=== PATIENT | female | born 1935 | race Caucasian/White ===

== ENCOUNTER 2018-03-31 13:56 | Emergency (ER) | payer OTHER ==
--- OUTSIDE RECORDS SUMMARY | 2018-03-31 13:58 | XMS REPORT | Clinical Summary ---
:1935 Author Organization [facility] Address [address] [place] [address] Phone Care Team Providers Name Role Phone Unavailable Primary Care Provider Unavailable Allergies Active Allergy Reactions Severity Noted Date Comments Tree Nut Swelling 05/11/2016 Only with "mixed nuts". Current Medications Prescription Sig. Disp. Refills Start Date End Date Status aspirin 81 MG EC tablet Take 81 mg by mouth Active daily. b complex vitamins tablet Take 1 tablet by Active mouth daily. buPROPion (WELLBUTRIN SR) Take 100 mg by Active 100 MG 12 hr tablet mouth daily. cyanocobalamin 1000 MCG Take 1,000 mcg by Active tablet mouth daily. difluprednate 0.05 % Drop Apply to eye(s). Active folic acid (FOLVITE) 1 MG Take 1 mg by mouth Active tablet daily. omega-3 fatty Take 2 capsules by Active acids-vitamin E 1,000 mg mouth daily. Cap pravastatin (PRAVACHOL) Take 20 mg by mouth Active 20 MG tablet daily. bromfenac 0.07 % Drop Apply to eye(s). Active RIVASTIGMINE (EXELON TD) Place 1 patch onto Active the skin daily. polymyxin B Place 1 drop into Active sulf-trimethoprim 10,000 the left eye. unit- 1 mg/mL Drop carvedilol (COREG) 6.25 Take 6.25 mg by Active MG tablet mouth 2 (two) times daily with breakfast and dinner. ergocalciferol Take 50,000 Units Active (ERGOCALCIFEROL) 50,000 by mouth once a unit capsule week. Active Problems Not on file Social History Tobacco Use Types Packs/Day Years Used Date Former Smoker Quit: 10/31/2012 Tobacco Cessation: Counseling Given: No Comments: Currently vaping "no nicotine" Alcohol Use Drinks/Week oz/Week Comments Yes occasionally Sex Assigned at Date Recorded Not on file Last Filed Vital Signs Not on file Plan of Treatment Not on file Results Not on fileafter 03/30/2017
[2018-03-31 14:41] LABS: Absolute Lymphocytes (CBC) 1.7 K/uL (0.7-4.9); Absolute Monocytes 0.4 K/uL (0.1-1.3); Absolute Neutrophil 3.5 K/uL (1.8-8.0); Basophils % 0.7 % (0-1.3); Eosinophils % 2.3 % (0-4.4); Hematocrit 39.6 % (36.0-45.0); Lymphocytes % 29.9 % (15.3-44.8); MCH 29.4 pg (27.0-35.0); MCV 88.6 fL (80-100); MPV 12.3 fL (7.6-11.3); Monocytes % 6.6 % (3.3-12.3); RBC Red Blood Cell Count 4.47 M/uL (3.86-4.86)
--- NOTE | 2018-03-31 14:49 | EKG ---
Test Date: 2018-03-31 Test Time: 14:27:32 Stenocaptioner: KATHY MEASUREMENT RESULTS: Intervals: Rate: 63 IN: 126 QRSD: 116 QT: 462 QTc: 472 [place]: P: 22 IN: 126 QRS: -60 T: -13 INTERPRETIVE STATEMENTS: Normal sinus rhythm Left axis deviation Incomplete right bundle branch block Inferior infarct, age undetermined Anterior infarct, age undetermined Abnormal ECG Compared to ECG 12/29/2017 22:43:34 No significant changes Electronically Signed On 03-31-18 14:49:15 CDT by Pineda Mcwilliams
[2018-03-31 14:51] LABS: Potassium 3.7 mEq/L (3.6-5.0)
--- NOTE | 2018-03-31 15:28 | ER ---
Nurse's Notes [facility] Name: Zonia Spencer Age: 82 yrs Sex: Female : 1935 Arrival Date: 03/31/2018 Time: 13:59 Bed 5 Private MD: Diagnosis: Syncope and collapse Presentation: 03/31 13:52 Presenting complaint: EMS states: [place] and sv daughter stated pt had a syncopal episode. Pt was helped to the ground. BS -128 BP 126/70, EKG-occasional PVCs. Transition of care: patient was not received from another setting of care. Onset of symptoms was March 31, 2018. Care prior to arrival: None. 13:52 Method Of Arrival: EMS: [facility] sv 13:52 Acuity: YAMILETH 3 sv 13:53 Risk Assessment: Do you want to hurt yourself or someone else? Patient reports no sv desire to harm self or others. Initial Sepsis Screen: Does the patient meet any 2 criteria? Altered Mental Status. Yes Does the patient have a suspected source of infection? No. Patient's initial sepsis screen is negative. Triage Assessment: 13:55 General: Appears in no apparent distress. comfortable, slender, Behavior is calm, sv cooperative, appropriate for age. Pain: Denies pain. EENT: No signs and/or symptoms were reported regarding the EENT system. Neuro: Level of Consciousness is awake, alert, obeys commands, Oriented to person, place, situation, Moves all extremities. Full function Speech is normal. Cardiovascular: Heart tones S1 S2 present Patient's skin is warm and dry. Pulses are 3+ in right radial artery and left radial artery Rhythm is sinus rhythm. Respiratory: Airway is patent Respiratory effort is even, unlabored, Respiratory pattern is regular, symmetrical. Derm: Skin is pink, warm \T\ dry. Musculoskeletal: Circulation, motion, and sensation intact. Range of motion: intact in all extremities. 15:10 Neuro: No deficits noted. Reports a syncopal episode. sg Historical: - Allergies: 14:05 No Known Allergies; sv - Home Meds: 14:05 alendronate 70 mg Oral tab 1 tab once wkly [Active]; aspirin 81 mg Oral TbEC 2 tabs sv once daily [Active]; bupropion HCl 100 mg Oral TbER 1 tab once daily [Active]; carvedilol 25 mg Oral tab 1 tab 2 times per day [Active]; Exelon 9.5 mg/24 hr transdermal pt24 1 patch once daily [Active]; Fish Oil 1,000 mg Oral cap twice a day [Active]; folic acid 1 mg Oral tab 1 tab once daily [Active]; multivitamin Oral tab daily [Active]; pravastatin 20 mg Oral tab 1 tab once daily [Active]; Vitamin B-12 1,000 mcg Oral tab daily [Active]; - PMHx: 14:05 Dementia; High Cholesterol; Hypertension; Osteoporosis; TIA; sv - PSHx: 14:05 Gastric Bypass; Cholecystectomy; eye surg; catartact surg bilaterally; sv - Immunization history:: Adult Immunizations unknown. - Social history:: Smoking status: Patient/guardian denies using tobacco. - Ebola Screening: : No symptoms or risks identified at this time. Screenin:00 Abuse screen: Denies threats or abuse. Denies injuries from another. Nutritional sv screening: No deficits noted. Tuberculosis screening: No symptoms or risk factors identified. Fall Risk No fall in past 12 months (0 pts). Secondary diagnosis (15 points) dementia, IV access (20 points). Ambulatory Aid- None/Bed Rest/Nurse Assist (0 pts). Gait- Normal/Bed Rest/Wheelchair (0 pts) Mental Status- Oriented to own ability (0 pts). Total Navarrete Fall Scale indicates Low Risk Score (25-44 pts). Fall prevention measures have been instituted. Side Rails Up X 2 Frequent Obs/Assesments occuring As available Patient and Family Educated on Fall Prevention Program and strategies. Assessment: 14:58 Reassessment: Patient appears in no apparent distress at this time. No changes from sv previously documented assessment. Patient and/or family updated on plan of care and expected duration. Pain level reassessed. Vital Signs: 14:06 BP 125 / 53; Pulse 64; Resp 19; Temp 97.5; Pulse Ox 96% on R/A; sv 14:58 BP 139 / 71; Pulse 62; Resp 16; Pulse Ox 99% on R/A; sv 15:45 BP 130 / 77; Pulse 63; Resp 18; Pulse Ox 97% on R/A; sv ED Course: 13:59 Patient arrived in ED. sv 14:00 Anastacia Balderas RN is Primary Nurse. sv 14:00 Arm band placed on right wrist. 14:00 Patient has correct armband on for positive identification. Placed in gown. Bed in low sv position. Side rails up X2. director of medical education on. Pulse ox on. NIBP on. Door closed. Warm blanket given. Head of bed elevated. 14:02 Triage completed. sv 14:04 Sal Bojorquez MD is Attending Physician. 14:08 Initial lab(s) drawn, by ok, held in ED. Inserted saline lock: 22 gauge in right [facility] antecubital area, using aseptic technique. Blood collected. 14:28 Initial lab(s) drawn, sent to lab. [facility] 14:35 EKG done, by analytical technician. reviewed by Sal Bojorquez MD. [facility] 15:00 No provider procedures requiring assistance completed. IV discontinued, intact, sg bleeding controlled, No redness/swelling at site. Pressure dressing applied. Administered Medications: No medications were administered Outcome: 15:28 Discharge ordered by MD. 16:30 Discharged to home ambulatory, with family. 16:30 Condition: stable 16:30 Discharge instructions given to patient, family, Instructed on discharge instructions, follow up and referral plans. safety practices, Demonstrated understanding of instructions, follow-up care. 16:32 Patient left the ED. [facility] Signatures: Anastacia Balderas RN RN Neftali Foy RN RN Nicky Butler [facility] Sal Bojorquez MD MD gs Montes, Shakira [facility]
--- NOTE | 2018-03-31 15:28 | EDPHYS ---
Physician Documentation [facility] Name: Zonia Spencer Age: 82 yrs Sex: Female : 1935 Arrival Date: 03/31/2018 Time: 13:59 Bed 5 Private MD: ED Physician Sal Bojorquez HPI: 03/31 15:43 This 82 yrs old Female presents to ER via EMS with complaints of Syncope. gs 15:43 The patient has experienced syncope, became unresponsive, collapsed. Onset: The gs symptoms/episode began/occurred acutely, just prior to arrival. Duration: This was a single episode, that lasted 30 second(s). Associated injury: The patient did not suffer any apparent associated injury. Associated signs and symptoms: Pertinent negatives: abdominal pain, agitation, ataxia, blurred vision, chest pain, combativeness, confusion, diaphoresis, diarrhea, dizziness, headache, lightheadedness, nausea, numbness, palpitations, seizure, shortness of breath, tingling, vertigo, vomiting, weakness. Current symptoms: Currently, the patient is not experiencing any symptoms, the patient feels back to baseline. The patient has experienced similar episodes in the past, multiple times, and the symptoms today are exactly the same, had work up , negative. Historical: - Allergies: 14:05 No Known Allergies; sv - Home Meds: 14:05 alendronate 70 mg Oral tab 1 tab once wkly [Active]; aspirin 81 mg Oral TbEC 2 tabs sv once daily [Active]; bupropion HCl 100 mg Oral TbER 1 tab once daily [Active]; carvedilol 25 mg Oral tab 1 tab 2 times per day [Active]; Exelon 9.5 mg/24 hr transdermal pt24 1 patch once daily [Active]; Fish Oil 1,000 mg Oral cap twice a day [Active]; folic acid 1 mg Oral tab 1 tab once daily [Active]; multivitamin Oral tab daily [Active]; pravastatin 20 mg Oral tab 1 tab once daily [Active]; Vitamin B-12 1,000 mcg Oral tab daily [Active]; - PMHx: 14:05 Dementia; High Cholesterol; Hypertension; Osteoporosis; TIA; sv - PSHx: 14:05 Gastric Bypass; Cholecystectomy; eye surg; catartact surg bilaterally; sv - Immunization history:: Adult Immunizations unknown. - Social history:: Smoking status: Patient/guardian denies using tobacco. - Ebola Screening: : No symptoms or risks identified at this time. ROS: 15:43 All other systems are negative. gs Exam: 15:43 Head/Face: Normocephalic, atraumatic. Eyes: Pupils equal round and reactive to light, gs extra-ocular motions intact. Lids and lashes normal. Conjunctiva and sclera are non-icteric and not injected. Cornea within normal limits. Periorbital areas with no swelling, redness, or edema. ENT: Nares patent. No nasal discharge, no septal abnormalities noted. Tympanic membranes are normal and external auditory canals are clear. Oropharynx with no redness, swelling, or masses, exudates, or evidence of obstruction, uvula midline. Mucous membranes moist. Neck: Trachea midline, no thyromegaly or masses palpated, and no cervical lymphadenopathy. Supple, full range of motion without nuchal rigidity, or vertebral point tenderness. No Meningismus. Chest/axilla: Normal chest wall appearance and motion. Nontender with no deformity. No lesions are appreciated. Cardiovascular: Regular rate and rhythm with a normal S1 and S2. No gallops, murmurs, or rubs. Normal PMI, no JVD. No pulse deficits. Respiratory: Lungs have equal breath sounds bilaterally, clear to auscultation and percussion. No rales, rhonchi or wheezes noted. No increased work of breathing, no retractions or nasal flaring. Abdomen/GI: Soft, non-tender, with normal bowel sounds. No distension or tympany. No guarding or rebound. No evidence of tenderness throughout. Back: No spinal tenderness. No costovertebral tenderness. Full range of motion. Skin: Warm, dry with normal turgor. Normal color with no rashes, no lesions, and no evidence of cellulitis. MS/ Extremity: Pulses equal, no cyanosis. Neurovascular intact. Full, normal range of motion. Neuro: Awake and alert, GCS 15, oriented to person, place, time, and situation. Cranial nerves II-XII grossly intact. Motor strength 5/5 in all extremities. Sensory grossly intact. Cerebellar exam normal. Normal gait. 15:43 ECG was reviewed by the Attending Physician. Vital Signs: 14:06 BP 125 / 53; Pulse 64; Resp 19; Temp 97.5; Pulse Ox 96% on R/A; sv 14:58 BP 139 / 71; Pulse 62; Resp 16; Pulse Ox 99% on R/A; sv 15:45 BP 130 / 77; Pulse 63; Resp 18; Pulse Ox 97% on R/A; sv MDM: 14:13 Patient medically screened. 15:43 Differential Diagnosis: cardiac arrhythmia, drug effect, idiopathic syncope. Data reviewed: vital signs, nurses notes. Response to treatment: the patient's symptoms have resolved after treatment, and as a result, I will discharge patient. 03/31 14:16 Order name: Basic Metabolic Panel; Complete Time: 15:27 03/31 14:16 Order name: CBC with Diff; Complete Time: 15:27 03/31 14:16 Order name: Troponin (emerg Dept Use Only); Complete Time: 15:27 03/31 14:16 Order name: EKG; Complete Time: 14:17 03/31 14:16 Order name: Cardiac monitoring; Complete Time: 14:41 03/31 14:16 Order name: EKG - Nurse/Tech; Complete Time: 14:41 03/31 14:16 Order name: IV Saline Lock; Complete Time: 14:41 03/31 14:16 Order name: Labs collected and sent; Complete Time: 14:41 03/31 14:16 Order name: O2 Per Protocol; Complete Time: 14:41 03/31 14:16 Order name: O2 Sat Monitoring; Complete Time: 14:41 EC:43 Rate is 63 beats/min. Rhythm is regular. MT interval is normal. QT interval is normal. gs T waves are Flattened. No ST changes noted. Clinical impression: NSR w/ Non-specific ST/T Changes. Interpreted by me. Administered Medications: No medications were administered Disposition: 03/31/18 15:28 Discharged to Home. Impression: Syncope and collapse. - Condition is Stable. - Discharge Instructions: Syncope. - Medication Reconciliation Form, Thank You Letter, Antibiotic Education, Prescription Opioid Use form. - Follow up: Private Physician; When: 2 - 3 days; Reason: Re-evaluation by your physician. Signatures: Dispatcher [employer] Anastacia Briseno RN RN sv Herrera, Deanna [facility] Sal Bojorquez MD MD Corrections: (The following items were deleted from the chart) 16:32 15:28 03/31/2018 15:28 Discharged to Home. Impression: Syncope and collapse. Condition dh3 is Stable. Forms are Medication Reconciliation Form, Thank You Letter, Antibiotic Education, Prescription Opioid Use. Follow up: Private Physician; When: 2 - 3 days; Reason: Re-evaluation by your physician. gs
== END 2018-03-31 16:32 | disposition home or self-care (01) ==
LOC: ER 13:56
DX: R55 Syncope and collapse (principal); I10 Essential (primary) hypertension; E78.00 Pure hypercholesterolemia, unspecified; F03.90 Unspecified dementia, unspecified severity, without behavioral disturbance, psychotic disturbance, mood disturbance, and anxiety; Z79.82 Long term (current) use of aspirin
CPT/HCPCS: 36415; 80048; 84484; 85025; 93005; 99284

== ENCOUNTER 2018-05-04 16:50 | Emergency (ER) | payer OTHER ==
--- OUTSIDE RECORDS SUMMARY | 2018-05-04 16:52 | XMS REPORT | Clinical Summary ---
:1935 Author Organization [facility] Address [address] [place] [address] Phone Care Team Providers Name Role Phone [...] Not on file Results Not on fileafter 05/03/2017
--- NOTE | 2018-05-04 17:41 | RAD REPORT ---
EXAM DESCRIPTION: CT - Head Brain Wo Cont - 05/04/2018 5:34 pm CLINICAL HISTORY: Fall, trauma to back of head, headache COMPARISON: CT head December 29 TECHNIQUE: Axial 5 mm thick images of the head were obtained without IV contrast. All CT scans are performed using dose optimization technique as appropriate and may include automated exposure control or mA/KV adjustment according to patient size. FINDINGS: No intracranial hemorrhage, mass, edema or shift of mid-line structures. No acute cortical based infarction. Patient has prominent atrophy and chronic ischemic change. No abnormal extra-axial fluid collections. Ventricles are in proportion to volume loss. Arterial and physiologic calcificati ons are present. Mastoid air cells and visualized portions of the paranasal sinuses are clear. No acute bony findings. Skin randy are present posterior left site of laceration repair. CT head findings are not significantly different from the December 29 comparison. IMPRESSION: Advanced atrophy and chronic ischemic change. No acute intracranial finding.
--- NOTE | 2018-05-04 17:57 | ER ---
Nurse's Notes [facility] Name: Zonia Spencer Age: 82 yrs Sex: Female : 1935 Arrival Date: 05/04/2018 Time: 16:54 Bed 19 Private MD: CHECO HATCH Diagnosis: Laceration without foreign body of scalp Presentation: 05/04 17:02 Presenting complaint: Patient states: I was walking into the house, lost my balance and sg started falling backwards, fell and hit my head on the railing, denies LOC, denies N/V/D/F, reports left pinky pain but i think its due to the laceration. Care prior to arrival: None. Mechanism of Injury: Fall from standing position. 17:02 Acuity: YAMILETH 3 sg 17:02 Method Of Arrival: Ambulatory sg 18:31 Transition of care: patient was not received from another setting of care. Onset of aj1 symptoms was May 04, 2018. Risk Assessment: Do you want to hurt yourself or someone else? Patient reports no desire to harm self or others. Initial Sepsis Screen: Does the patient meet any 2 criteria? No. Patient's initial sepsis screen is negative. Does the patient have a suspected source of infection? No. Patient's initial sepsis screen is negative. Historical: - Allergies: 17:05 No Known Allergies; sg - PMHx: 17:05 Dementia; High Cholesterol; Hypertension; Osteoporosis; TIA; sg - PSHx: 17:05 Gastric Bypass; Cholecystectomy; eye surg; catartact surg bilaterally; sg - Immunization history:: Last tetanus immunization: up to date. - Social history:: Smoking status: Patient/guardian denies using tobacco. - Ebola Screening: : Patient denies travel to an Ebola-affected area in the 21 days before illness onset. Screenin:30 Abuse screen: Denies threats or abuse. Denies injuries from another. Nutritional aj1 screening: No deficits noted. Tuberculosis screening: No symptoms or risk factors identified. 17:30 Fall Risk Fall in past 12 months (25 points). No secondary diagnosis (0 pts). No IV (0 aj1 pts). Ambulatory Aid- None/Bed Rest/Nurse Assist (0 pts). Gait- Normal/Bed Rest/Wheelchair (0 pts) Mental Status- Oriented to own ability (0 pts). Total Navarrete Fall Scale indicates Low Risk Score (25-44 pts). As available Patient and Family Educated on Fall Prevention Program and strategies. Assessment: 17:30 General: Appears in no apparent distress. comfortable, Behavior is calm, cooperative, aj1 appropriate for age. Pain: Complains of pain in scalp. Neuro: Level of Consciousness is awake, alert, obeys commands, Oriented to person, place, time, situation, [place] Operator are equal bilaterally Moves all extremities. Full function Speech is normal, Facial symmetry appears normal. Cardiovascular: Patient's skin is warm and dry. Respiratory: Airway is patent Respiratory effort is even, unlabored, Respiratory pattern is regular, symmetrical. GI: No signs and/or symptoms were reported involving the gastrointestinal system. : No signs and/or symptoms were reported regarding the genitourinary system. EENT: No signs and/or symptoms were reported regarding the EENT system. Derm: Skin is pink, warm \T\ dry. normal. Musculoskeletal: Circulation, motion, and sensation intact. Injury Description: Laceration sustained to left side of the back of head is 0.5 to 2.5 cm long. 18:31 Reassessment: Patient appears in no apparent distress at this time. No changes from aj1 previously documented assessment. Patient and/or family updated on plan of care and expected duration. Pain level reassessed. Patient is alert, oriented x 3, equal unlabored respirations, skin warm/dry/pink. Vital Signs: 17:04 BP 198 / 81; Pulse 75 MON; Resp 16 S; Temp 98.1; Pulse Ox 98% on R/A; Weight 66.22 kg; sg Height 5 ft. 2 in. (157.48 cm) (R); Pain 0/10; 18:15 BP 182 / 88; Pulse 63; Resp 18; Pulse Ox 99% ; aj1 17:04 Body Mass Index 26.70 (66.22 kg, 157.48 cm) sg [place] Coma Score: 17:04 Eye Response: spontaneous(4). Verbal Response: oriented(5). Motor Response: obeys sg commands(6). Total: 15. ED Course: 16:54 Patient arrived in ED. sb2 16:54 CHECO HATCH is Private Physician. sb2 17:04 Triage completed. sg 17:06 [facility] jr8 17:06 Levar Trevino MD is Attending Physician. jr8 17:17 Patsy Mims, RN is Primary Nurse. aj1 17:[address] kc3 17:30 Patient has correct armband on for positive identification. Bed in low position. Call aj1 light in reach. Side rails up X 1. 17:30 No provider procedures requiring assistance completed. Patient did not have IV access aj1 during this emergency room visit. 17:34 CT Head Brain wo Cont In Process Unspecified. EDMS 17:57 CHECO HATCH is Referral Physician. jr8 Administered Medications: 18:19 Not Given (tetanus up to date): Tetanus-Diphtheria Toxoid Adult 0.5 ml IM once aj Outcome: 17:57 Discharge ordered by . jr8 18:32 Discharged to home ambulatory. aj1 18:32 Condition: good 18:32 Discharge instructions given to patient, Instructed on discharge instructions, follow up and referral plans. Demonstrated understanding of instructions, follow-up care. 18:33 Patient left the ED. aj1 Signatures: Dispatcher [employer] EDMO Patsy Mims, RN RN aj1 Neftali Foy RN RN Oneil Wyman PA PA jr8 Bridget Bruce kc3 Sangita William2
--- NOTE | 2018-05-04 17:58 | EDPHYS ---
Physician Documentation [facility] Name: Zonia Spencer Age: 82 yrs Sex: Female : 1935 Arrival Date: 05/04/2018 Time: 16:54 Bed 19 Private MD: [facility] ED Physician Levar Trevino HPI: 05/04 17:24 This 82 yrs old Female presents to ER via Ambulatory with complaints of Fall jr8 Injury. 17:24 Details of fall: The patient fell from an upright position. Onset: The symptoms/episode jr8 began/occurred acutely, today. Associated injuries: The patient sustained injury to the head, laceration, 2.5 cm(s). Severity of symptoms: At their worst the symptoms were mild, in the emergency department the symptoms are unchanged. The patient has not experienced similar symptoms in the past. The patient has not recently seen a physician. Patient stated that she lost balance and fell backwards hitting the back of her head. Denies LOC. Historical: - Allergies: 17:05 No Known Allergies; sg - PMHx: 17:05 Dementia; High Cholesterol; Hypertension; Osteoporosis; TIA; sg - PSHx: 17:05 Gastric Bypass; Cholecystectomy; eye surg; catartact surg bilaterally; sg - Immunization history:: Last tetanus immunization: up to date. - Social history:: Smoking status: Patient/guardian denies using tobacco. - Ebola Screening: : Patient denies travel to an Ebola-affected area in the 21 days before illness onset. ROS: 17:24 Eyes: Negative for injury, pain, redness, and discharge, ENT: Negative for injury, jr8 pain, and discharge, Neck: Negative for injury, pain, and swelling, Cardiovascular: Negative for chest pain, palpitations, and edema, Respiratory: Negative for shortness of breath, cough, wheezing, and pleuritic chest pain, Abdomen/GI: Negative for abdominal pain, nausea, vomiting, diarrhea, and constipation, Back: Negative for injury and pain, MS/Extremity: Negative for injury and deformity, Neuro: Negative for headache, weakness, numbness, tingling, and seizure. 17:24 Skin: Positive for laceration(s), of the scalp. Exam: 17:24 Eyes: Pupils equal round and reactive to light, extra-ocular motions intact. Lids and jr8 lashes normal. Conjunctiva and sclera are non-icteric and not injected. Cornea within normal limits. Periorbital areas with no swelling, redness, or edema. ENT: Nares patent. No nasal discharge, no septal abnormalities noted. Tympanic membranes are normal and external auditory canals are clear. Oropharynx with no redness, swelling, or masses, exudates, or evidence of obstruction, uvula midline. Mucous membranes moist. Neck: Trachea midline, no thyromegaly or masses palpated, and no cervical lymphadenopathy. Supple, full range of motion without nuchal rigidity, or vertebral point tenderness. No Meningismus. Cardiovascular: Regular rate and rhythm with a normal S1 and S2. No gallops, murmurs, or rubs. Normal PMI, no JVD. No pulse deficits. Respiratory: Lungs have equal breath sounds bilaterally, clear to auscultation and percussion. No rales, rhonchi or wheezes noted. No increased work of breathing, no retractions or nasal flaring. Abdomen/GI: Soft, non-tender, with normal bowel sounds. No distension or tympany. No guarding or rebound. No evidence of tenderness throughout. Back: No spinal tenderness. No costovertebral tenderness. Full range of motion. Skin: Warm, dry with normal turgor. Normal color with no rashes, no lesions, and no evidence of cellulitis. MS/ Extremity: Pulses equal, no cyanosis. Neurovascular intact. Full, normal range of motion. Neuro: Awake and alert, GCS 15, oriented to person, place, time, and situation. Cranial nerves II-XII grossly intact. Motor strength 5/5 in all extremities. Sensory grossly intact. Cerebellar exam normal. Normal gait. 17:24 Head/face: Noted is a laceration(s), that is deep, that is linear, 2.5 cm(s), of the left side of the back of head. Vital Signs: 17:04 BP 198 / 81; Pulse 75 MON; Resp 16 S; Temp 98.1; Pulse Ox 98% on R/A; Weight 66.22 kg; Height 5 ft. 2 in. (157.48 cm) (R); Pain 0/10; 18:15 BP 182 / 88; Pulse 63; Resp 18; Pulse Ox 99% ; aj1 17:04 Body Mass Index 26.70 (66.22 kg, 157.48 cm) Graeme Coma Score: 17:04 Eye Response: spontaneous(4). Verbal Response: oriented(5). Motor Response: obeys sg commands(6). Total: 15. Laceration: 17:24 Wound Repair of 2.5cm ( 1.0in ) subcutaneous laceration to left side of the back of jr8 head. Distal neuro/vascular/tendon intact. Wound prep: Extensive cleansing with hibiclenz, Wound irrigation with saline, Wound explored extensively. Skin closed with 7 randy [place] using interrupted sutures and sterile technique. Patient tolerated well. MDM: 17:06 Patient medically screened. jr8 17:24 Data reviewed: vital signs, nurses notes, radiologic studies, CT scan, and as a result, jr8 I will discharge patient. Data interpreted: Pulse oximetry: on room air is 98 %. Interpretation: normal. Counseling: I had a detailed discussion with the patient and/or guardian regarding: the historical points, exam findings, and any diagnostic results supporting the discharge/admit diagnosis, lab results, radiology results, the need for outpatient follow up, a family practitioner, to return to the emergency department if symptoms worsen or persist or if there are any questions or concerns that arise at home. 05/04 17:23 Order name: CT Head Brain wo Cont; Complete Time: 17:56 jr8 Administered Medications: 18:19 Not Given (tetanus up to date): Tetanus-Diphtheria Toxoid Adult 0.5 ml IM once aj1 Disposition: 18:35 Co-signature as Attending Physician, Levar Trevino MD. rn Disposition: 05/04/18 17:57 Discharged to Home. Impression: Laceration without foreign body of scalp. - Condition is Stable. - Discharge Instructions: Laceration Care, Adult. - Medication Reconciliation Form, Thank You Letter, Antibiotic Education, Prescription Opioid Use form. - Follow up: [facility]; When: 1 week; Reason: Wound Recheck, Recheck today's complaints, Continuance of care, Staple/Suture removal, Re-evaluation by your physician. - Problem is new. - Symptoms have improved. Signatures: Dispatcher [employer] EDPatsy Puckett RN RN aj1 Neftali Foy RN RN sg Nieto, Roman, MD MD rn Roszak, Josh, PA PA jr8 Corrections: (The following items were deleted from the chart) 18:33 17:57 05/04/2018 17:57 Discharged to Home. Impression: Laceration without foreign body aj1 of scalp. Condition is Stable. Forms are Medication Reconciliation Form, Thank You Letter, Antibiotic Education, Prescription Opioid Use. Follow up: [facility]; When: 1 week; Reason: Wound Recheck, Recheck today's complaints, Continuance of care, Staple/Suture removal, Re-evaluation by your physician. Problem is new. Symptoms have improved. jr8
== END 2018-05-04 18:33 | disposition home or self-care (01) ==
LOC: ER 16:50
PROC: 0HQ0XZZ Repair Scalp Skin, External Approach (ICD-10-PCS; principal; 2018-05-04)
DX: S01.01XA Laceration without foreign body of scalp, initial encounter (principal); F03.90 Unspecified dementia, unspecified severity, without behavioral disturbance, psychotic disturbance, mood disturbance, and anxiety; I10 Essential (primary) hypertension; W19.XXXA Unspecified fall, initial encounter; Y93.89 Activity, other specified; Y92.9 Unspecified place or not applicable; Y99.9 Unspecified external cause status
CPT/HCPCS: 70450; 99284

== ENCOUNTER 2019-05-27 12:17 | Emergency (ER) | payer OTHER ==
--- OUTSIDE RECORDS SUMMARY | 2019-05-27 12:19 | XMS REPORT | Clinical Summary ---
:1935 Author Organization [facility] Address [address] [place] [id number] Care Team Providers Name Role Phone Joe Primary Care Provider Allergies Active Allergy Reactions Severity Noted Date Comments Tree Nut Swelling 05/11/2016 Only with "mixed nuts". Medications Medication Sig Dispensed Refills Start Date End Date Status aspirin 81 MG EC tablet Take 81 mg by 0 Active mouth daily. b complex vitamins Take 1 tablet by 0 Active tablet mouth daily. buPROPion (WELLBUTRIN Take 100 mg by 0 Active SR) 100 MG 12 hr tablet mouth daily. cyanocobalamin 1000 MCG Take 1,000 mcg by 0 Active tablet mouth daily. difluprednate 0.05 % Apply to eye(s). 0 Active Drop folic acid (FOLVITE) 1 Take 1 mg by 0 Active MG tablet mouth daily. omega-3 fatty Take 2 capsules 0 Active acids-vitamin E 1,000 by mouth daily. mg Cap pravastatin (PRAVACHOL) Take 20 mg by 0 Active 20 MG tablet mouth daily. bromfenac 0.07 % Drop Apply to eye(s). 0 Active RIVASTIGMINE (EXELON Place 1 patch 0 Active TD) onto the skin daily. polymyxin B Place 1 drop into 0 Active sulf-trimethoprim the left eye. 10,000 unit- 1 mg/mL Drop carvedilol (COREG) 6.25 Take 6.25 mg by 0 Active MG tablet mouth 2 (two) times daily with breakfast and dinner. ergocalciferol Take 50,000 Units 0 Active (ERGOCALCIFEROL) 50,000 by mouth once a unit capsule week. Active Problems Not on file Social History Tobacco Use Types Packs/Day Years Used Date Former Smoker Quit: 10/31/2012 Tobacco Cessation: Counseling Given: No Comments: Currently vaping "no nicotine" Alcohol Use Drinks/Week oz/Week Comments Yes occasionally Sex Assigned at Date Recorded Not on file Job Start Date Occupation Industry Not on file Not on file Not on file Travel History Travel Start Travel End No recent travel history available. Last Filed Vital Signs Not on file Plan of Treatment Not on file Results Not on fileafter 05/26/2018 Insurance Payer Benefit Plan / Group Subscriber ID Type Phone Address MEDICARE MEDICARE A B xxxxxxxxxx Medicare (Home) [address] [place] [phone] Advance Directives Patient has advance care planning documents on file. For more information, please contact:[address] [phone]
[2019-05-27 12:56] LABS: Absolute Lymphocytes (CBC) 1.4 K/uL (0.7-4.9); Basophils % 0.4 % (0-1.3); Hematocrit 39.2 % (36.0-45.0); Lymphocytes % 21.5 % (15.3-44.8); RBC Red Blood Cell Count 4.43 M/uL (3.86-4.86)
[2019-05-27 12:59] LABS: Protime INR 0.91
[2019-05-27 13:13] LABS: Albumin 3.6 g/dL (3.4-5.0); Bilirubin Direct 0.2 mg/dL (0-0.2); Bilirubin Total 0.5 mg/dL (0.2-1.0); CKMB Creatine Kinase MB 5.2 ng/mL (0.3-3.6); Magnesium 2.2 mg/dL (1.8-2.4); Potassium 3.3 mmol/L (3.5-5.1); Protein, Total 6.7 g/dL (6.4-8.2)
--- NOTE | 2019-05-27 13:14 | RAD REPORT ---
EXAM DESCRIPTION: RAD - Chest Single View - 05/27/2019 12:54 pm CLINICAL HISTORY: Transient alteration of awareness, weakness, cough COMPARISON: December 2017 TECHNIQUE: AP portable chest image was obtained 1253 hours . FINDINGS: No focal mass or consolidation. Patient has a baseline prominent interstitial pattern that is accentuated by under penetrated film technique. Left hemithorax volume reduction due to patient l eaning to the left. Lung markings are slightly greater than the prior study. Early interstitial edema or infiltrate not e xcluded. Heart size is normal and vasculature within normal limits. Significant failure or volume ove rload not suspected. No measurable pleural effusion and no pneumothorax. No acute bony abnormality se en. No acute aortic findings suspected. IMPRESSION: No focal mass or consolidation. Perihilar markings are slightly greater than seen previo usly. Mild interstitial edema or infiltrate could be present without significant failure or volume overload .
[2019-05-27] MEDS ORDERED: cloNIDine HCl 0.1 MG TAB ONE (13:46)
--- NOTE | 2019-05-27 14:09 | RAD REPORT ---
EXAM DESCRIPTION: CT - Ct Stroke Brain Wo Cont - 05/27/2019 1:37 pm CLINICAL HISTORY: Slurred speech, weakness, dementia, stroke protocol study CLINICAL HISTORY: CT head April 2018 TECHNIQUE: Axial 5 millimeter thick images of the head were obtained without IV contrast. All CT scans are performed using dose optimization technique as appropriate and may include automated exposure control or mA/KV adjustment according to patient size. FINDINGS: No intracranial hemorrhage, mass, or cerebral edema. No acute cortical based infarction. N o cortical edema or sulcal effacement. Patient has advanced atrophy and chronic ischemic change. Vent ricles are in proportion to volume loss. No extra-axial fluid collections. Richardson matter-white matter differentiation is preserved. No globe or orbital content acute finding. Visualized portions of the mastoid air cells, paranasal sinuses, and orbits are unremarkable. Images were reviewed and findings telephoned to the referring clinician 12:36 p.m.. Exam was only ini tially available in the exception folder which precludes immediate dictation of the report. IMPRESSION: No CT evidence of acute intracranial process. Patient has advanced atrophy and chronic ischemic change not substantially different from prior year' s study. Chronic ischemic change can mask nonhemorrhagic acute CVA.
[2019-05-27] MEDS ORDERED: NA CHLORIDE 0.9% 1,000 ML ONE (14:16)
[2019-05-27] MEDS ORDERED: POTASSIUM 25 MEQ EFFERV TAB ONE (15:17)
[2019-05-27] MEDS ORDERED: LORazepam 2 MG/ML VIAL ONE (15:30)
[2019-05-27] MEDS ORDERED: levETIRAcetam 1,000 MG in NA CHLORIDE 0.9% 100 ML IV ONE (15:30)
--- NOTE | 2019-05-27 15:42 | RAD REPORT ---
EXAM DESCRIPTION: CT - Head Brain Wo Cont - 05/27/2019 3:33 pm CLINICAL HISTORY: New onset seizure COMPARISON: May 27 TECHNIQUE: Axial 5 mm thick images of the head were obtained without IV contrast. All CT scans are performed using dose optimization technique as appropriate and may include automated exposure control or mA/KV adjustment according to patient size. FINDINGS: No intracranial hemorrhage is present. No changes to the prominent atrophy and chronic isc hemic change previously detailed. No new intracranial finding. IMPRESSION: No intracranial hemorrhage. No changes to the intracranial findings since the earlier st .
[2019-05-27] MEDS ORDERED: METOPROLOL TARTRATE 5 MG/5 ML INJ IV ONE (16:11)
[2019-05-27] MEDS ORDERED: FOLIC ACID 5 MG/ML VIAL ONE (16:12)
--- NOTE | 2019-05-27 16:49 | ER ---
Nurse's Notes [facility] Name: Zonia Spencer Age: 83 yrs Sex: Female : 1935 Arrival Date: 05/27/2019 Time: 12:18 Bed 3 Private MD: Diagnosis: Seizure;Weakness-legs Presentation: 05/27 12:23 Presenting complaint: Child states: her sister went to see her yesterday and noticed sv she was a little spaced out but got back to her baseline. Daughter stated today she called her around 0800 and her voice was "different or a little slurred"; when she got to her house around 0830 pt was fine and asked her to get her a sweet tea. Daughter came back around 1145 and noticed she was not her normal and unable to get out of her chair, her brothers had to get her into the car. Transition of care: patient was not received from another setting of care. 12:23 Method Of Arrival: Wheelchair sv 12:27 An acute neurological deficit is present. The charge nurse has been notified. sv Pre-hospital glucose is not applicable to this patient. Onset of symptoms was May 27, 2019 at 11:45. Care prior to arrival: None. 12:27 Acuity: YAMILETH 2 sv 12:49 Risk Assessment: Do you want to hurt yourself or someone else? Patient reports no ss desire to harm self or others. Initial Sepsis Screen: Does the patient meet any 2 criteria? No. Patient's initial sepsis screen is negative. Does the patient have a suspected source of infection? No. Patient's initial sepsis screen is negative. Stroke Activation: Symptom onset < 3 hours Physician: Stroke Attending; Name: ; Notified At: ; Arrived At: Physician: Chief Stroke Resident; Name: ; Notified At: ; Arrived At: Physician: Stroke Resident; Name: ; Notified At: ; Arrived At: Physician: ED Attending; Name: Dr Gorman; Notified At: 12:27; Arrived At: Physician: ED Resident; Name: ; Notified At: ; Arrived At: Historical: - Allergies: 12:39 No Known Allergies; sv - Home Meds: 12:39 alendronate 70 mg Oral tab 1 tab once wkly [Active]; pravastatin 20 mg Oral tab 1 tab sv once daily [Active]; folic acid 1 mg Oral tab 1 tab once daily [Active]; Exelon 9.5 mg/24 hr transdermal pt24 1 patch once daily [Active]; Lisinopril Oral [Active]; carvedilol 25 mg Oral tab 1 tab 2 times per day [Active]; bupropion HCl 100 mg Oral TbER 1 tab once daily [Active]; aspirin 81 mg Oral TbEC 2 tabs once daily [Active]; Fish Oil 1,000 mg Oral cap twice a day [Active]; multivitamin Oral tab daily [Active]; Vitamin B-12 1,000 mcg Oral tab daily [Active]; - PMHx: 12:39 Dementia; High Cholesterol; Hypertension; Osteoporosis; TIA; sv - PSHx: 12:39 Gastric Bypass; Cholecystectomy; catartact surg bilaterally; eye surg; sv - Immunization history:: Adult Immunizations up to date. - Social history:: Smoking status: Patient/guardian denies using tobacco. - Ebola Screening: : Patient denies exposure to infectious person Patient denies travel to an Ebola-affected area in the 21 days before illness onset. Screenin:47 Abuse screen: Denies threats or abuse. Denies injuries from another. Nutritional ss screening: No deficits noted. Tuberculosis screening: Never had TB. 12:49 VAN Screening: Arm Drift: Patient shows no arm weakness. Patient is VAN negative. ss Visual Disturbance: No visual disturbance noted. Aphasia: No aphasia noted. Neglect: No neglect noted. Fall Risk. Assessment: 12:27 Reassessment: Code Stroke called and taken to CT by Nahomy from CT. sv 12:49 VAN Scoring: Arm Drift: Minor drift Visual Disturbance: No visual disturbance noted. ss Aphasia: No aphasia noted. Neglect: No neglect noted. 12:50 Reassessment: Patient and daughter report that patient has taken her daily medication ss this morning including blood pressure meds. General: Appears in no apparent distress. comfortable, Behavior is calm, cooperative, Denies fever, feeling ill, fatigue. Pain: Denies pain. Neuro: Level of Consciousness is awake, alert, obeys commands, Speech daughter reports that patients voice sounds slurred to her after speaking to her over the phone at 0800. Patient reports when she woke up this morning she felt fine, never noticed if an/or when her voice changed, but states that her lower extremities were weak and she was unable to get back up out of her wheelchair. Daughter states that patient has had these episodes typically when she exerts herself at the grocery store and she needs to sit down and use a wheelchair. . Cardiovascular: Heart tones S1 S2 present Patient's skin is warm and dry. Respiratory: Airway is patent Respiratory effort is even, unlabored, Respiratory pattern is regular, symmetrical, Denies cough, shortness of breath. GI: Abdomen is distended, Abd is soft and non tender X 4 quads. Patient currently denies abdominal pain, diarrhea, nausea, vomiting. : No signs and/or symptoms were reported regarding the genitourinary system. EENT: Nares are clear Oral mucosa is moist. Throat is clear. Derm: Skin is fragile, is thin, Skin is dry, Skin is pink, warm \\T\\ dry. normal. Musculoskeletal: Circulation, motion, and sensation intact. Swelling absent Reports weakness in bilateral legs that began this morning, but has been episodic for some time. 12:54 Patient has been NPO before screening. The patient is alert, and able to follow em commands. daughter states speech was slurred at 0800 this morning, reports speech has improved The patient does not exhibit difficulty understanding words. The patient is able to swallow own secretions with no drooling or need for suction. Patient tolerated one teaspoon of water. No drooling, immediate coughing, gurgling, or clearing of the throat was noted. The patient tolerated 90mL of water. No drooling, immediate coughing, gurgling, or clearing of the throat was noted. The patient passed the bedside swallow screening. Oral medications may be given as ordered. Contact Physician for further diet orders. Provider notified of bedside swallow screening results: Merritt RAMON. 13:48 Reassessment: Patient appears in no apparent distress at this time. Patient and/or em family updated on plan of care and expected duration. Pain level reassessed. Patient is alert, oriented x 3, equal unlabored respirations, skin warm/dry/pink. reports weakness in legs but is able to move lower extremities, family at bedside Patient denies pain at this time. Patient states symptoms have improved. 15:18 Reassessment: seizure activity noted that lasted about 30-60 seconds, provider at em bedside, placed on NRB mask at 15 LPM, repeat EKG, snoring respirations noted, pt transferred to repeat head CT, charge nurse notified. 15:40 Reassessment: Pt back from CT. Report received from CECY Whittaker. aa5 15:40 Reassessment: Pt is post-ictal, pt open eyes to verbal stimuli. Pt unable to follow aa5 commands at this time. Left pupil irregular and non-reactive to light. Right pupil is 3mm, round, and reactive to light. Pain: Unable to use pain scale. Does not appear to understand pain scale. Cardiovascular: Rhythm is sinus tachycardia. Respiratory: Airway is patent Respiratory effort is even, unlabored, Respiratory pattern is regular, symmetrical, Breath sounds are clear bilaterally. GI: Abdomen is round Bowel sounds present X 4 quads. Abd is soft X 4 quads. Derm: Skin is pink, warm \\T\\ dry. 16:30 Pain: Denies pain. Neuro: Level of Consciousness is drowsy, pt awakens to verbal aa5 stimuli, pt is able to follow some commands . Oriented to person, place, Commercial Attorney are weak bilaterally Moves all extremities. Speech difficult to understand . Facial symmetry appears normal, left pupil is irregular and not reactive to light. Right pupil is 3mm in size, round and reactive to light. . Cardiovascular: Rhythm is sinus rhythm. Respiratory: Airway is patent Respiratory effort is even, unlabored, Respiratory pattern is regular, symmetrical. Derm: Skin is pink, warm \\T\\ dry. 16:54 Reassessment: TRISTEN Ricardo notified of BP 91/50. 250 mL NS bolus ordered and ss administered. 17:00 Neuro: Level of Consciousness is drowsy, pt moans to painful stimuli . Cardiovascular: aa5 Rhythm is sinus rhythm. Respiratory: Airway is patent Respiratory effort is even, unlabored, Respiratory pattern is regular, symmetrical. Derm: Skin is pink, warm \\T\\ dry. 17:20 Neuro: Level of Consciousness is drowsy, pt awakens to verbal and tactile stimuli. Pt aa5 unable to follow commands at this time. . Oriented to person, place, Speech difficult to understand. Cardiovascular: Rhythm is sinus rhythm. Respiratory: Airway is patent Respiratory effort is even, unlabored, Respiratory pattern is regular, symmetrical. Derm: Skin is pink, warm \\T\\ dry. Vital Signs: 12:37 BP 208 / 99; Pulse 91; Resp 16; Pulse Ox 99% on R/A; Pain 0/10; em 13:03 BP 198 / 97; Pulse 86; Resp 16; Pulse Ox 98% on R/A; Pain 0/10; em 13:49 BP 182 / 82; Pulse 76; Resp 16; Pulse Ox 100% on R/A; Pain 0/10; em 14:30 BP 122 / 70; Pulse 69; Resp 20; Pulse Ox 97% on R/A; em 15:00 BP 113 / 67; Pulse 68; Resp 16; Pulse Ox 99% on R/A; Pain 0/10; em 15:42 BP 211 / 109; Pulse 111; Resp 18 S; Temp 97.5(TE); Pulse Ox 100% on 2 lpm NC; aa5 15:50 BP 215 / 108; Pulse 108; Resp 16 S; Pulse Ox 100% on 2 lpm NC; aa5 15:59 BP 151 / 87; Pulse 88; Resp 16 S; Pulse Ox 100% on 2 lpm NC; aa5 16:06 BP 150 / 79; Pulse 89; Resp 16 S; Pulse Ox 100% on 2 lpm NC; aa5 16:15 BP 130 / 67; Pulse 82; Resp 16 S; Pulse Ox 100% on 2 lpm NC; aa5 16:20 BP 111 / 62; Pulse 74; Resp 16 S; Pulse Ox 100% on 2 lpm NC; aa5 16:30 BP 134 / 74; Pulse 75; Resp 14 S; Pulse Ox 100% on 2 lpm NC; aa5 16:40 BP 106 / 60; Pulse 69; Resp 16 S; Pulse Ox 100% on 2 lpm NC; aa5 16:54 BP 91 / 50; Pulse 75; ss 16:54 aa5 16:58 BP 87 / 47; Pulse 64; Resp 16 S; Pulse Ox 100% on 2 lpm NC; aa5 17:04 BP 84 / 48; Pulse 62; Resp 14 S; Pulse Ox 100% on 2 lpm NC; aa5 17:10 BP 153 / 86; Pulse 69; Resp 18 S; Pulse Ox 100% on 2 lpm NC; aa5 17:30 BP 132 / 62; Pulse 69; Resp 16 S; Temp 97.3(TE); Pulse Ox 100% on 2 lpm NC; aa5 15:42 PA notified aa5 15:59 PA notified aa5 16:54 PA notified of decreased BP aa5 NIH Stroke Scale Scores: 12:43 NIHSS Score: 0 cp 12:49 NIHSS Score: 1 ss 12:49 NIHSS Score: 1 ss ED Course: 12:18 Patient arrived in ED. as 12:25 Merritt Garzon PA is PHCP. cp 12:25 Merritt Gorman MD is Attending Physician. cp 12:27 Panfilo Flores LVN is Primary Nurse. em 12:38 Triage completed. sv 12:40 CT Stroke Brain w/o Contrast In Process Unspecified. EDMS 12:40 Inserted saline lock: 22 gauge in left forearm, using aseptic technique. Blood ss collected. Patient maintains SpO2 saturation greater than 95% on room air. 12:49 Patient has correct armband on for positive identification. Bed in low position. Call ss light in reach. Side rails up X 1. monitoring tech on. Pulse ox on. NIBP on. Warm blanket given. 12:56 Stroke CXR 1 View In Process Unspecified. EDMS 15:36 CT Head Brain wo Cont In Process Unspecified. EDMS 16:21 Ultrasound completed. Patient tolerated well. sg3 16:24 US Carotid Artery Bilateral In Process Unspecified. EDMS 16:30 Claudio cath inserted, using sterile technique, 16 Fr., by wi, balloon inflated, to aa5 gravity drainage, urine specimen collected. 17:30 Patient transferred, IV remains in place. aa5 17:30 No provider procedures requiring assistance completed. aa5 Administered Medications: 13:42 Drug: cloNIDine 0.2 mg Route: PO; em 14:51 Follow up: Response: No adverse reaction; Blood pressure is lowered em 14:04 Drug: NS 0.9% 250 ml Route: IV; Rate: bolus; Site: left forearm; em 14:50 Follow up: IV Status: Completed infusion; IV Intake: 250ml em 14:51 Drug: NS 0.9% 500 ml Route: IV; Rate: 100 ml/hr; Site: right forearm; em 15:07 Drug: Potassium Effervescent Tablet 50 mEq Route: PO; em 15:56 Follow up: Response: Other; pt was drinking medication prior to sz em 15:32 Drug: Ativan 0.5 mg Route: IVP; Site: right antecubital; ss 15:40 Drug: Keppra 1000 mg Route: IV; Rate: calculated rate; Site: left forearm; aa5 15:55 Follow up: IV Status: Completed infusion; IV Intake: 100ml aa5 15:50 Drug: foLIC Acid 1 mg Route: IVPB; Site: left forearm; aa5 15:52 Drug: NS 0.9% 250 ml Route: IV; Rate: bolus; Site: left forearm; aa5 16:20 Follow up: IV Status: Completed infusion; IV Intake: 250ml aa5 16:02 Not Given (Physician Discretion): Metoprolol 5 mg IVP every 5 minutes; Hold for SBP < aa5 100 or HR < 60. x3 16:54 Drug: NS 0.9% 250 ml Route: IV; Rate: bolus; Site: left forearm; ss 17:11 Follow up: IV Status: Completed infusion; IV Intake: 250ml aa5 17:00 Drug: NS 0.9% 500 ml Route: IV; Rate: bolus; Site: left forearm; aa5 Point of Care Testing: Blood Glucose: 12:37 Blood Glucose: 168 mg/dL; em Ranges: Intake: 14:50 IV: 250ml; Total: 250ml. em 15:55 IV: 100ml; Total: 350ml. aa5 16:20 IV: 250ml; Total: 600ml. aa5 17:11 IV: 250ml; Total: 850ml. aa5 Output: 17:20 Urine: 500ml (Claudio); Total: 500ml. aa5 Outcome: 16:48 ER care complete, transfer ordered by . cp 17:35 Transferred by ground EMS to [facility], Transfer form completed. aa5 X-rays sent w/ patient. Note: Report given to [facility] 17:35 Condition: stable 17:35 Discharge instructions given to family, Instructed on the need for transfer, Demonstrated understanding of instructions. 17:44 Patient left the ED. aa5 NIH Stroke Scale - NIH Stroke Score Date: 05/27/2019 Time: 12:43 Total Score = 0 1a. Level of Consciousness (LOC) - 0(Alert) 1b. Level of Consciousness (LOC) (Year \\T\\ Age) - 0(Both) 1c. LOC Commands (Open \\T\\ Closes Eyes/Shirt Turner) - 0(Both) 2. Best Gaze (Lateral Gaze Paresis) - 0(Normal) 3. Visual Field Loss - 0(No visual loss) 4. Facial Palsy - 0(Normal) 5a. Left Arm: Motor (10-second hold) - 0(No drift) 5b. Right Arm: Motor (10-second hold) - 0(No drift) 6a. Left Leg: Motor (5-second hold - always test supine) - 0(No drift) 6b. Right Leg: Motor (5-second hold - always test supine) - 0(No drift) 7. Limb Ataxia (finger/nose \\T\\ heel/booth - test with eyes open) - 0(Absent) 8. Sensory Loss (pinprick arms/legs/face) - 0(Normal) 9. Best Language: Aphasia (description/naming/reading) - 0(No aphasia) 10. Dysarthria (speech clarity - read or repeat words) - 0(Normal) 11. Extinction and Inattention (visual/tactile/auditory/spatial/personal) - 0(No abnormality) Initials: NIH Stroke Scale - NIH Stroke Score Date: 05/27/2019 Time: 12:49 Total Score = 1 1a. Level of Consciousness (LOC) - 0(Alert) 1b. Level of Consciousness (LOC) (Year \\T\\ Age) - 0(Both) 1c. LOC Commands (Open \\T\\ Closes Eyes/Shirt Turner) - 0(Both) 2. Best Gaze (Lateral Gaze Paresis) - 0(Normal) 3. Visual Field Loss - 0(No visual loss) 4. Facial Palsy - 0(Normal) 5a. Left Arm: Motor (10-second hold) - 0(No drift) 5b. Right Arm: Motor (10-second hold) - 0(No drift) 6a. Left Leg: Motor (5-second hold - always test supine) - 0(No drift) 6b. Right Leg: Motor (5-second hold - always test supine) - 0(No drift) 7. Limb Ataxia (finger/nose \\T\\ heel/booth - test with eyes open) - 0(Absent) 8. Sensory Loss (pinprick arms/legs/face) - 0(Normal) 9. Best Language: Aphasia (description/naming/reading) - 0(No aphasia) 10. Dysarthria (speech clarity - read or repeat words) - 1(Mild to Moderate) 11. Extinction and Inattention (visual/tactile/auditory/spatial/personal) - 0(No abnormality) Initials: ss NIH Stroke Scale - NIH Stroke Score Date: 05/27/2019 Time: 12:49 Total Score = 1 1a. Level of Consciousness (LOC) - 0(Alert) 1b. Level of Consciousness (LOC) (Year \\T\\ Age) - 0(Both) 1c. LOC Commands (Open \\T\\ Closes Eyes/Shirt Turner) - 0(Both) 2. Best Gaze (Lateral Gaze Paresis) - 0(Normal) 3. Visual Field Loss - 0(No visual loss) 4. Facial Palsy - 0(Normal) 5a. Left Arm: Motor (10-second hold) - 0(No drift) 5b. Right Arm: Motor (10-second hold) - 0(No drift) 6a. Left Leg: Motor (5-second hold - always test supine) - 0(No drift) 6b. Right Leg: Motor (5-second hold - always test supine) - 0(No drift) 7. Limb Ataxia (finger/nose \\T\\ heel/booth - test with eyes open) - 0(Absent) 8. Sensory Loss (pinprick arms/legs/face) - 0(Normal) 9. Best Language: Aphasia (description/naming/reading) - 0(No aphasia) 10. Dysarthria (speech clarity - read or repeat words) - 1(Mild to Moderate) 11. Extinction and Inattention (visual/tactile/auditory/spatial/personal) - 0(No abnormality) Initials: Signatures: Dispatcher [employer] Anastacia Briseno RN RN Panfilo Flores, CHARGE ACCOUNT CLERK CHARGE ACCOUNT CLERK Deidra Ortiz Audri, RN RN aa5 Michelle Lea RN RN Merritt Garzon PA PA cp Godinez, Sarah sg3 Corrections: (The following items were deleted from the chart) 15:31 12:23 Presenting complaint: Child states: her sister went to see her tomorrow sv and noticed she was a little spaced out but got back to her baseline. Daughter stated today she called her around 0800 and her voice was "different or a little slurred"; when she got to her house around 0830 pt was fine and asked her to get her a sweet tea. Daughter came back around 1145 and noticed she was not her normal and unable to get out of her chair, her brothers had to get her into the car. sv 15:48 15:18 Reassessment: seizure like activity noted that lasted about 30-60 em seconds, provider at bedside, placed on NRB mask at 15 LPM, repeat EKG, snoring respirations noted, pt transferred to repeat head CT, charge nurse notified em 16:01 15:42 BP 211 / 109; Pulse 111bpm; Resp 18bpm; Spontaneous; Pulse Ox 100% 2 lpm aa5 Nasal Cannula; Temp 97.5F Temporal; aa5 16:06 15:59 BP 150 / 79; Pulse 88bpm; Resp 16bpm; Spontaneous; Pulse Ox 100% 2 lpm aa5 Nasal Cannula; PA notified ; aa5
--- NOTE | 2019-05-27 16:50 | EDPHYS ---
Physician Documentation [facility] – [place], [place] Name: Zonia Spencer Age: 83 yrs Sex: Female : 1935 Arrival Date: 05/27/2019 Time: 12:18 Bed 3 Private MD: Merritt Grady HPI: 05/27 12:44 This 83 yrs old Female presents to ER via Wheelchair with complaints of cp Weakness, Dizziness. 12:44 The patient's problem is reported as weakness, in the right lower extremity, in the cp left lower extremity. 12:44 Onset: The symptoms/episode began/occurred this morning. Duration: The episode is cp continuous. Associated signs and symptoms: Pertinent positives: dizziness, Pertinent negatives: abdominal pain, chest pain, headache, numbness, palpitations, vomiting. Patient's baseline: Neuro: alert but confused, Motor: no deficits, Ambulation: walks with assist only, uses walker, Speech: normal, The patient has a previous history of CVA, TIA. Historical: - Allergies: 12:39 No Known Allergies; sv - Home Meds: 12:39 alendronate 70 mg Oral tab 1 tab once wkly [Active]; pravastatin 20 mg Oral tab 1 tab sv once daily [Active]; folic acid 1 mg Oral tab 1 tab once daily [Active]; Exelon 9.5 mg/24 hr transdermal pt24 1 patch once daily [Active]; Lisinopril Oral [Active]; carvedilol 25 mg Oral tab 1 tab 2 times per day [Active]; bupropion HCl 100 mg Oral TbER 1 tab once daily [Active]; aspirin 81 mg Oral TbEC 2 tabs once daily [Active]; Fish Oil 1,000 mg Oral cap twice a day [Active]; multivitamin Oral tab daily [Active]; Vitamin B-12 1,000 mcg Oral tab daily [Active]; - PMHx: 12:39 Dementia; High Cholesterol; Hypertension; Osteoporosis; TIA; sv - PSHx: 12:39 Gastric Bypass; Cholecystectomy; catartact surg bilaterally; eye surg; sv - Immunization history:: Adult Immunizations up to date. - Social history:: Smoking status: Patient/guardian denies using tobacco. - Ebola Screening: : Patient denies exposure to infectious person Patient denies travel to an Ebola-affected area in the 21 days before illness onset. ROS: 12:45 Constitutional: Negative for body aches, chills, fever, poor PO intake. cp 12:45 Eyes: Negative for injury, pain, redness, and discharge. cp 12:45 ENT: Negative for drainage from ear(s), ear pain, sore throat, difficulty swallowing, difficulty handling secretions. 12:45 Cardiovascular: Negative for chest pain, edema, palpitations. 12:45 Respiratory: Negative for cough, shortness of breath, wheezing. 12:45 Abdomen/GI: Negative for abdominal pain, nausea, vomiting, and diarrhea. 12:45 Skin: Negative for cellulitis, rash. 12:45 Neuro: Positive for weakness, of the right leg and left leg, Negative for altered mental status, dizziness, headache, loss of consciousness, syncope. 12:45 All other systems are negative. Exam: 12:45 Radiologist reports: no acute findings cp 12:50 Constitutional: The patient appears in no acute distress, alert, awake, cp non-diaphoretic, non-toxic, well developed, well nourished. 12:50 Head/Face: Normocephalic, atraumatic. cp 12:50 Eyes: Periorbital structures: appear normal, Pupils: equal, round, and reactive to cp light and accomodation, Extraocular movements: intact throughout, Conjunctiva: normal, no exudate, no injection, Sclera: no appreciated abnormality, Lids and lashes: appear normal, bilaterally. 12:50 ENT: External ear(s): are unremarkable, Ear canal(s): are normal, clear, TM's: bulging, is not appreciated, bilaterally, dullness, bilaterally, erythema, is not appreciated, bilaterally, Nose: is normal, Mouth: Lips: moist, Oral mucosa: pink and intact, moist, Posterior pharynx: is normal, airway is patent, no erythema, no exudate. 12:50 Neck: ROM/movement: is normal, is supple, without pain, no range of motions limitations, no meningismus, no nuchal rigidity. 12:50 Chest/axilla: Inspection: normal, Palpation: is normal, no crepitus, no tenderness. 12:50 Cardiovascular: Rate: normal, Rhythm: regular, Pulses: Pulses are 2+ in right radial artery and left radial artery. Edema: is not appreciated, JVD: is not appreciated. 12:50 Respiratory: the patient does not display signs of respiratory distress, Respirations: normal, no use of accessory muscles, no retractions, no splinting, no tachypnea, labored breathing, is not present, Breath sounds: are clear throughout, no decreased breath sounds, no stridor, no wheezing. 12:50 Abdomen/GI: Inspection: abdomen appears normal, Palpation: abdomen is soft and non-tender, in all quadrants. 12:50 Back: pain, is absent, ROM is normal. 12:50 Skin: cellulitis, is not appreciated, no rash present. 12:50 Neuro: Orientation: no acute changes, per family, Mentation: no acute changes, per family, Cerebellar function: Romberg testing is negative, normal finger to nose testing, heel to booth testing is normal, Motor: moves all fours, strength is normal, Sensation: no obvious gross deficits. 12:52 ECG was reviewed by the Attending Physician. cp Vital Signs: 12:37 BP 208 / 99; Pulse 91; Resp 16; Pulse Ox 99% on R/A; Pain 0/10; em 13:03 BP 198 / 97; Pulse 86; Resp 16; Pulse Ox 98% on R/A; Pain 0/10; em 13:49 BP 182 / 82; Pulse 76; Resp 16; Pulse Ox 100% on R/A; Pain 0/10; em 14:30 BP 122 / 70; Pulse 69; Resp 20; Pulse Ox 97% on R/A; em 15:00 BP 113 / 67; Pulse 68; Resp 16; Pulse Ox 99% on R/A; Pain 0/10; em 15:42 BP 211 / 109; Pulse 111; Resp 18 S; Temp 97.5(TE); Pulse Ox 100% on 2 lpm NC; aa5 15:50 BP 215 / 108; Pulse 108; Resp 16 S; Pulse Ox 100% on 2 lpm NC; aa5 15:59 BP 151 / 87; Pulse 88; Resp 16 S; Pulse Ox 100% on 2 lpm NC; aa5 16:06 BP 150 / 79; Pulse 89; Resp 16 S; Pulse Ox 100% on 2 lpm NC; aa5 16:15 BP 130 / 67; Pulse 82; Resp 16 S; Pulse Ox 100% on 2 lpm NC; aa5 16:20 BP 111 / 62; Pulse 74; Resp 16 S; Pulse Ox 100% on 2 lpm NC; aa5 16:30 BP 134 / 74; Pulse 75; Resp 14 S; Pulse Ox 100% on 2 lpm NC; aa5 16:40 BP 106 / 60; Pulse 69; Resp 16 S; Pulse Ox 100% on 2 lpm NC; aa5 16:54 BP 91 / 50; Pulse 75; ss 16:54 aa5 16:58 BP 87 / 47; Pulse 64; Resp 16 S; Pulse Ox 100% on 2 lpm NC; aa5 17:04 BP 84 / 48; Pulse 62; Resp 14 S; Pulse Ox 100% on 2 lpm NC; aa5 17:10 BP 153 / 86; Pulse 69; Resp 18 S; Pulse Ox 100% on 2 lpm NC; aa5 17:30 BP 132 / 62; Pulse 69; Resp 16 S; Temp 97.3(TE); Pulse Ox 100% on 2 lpm NC; aa5 15:42 PA notified aa5 15:59 PA notified aa5 16:54 PA notified of decreased BP aa5 NIH Stroke Scale Scores: 12:43 NIHSS Score: 0 cp 12:49 NIHSS Score: 1 ss 12:49 NIHSS Score: 1 ss MDM: 05/26 12:50 ED course: Patient is not a candidate for tpa as symptoms consist of both lower cp extremity weakness and is NIH scale is 0. 05/27 12:27 Patient medically screened. iker 16:35 Data reviewed: vital signs, nurses notes, lab test result(s), EKG, radiologic studies, cp CT scan, plain films. Test interpretation: by ED physician or midlevel provider: ECG, plain radiologic studies. Response to treatment: the patient's symptoms have markedly improved after treatment. Physician consultation: DR Douglas Harkins, hospitalist \T\[facility], will accept patient as transfer. 05/27 12:34 Order name: CPK; Complete Time: 13:21 cp 05/27 12:34 Order name: Ckmb; Complete Time: 13:21 cp 05/27 13:21 Interpretation: Abnormal: CKMB 5.2. cp 05/27 12:34 Order name: Hepatic Function; Complete Time: 13:21 cp 05/27 12:34 Order name: Magnesium; Complete Time: 13:21 cp 05/27 12:34 Order name: Basic Metabolic Panel; Complete Time: 13:21 cp 05/27 13:22 Interpretation: Normal except: K 3.3; GLUC 151; GFR 69. cp 05/27 12:34 Order name: CBC with Diff; Complete Time: 13:21 05/27 12:34 Order name: Protime (+inr); Complete Time: 13:21 cp 05/27 12:34 Order name: Ptt, Activated; Complete Time: 13:21 cp 05/27 12:34 Order name: CT Stroke Brain w/o Contrast; Complete Time: 14:10 cp 05/27 12:34 Order name: Stroke CXR 1 View; Complete Time: 13:21 05/27 14:19 Order name: Glucose, Ancillary Testing; Complete Time: 14:48 EDMS 05/27 17:01 Order name: Urine Dipstick--Ancillary (enter results) 05/27 17:04 Order name: Urine Dipstick-Ancillary EDMS 05/27 12:34 Order name: EKG; Complete Time: 12:38 05/27 12:34 Order name: Accucheck; Complete Time: 12:49 05/27 12:34 Order name: Cardiac monitoring; Complete Time: 12:49 05/27 15:08 Order name: US Carotid Artery Bilateral cp 05/27 15:16 Order name: CT Head Brain wo Cont; Complete Time: 15:51 05/27 12:34 Order name: EKG - Nurse/Tech; Complete Time: 12:49 05/27 12:34 Order name: IV Saline Lock; Complete Time: 12:49 05/27 12:34 Order name: Labs collected and sent; Complete Time: 12:49 cp 05/27 12:34 Order name: NPO; Complete Time: 12:49 05/27 12:34 Order name: O2 Per Protocol; Complete Time: 12:49 05/27 12:34 Order name: O2 Sat Monitoring; Complete Time: 12:49 05/27 12:34 Order name: Stroke Swallow Screen; Complete Time: 16:05 05/27 12:34 Order name: Urine Dipstick-Ancillary (obtain specimen); Complete Time: 17:14 05/27 15:36 Order name: Vital Signs: please update to include temp; Complete Time: 15:49 cp 05/27 15:38 Order name: Shanon; Complete Time: 16:33 cp EC:52 Rate is 84 beats/min. Rhythm is regular. [place] interval is normal. QRS interval is cp prolonged at 130 msec. QT interval is normal. Interpreted by me. Reviewed by me. Administered Medications: 13:42 Drug: cloNIDine 0.2 mg Route: PO; em 14:51 Follow up: Response: No adverse reaction; Blood pressure is lowered em 14:04 Drug: NS 0.9% 250 ml Route: IV; Rate: bolus; Site: left forearm; em 14:50 Follow up: IV Status: Completed infusion; IV Intake: 250ml em 14:51 Drug: NS 0.9% 500 ml Route: IV; Rate: 100 ml/hr; Site: right forearm; em 15:07 Drug: Potassium Effervescent Tablet 50 mEq Route: PO; em 15:56 Follow up: Response: Other; pt was drinking medication prior to sz em 15:32 Drug: Ativan 0.5 mg Route: IVP; Site: right antecubital; ss 15:40 Drug: Keppra 1000 mg Route: IV; Rate: calculated rate; Site: left forearm; aa5 15:55 Follow up: IV Status: Completed infusion; IV Intake: 100ml aa5 15:50 Drug: foLIC Acid 1 mg Route: IVPB; Site: left forearm; aa5 15:52 Drug: NS 0.9% 250 ml Route: IV; Rate: bolus; Site: left forearm; aa5 16:20 Follow up: IV Status: Completed infusion; IV Intake: 250ml aa5 16:02 Not Given (Physician Discretion): Metoprolol 5 mg IVP every 5 minutes; Hold for SBP < aa5 100 or HR < 60. x3 16:54 Drug: NS 0.9% 250 ml Route: IV; Rate: bolus; Site: left forearm; ss 17:11 Follow up: IV Status: Completed infusion; IV Intake: 250ml aa5 17:00 Drug: NS 0.9% 500 ml Route: IV; Rate: bolus; Site: left forearm; aa5 Point of Care Testing: Blood Glucose: 12:37 Blood Glucose: 168 mg/dL; em Ranges: Critical Glucose Levels:Adult <50 mg/dl or >400 mg/dl <40 mg/dl or >180 mg/dl Disposition: 05/28 07:24 Co-signature as Attending Physician, Merritt Gorman MD I agree with the assessment and iker plan of care. Disposition: 05/27/19 16:[address] [facility]. Diagnosis are Seizure, Weakness - legs. - Reason for transfer: Higher level of care. - Accepting physician is DR Douglas Harkins. - Condition is Stable. - Problem is new. - Symptoms have improved. NIH Stroke Scale - NIH Stroke Score Date: 05/27/2019 Time: 12:43 Total Score = 0 1a. Level of Consciousness (LOC) - 0(Alert) 1b. Level of Consciousness (LOC) (Year \T\ Age) - 0(Both) 1c. LOC Commands (Open \T\ Closes Eyes/Supervisor Asphalt Paving) - 0(Both) 2. Best Gaze (Lateral Gaze Paresis) - 0(Normal) 3. Visual Field Loss - 0(No visual loss) 4. Facial Palsy - 0(Normal) 5a. Left Arm: Motor (10-second hold) - 0(No drift) 5b. Right Arm: Motor (10-second hold) - 0(No drift) 6a. Left Leg: Motor (5-second hold - always test supine) - 0(No drift) 6b. Right Leg: Motor (5-second hold - always test supine) - 0(No drift) 7. Limb Ataxia (finger/nose \T\ heel/booth - test with eyes open) - 0(Absent) 8. Sensory Loss (pinprick arms/legs/face) - 0(Normal) 9. Best Language: Aphasia (description/naming/reading) - 0(No aphasia) 10. Dysarthria (speech clarity - read or repeat words) - 0(Normal) 11. Extinction and Inattention (visual/tactile/auditory/spatial/personal) - 0(No abnormality) Initials: cp NIH Stroke Scale - NIH Stroke Score Date: 05/27/2019 Time: 12:49 Total Score = 1 1a. Level of Consciousness (LOC) - 0(Alert) 1b. Level of Consciousness (LOC) (Year \T\ Age) - 0(Both) 1c. LOC Commands (Open \T\ Closes Eyes/Supervisor Asphalt Paving) - 0(Both) 2. Best Gaze (Lateral Gaze Paresis) - 0(Normal) 3. Visual Field Loss - 0(No visual loss) 4. Facial Palsy - 0(Normal) 5a. Left Arm: Motor (10-second hold) - 0(No drift) 5b. Right Arm: Motor (10-second hold) - 0(No drift) 6a. Left Leg: Motor (5-second hold - always test supine) - 0(No drift) 6b. Right Leg: Motor (5-second hold - always test supine) - 0(No drift) 7. Limb Ataxia (finger/nose \T\ heel/booth - test with eyes open) - 0(Absent) 8. Sensory Loss (pinprick arms/legs/face) - 0(Normal) 9. Best Language: Aphasia (description/naming/reading) - 0(No aphasia) 10. Dysarthria (speech clarity - read or repeat words) - 1(Mild to Moderate) 11. Extinction and Inattention (visual/tactile/auditory/spatial/personal) - 0(No abnormality) Initials: NIH Stroke Scale - NIH Stroke Score Date: 05/27/2019 Time: 12:49 Total Score = 1 1a. Level of Consciousness (LOC) - 0(Alert) 1b. Level of Consciousness (LOC) (Year \T\ Age) - 0(Both) 1c. LOC Commands (Open \T\ Closes Eyes/Supervisor Asphalt Paving) - 0(Both) 2. Best Gaze (Lateral Gaze Paresis) - 0(Normal) 3. Visual Field Loss - 0(No visual loss) 4. Facial Palsy - 0(Normal) 5a. Left Arm: Motor (10-second hold) - 0(No drift) 5b. Right Arm: Motor (10-second hold) - 0(No drift) 6a. Left Leg: Motor (5-second hold - always test supine) - 0(No drift) 6b. Right Leg: Motor (5-second hold - always test supine) - 0(No drift) 7. Limb Ataxia (finger/nose \T\ heel/booth - test with eyes open) - 0(Absent) 8. Sensory Loss (pinprick arms/legs/face) - 0(Normal) 9. Best Language: Aphasia (description/naming/reading) - 0(No aphasia) 10. Dysarthria (speech clarity - read or repeat words) - 1(Mild to Moderate) 11. Extinction and Inattention (visual/tactile/auditory/spatial/personal) - 0(No abnormality) Initials: Signatures: Dispatcher [employer] Anastacia Briseno RN RN Merritt Frye MD MD cha Munoz, Edgar, PANEL FLOW MACHINE OPERATOR PANEL FLOW MACHINE OPERATOR em Chayito Castelan RN RN aa5 Michelle Lea RN RN Merritt Lucio, TRISTEN PA cp Corrections: (The following items were deleted from the chart) 05/27 15:31 14:48 Misc. Order ordered. cp em 17:44 16:48 05/27/2019 16:[address] [facility]. aa5 Diagnosis is Seizure; Weakness - legs. Reason for transfer: Higher level of care. Accepting physician is DR Douglas Harkins. Condition is Stable. Problem is new. Symptoms have improved. cp
[2019-05-27 17:14] LABS: Urine Blood TRACE (NEG); Urine Glucose NEGATIVE (NEG); Urine Protein 1+ (NEG); Urine Specific Gravity 1.015 (1.005-1.030)
--- NOTE | 2019-05-27 19:33 | RAD REPORT ---
EXAM DESCRIPTION: - CP - 05/27/2019 4:22 pm CLINICAL HISTORY: Dizziness, acute stroke symptoms COMPARISON: None. TECHNIQUE: Real-time sonographic evaluation of both carotid systems was performed. Richardson scale and Do ppler interrogation were performed with waveform tracing bilaterally. FINDINGS: Normal high resistance waveforms are noted in both external carotid arteries. The common c arotid arteries and internal carotid arteries show normal low resistance waveforms. Mild calcified plaquing changes are present at each carotid bulb. Peak systolic and end diastolic monica ocity values and the ICA/CCA ratios are in the non-hemodynamically significant range. No dissection f indings. Antegrade flow seen in both vertebral arteries. Velocity values and ratios were recorded and are retained in the patient's imaging records. IMPRESSION: Mild calcified plaquing changes in each carotid bulb. No evidence of a hemodynamically significant stenosis.
--- NOTE | 2019-05-27 21:14 | EKG ---
Test Date: 2019-05-27 Test Time: 12:45:53 Hand Cloth Examiner: BEN MEASUREMENT RESULTS: Intervals: Rate: 84 TX: 138 QRSD: 130 QT: 442 QTc: 522 [place]: P: 64 TX: 138 QRS: -70 T: 24 INTERPRETIVE STATEMENTS: Normal sinus rhythm with sinus arrhythmia Left axis deviation Incomplete right bundle branch block Cannot rule out Septal infarct, age undetermined Abnormal ECG Compared to ECG 03/31/2018 14:27:32 Myocardial infarct finding still present Electronically Signed On 05-27-19 21:13:18 CDT by Pineda Mcwilliams
--- NOTE | 2019-05-28 07:41 | EKG ---
Test Date: 2019-05-27 Test Time: 15:15:34 [place] Worker: BEN MEASUREMENT RESULTS: Intervals: Rate: 113 MD: 140 QRSD: 124 QT: 374 QTc: 513 [place]: P: 66 MD: 140 QRS: -63 T: 52 INTERPRETIVE STATEMENTS: Sinus tachycardia Incomplete right bundle branch block Left anterior fascicular block Septal infarct, age undetermined Abnormal ECG Compared to ECG 05/27/2019 12:45:53 Sinus rhythm no longer present Sinus arrhythmia no longer present Myocardial infarct finding still present Electronically Signed On 05-28-19 07:40:19 CDT by Pineda Mcwilliams
== END 2019-05-27 17:44 | disposition short-term general hospital (02) ==
LOC: ER 12:17
DX: R56.9 Unspecified convulsions (principal); I10 Essential (primary) hypertension; E78.00 Pure hypercholesterolemia, unspecified; F03.90 Unspecified dementia, unspecified severity, without behavioral disturbance, psychotic disturbance, mood disturbance, and anxiety; Z79.82 Long term (current) use of aspirin; Z86.73 Personal history of transient ischemic attack (TIA), and cerebral infarction without residual deficits
CPT/HCPCS: 93005 ×2; 85025; 80048; 36415; 83735; 82550; 85610; 82962; 80076; 85730; 81003; 82553; 70450 ×2; 71045; 93880; 51702; 99285; J1953; J7030

== ENCOUNTER 2019-07-15 08:52 | Emergency (ER) | payer OTHER ==
--- OUTSIDE RECORDS SUMMARY | 2019-07-15 08:56 | XMS REPORT ---
:1935 [facility] [address] [place] [address] Dr. Kumar [address] [place] [id number] Care Team Providers Name Role Phone RAE DASHany Unavailable Unavailable Problems This patient has no known problems. Allergies, Adverse Reactions, Alerts This patient has no known allergies or adverse reactions. Medications This patient has no known medications. Results Test Description Test Time Test Comments Text Results Atomic Results Result Comments EEG AWAKE AND 2019-05-29 Reason for exam:->Episode DATE OF REPORT: DROWSY 14:23:00 of unresponsiveness. 05/29/2019NAME: Zonia MixonMRN: [id number] of : 4ACC: [id number]: [id number] time: 12:36 PMStop time: 13:00 PM ICD-10: R56.9 CPT Code: 05518 HISTORY: Zonia Mixon is a 83 y.o. female with history of HTN, stroke, dementia, who transferred after having a seizure-like episode (episode of unresponsiveness, after she had felt "wobbly" and was dragging her feet) at [facility]. Events reported to occur on average 3 times per month described as blank staring, followed by garbled speech MEDICATIONS THAT COULD AFFECT EEG: Ativan, Zofran, Wellbutrin TECHNICAL SUMMARY: This is a digital EEG recorded with 32 input channels on a [employer] system, reviewed with bipolar and referential montages using the modified combinatorial system nomenclature. DESCRIPTION OF RECORD: During the maximally alert state, a 9 to 9.5 Hz posterior dominant rhythm was seen that was symmetric, reactive to eye opening and well regulated. More anteriorly, low voltage frontocentral beta predominated. Drowsiness was characterized by alpha attenuation and increased frontocentral theta, vertex sharp transients. There were rareright anterior temporal (FT10) sharp waves noted during drowsiness. HV: Hyperventilation was not performed. PHOTIC STIMULATION: Photic stimulation was done from 1-33 Hz; no photic driving was seen; photoparoxysmal responses were absent. VIDEO EVENTS: none ELECTROCARDIOGRAM: EKG tracing reviewed, showing normal sinus rhythm IMPRESSION: Abnormal awake and drowsy EEG 1. Rare right anterior temporal (FT10) sharp waves CLINICAL CORRELATION: The presence of right temporal sharp waves indicate a risk for focal epilepsy. There were no electrographic seizures recorded. Gifty Chau MDNeurophysiology Fellow Johnathan Arellano MD Attending Neurophysiologist [facility] GLOBIN A1C 2019-05-28 10:12:00 Test Item Value Reference Range Comments HEMOGLOBIN A1C (BEAKER) (test lejw=902) 4.8 % 4.3-6.1 CBC W/PLT COUNT & AUTO [id number] 08:26:00 Test Item Value Reference Range Comments WHITE BLOOD CELL COUNT (BEAKER) (test nrql=546) 3.5 K/ L 3.5-10.5 RED BLOOD CELL COUNT (BEAKER) (test qdyc=846) 3.15 M/ L 3.93-5.22 HEMOGLOBIN (BEAKER) (test cwcl=101) 9.2 GM/DL 11.2-15.7 HEMATOCRIT (BEAKER) (test ttlg=270) 29.3 % 34.1-44.9 MEAN CORPUSCULAR VOLUME (BEAKER) (test zbbt=797) 93.0 fL 79.4-94.8 MEAN CORPUSCULAR HEMOGLOBIN (BEAKER) (test 29.2 pg 25.6-32.2 lrto=993) MEAN CORPUSCULAR HEMOGLOBIN CONC (BEAKER) (test 31.4 GM/DL 32.2-35.5 wzbm=846) RED CELL DISTRIBUTION WIDTH (BEAKER) (test 13.1 % 11.7-14.4 fgri=836) PLATELET COUNT (BEAKER) (test ydjz=139) 91 K/CU MM 150-450 MEAN PLATELET VOLUME (BEAKER) (test wwxf=463) 12.2 fL 9.4-12.3 NUCLEATED RED BLOOD CELLS (BEAKER) (test 0 /100 WBC 0-0 nhhr=369) NEUTROPHILS RELATIVE PERCENT (BEAKER) (test 56 % fzuk=361) LYMPHOCYTES RELATIVE PERCENT (BEAKER) (test 33 % sdnp=116) MONOCYTES RELATIVE PERCENT (BEAKER) (test 10 % kbvh=335) EOSINOPHILS RELATIVE PERCENT (BEAKER) (test 1 % zolu=461) BASOPHILS RELATIVE PERCENT (BEAKER) (test 0 % llds=067) NEUTROPHILS ABSOLUTE COUNT (BEAKER) (test 1.94 K/ L 1.56-6.13 hzja=967) LYMPHOCYTES ABSOLUTE COUNT (BEAKER) (test 1.13 K/ L 1.18-3.74 lcfe=674) MONOCYTES ABSOLUTE COUNT (BEAKER) (test kuih=515) 0.36 K/ L 0.24-0.36 EOSINOPHILS ABSOLUTE COUNT (BEAKER) (test 0.02 K/ L 0.04-0.36 yygg=818) BASOPHILS ABSOLUTE COUNT (BEAKER) (test dxhz=981) 0.01 K/ L 0.01-0.08 IMMATURE GRANULOCYTES-RELATIVE PERCENT (BEAKER) 0 % 0-1 (test meuw=5841) C-REACTIVE [id number] 06:38:00 Test Item Value Reference Range Comments C-REACTIVE PROTEIN (BEAKER) (test uqfv=442) 0.11 mg/dL 0.00-0.50 HEPATIC FUNCTION [id number] 06:37:00 Test Item Value Reference Range Comments TOTAL PROTEIN (BEAKER) (test udtl=855) 5.3 gm/dL 6.0-8.3 ALBUMIN (BEAKER) (test gyrq=3681) 3.2 g/dL 3.5-5.0 BILIRUBIN TOTAL (BEAKER) (test jsjp=356) 0.5 mg/dL 0.2-1.2 BILIRUBIN DIRECT (BEAKER) (test guhj=254) 0.2 mg/dL 0.1-0.5 ALKALINE PHOSPHATASE (BEAKER) (test mppf=343) 45 U/L 40-150 AST (SGOT) (BEAKER) (test dozf=074) 17 U/L 5-34 ALT (SGPT) (BEAKER) (test clfd=201) 9 U/L 6-55 BASIC METABOLIC [id number] 06:37:00 Test Item Value Reference Range Comments SODIUM (BEAKER) (test 140 meq/L 136-145 xcfb=504) POTASSIUM (BEAKER) (test 3.6 meq/L 3.5-5.1 ajjy=503) CHLORIDE (BEAKER) (test 110 meq/L 98-107 lgkr=943) CO2 (BEAKER) (test 25 meq/L 22-29 pvut=619) BLOOD UREA NITROGEN 10 mg/dL 7-21 (BEAKER) (test hdfd=945) CREATININE (BEAKER) (test 0.73 mg/dL 0.57-1.25 zlre=111) GLUCOSE RANDOM (BEAKER) 77 mg/dL 70-105 (test vpoo=209) CALCIUM (BEAKER) (test 8.1 mg/dL 8.4-10.2 odvr=679) EGFR (BEAKER) (test 76 mL/min/1.73 sq m ESTIMATED GFR IS NOT vzsm=1337) ACCURATE CREATININE CLEARANCE IN PREDICTING GLOMERULAR FILTRATION RATE. ESTIMATED GFR IS NOT APPLICABLE FOR DIALYSIS PATIENTS. TSH/FREE T4 IF [id number] 06:34:00 Test Item Value Reference Range Comments THYROID STIMULATING HORMONE (BEAKER) (test 1.83 uIU/mL 0.35-4.94 dycm=029) VITAMIN B12 AND [id number] 04:46:00 Test Item Value Reference Range Comments VITAMIN B12 (BEAKER) (test hiop=322) > pg/mL 213-816 FOLATE (BEAKER) (test ikia=191) 19.6 ng/mL >=7.0 MR, MRA, BRAIN, WITHOUT [id number] 02:18:00Reason for exam:-> Ischemic Stroke EvaluationFINAL REPORT MRA head and neck without contrast. CLINICAL HISTORY: Ischemic stroke evaluation. COMPARISON : None. TECHNIQUE: Two- and three-dimensional djek-ai-zdwvve MRA images of the intra- and extracranial carotid and vertebral arterial circulations were obtained, from which maximal intensity projection 3-D reconstructions were created. FINDINGS: MRA neck: There is no vesselocclusion or NASCET-quantifiable stenosis in the extracranial carotid or vertebral arterial circulations. Flow is antegrade in both vertebral arteries. MRA [place]: There is no vessel occlusion or flow-limiting stenosis in the intracranial carotid or vertebrobasilar arterial circulations. There is a 3.6 mm wide neck focal outpouching in the left cavernous ICA projecting superiorly and to theleft consistent with an aneurysm. IMPRESSION: MRA neck: No vessel occlusion or hemodynamically significant stenosis by NASCET criteria. MRA head: No vessel occlusion or flow-limiting stenosis. 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 Discussed with Dr. Montgomery of neurology at 2:15 AM 05/28/2019 and Signed: Shalonda Reece Verified Date/Time: 05/28/2019 02:18:00 MR, MRA, NECK, WITHOUT IV [id number] 02:18:00Reason for exam:->Ischemic Stroke EvaluationFINAL REPORT MRA head and neck without contrast. CLINICAL HISTORY: Ischemic stroke evaluation. COMPARISON: None. TECHNIQUE: Two- and three-dimensional qrgs-cs-toxtwo MRA images of the intra- and extracranial carotid and vertebral arterial circulations were obtained, from which maximal intensity projection 3-D reconstructions were created. FINDINGS: MRA neck: There is no vesselocclusion or NASCET-quantifiable stenosis in the extracranial carotid or vertebral arterial circulations. Flow is antegrade in both vertebral arteries. MRA [place]: There is no vessel occlusion or flow-limiting stenosis in the intracranial carotid or vertebrobasilar arterial circulations. There is a 3.6 mm wide neck focal outpouching in the left cavernous ICA projecting superiorly and to theleft consistent with an aneurysm. IMPRESSION: MRA neck: No vessel occlusion or hemodynamically significant stenosis by NASCET criteria. MRA head: No vessel occlusion or flow-limiting stenosis. 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 Discussed with Dr. Montgomery of neurology at 2:15 AM 05/28/2019 and Signed: Shalonda Recee Verified Date/Time: 05/28/2019 02:18:00 MR, BRAIN, WITHOUT [id number] 02:09:00Reason for exam:->Ischemic Stroke EvaluationFINAL REPORT Exam: MRI brain without contrast. Comparison: None. Clinical indication: Ischemic Stroke Evaluation. Stroke vs TIA Technique : Multiplanar multi sequential MR imaging of the brain was performed without the administration of intravenous contrast. Findings: There davie punctate focus of restricted diffusion in the right postcentral gyrus consistent with an acute infarct. There are severe white matter microvascular ischemic changes. There are chronic right cerebellar infarcts. There is a punctate focus of susceptibility artifact in the left anterior frontal cortexcompatible with remote microhemorrhage. There is generalized cerebral and cerebellar parenchymal atrophy. There is no acute intracranial hemorrhage, intracranial mass, mass effect, extra-axial collection, hydrocephalus or herniation. The skull base flow-voids are seen in keeping with their patency. There is mild paranasal sinus mucosal thickening. The mastoid air cells are clear. There are bilateral lens replacements. The sella and parasellar regions are unremarkable. The craniocervical junctionis normal. Impression:Punctate acute infarct in the right postcentral gyrus.Severe white matter microvascular ischemic changes. Chronic right cerebellar infarcts.No acute intracranial hemorrhage or mass effect. Findings discussed with Dr. Montgomery of neurology at 2:07 AM 05/28/2019. Signed: Shalonda Reece MDReport Verified Date/Time: 05/28/2019 02:09:16 LIPID [id number] 00:06:00 Test Item Value Reference Range Comments TRIGLYCERIDES (BEAKER) (test eoek=954) 49 mg/dL CHOLESTEROL (BEAKER) (test omls=068) 129 mg/dL HDL CHOLESTEROL (BEAKER) (test zxkq=842) 52 mg/dL LDL CHOLESTEROL CALCULATED (Lighting Science GroupAKER) (test 67 mg/dL ybkg=219) Triglyceride Reference Range: Low Risk <150 Borderline 150- 199 High Risk 200-499 Very High Risk >=500Cholesterol Reference Range: Low Risk <200 Borderline 200-239 High Risk > 240HDL Cholesterol Reference Range: Low Risk >=60 High Risk <40LDL Cholesterol Reference Range: Optimal <100 Near Optimal 100-129 Borderline 130-159 High 160-189 Very High >=190URINALYSIS WITH MICROSCOPIC IF [id number] 00:01:00 Test Item Value Reference Range Comments COLOR (BEAKER) (test hkac=558) Colorless CLARITY (BEAKER) (test ctrn=157) Clear SPECIFIC GRAVITY UA (BEAKER) (test ybri=786) 1.004 1.001-1.035 PH UA (BEAKER) (test iifr=478) 7.0 5.0-8.0 PROTEIN UA (BEAKER) (test fzgh=222) Negative Negative GLUCOSE UA (BEAKER) (test wpvn=384) Negative Negative KETONES UA (BEAKER) (test kqzv=638) Negative Negative BILIRUBIN UA (BEAKER) (test eesy=846) Negative Negative BLOOD UA (BEAKER) (test lgjo=014) Negative Negative NITRITE UA (BEAKER) (test mhjk=244) Negative Negative LEUKOCYTE ESTERASE UA (BEAKER) (test tzzp=018) Negative Negative UROBILINOGEN UA (BEAKER) (test pxiw=063) 0.2 mg/dL 0.2-1.0 SOURCE(BEAKER) (test qmto=9030) CBC W/PLT COUNT & AUTO [id number] 23:49:00 Test Item Value Reference Range Comments WHITE BLOOD CELL COUNT (BEAKER) (test uols=506) 4.7 K/ L 3.5-10.5 RED BLOOD CELL COUNT (BEAKER) (test uznh=630) 3.57 M/ L 3.93-5.22 HEMOGLOBIN (BEAKER) (test lujk=220) 10.5 GM/DL 11.2-15.7 HEMATOCRIT (BEAKER) (test derr=899) 32.0 % 34.1-44.9 MEAN CORPUSCULAR VOLUME (BEAKER) (test ecqb=981) 89.6 fL 79.4-94.8 MEAN CORPUSCULAR HEMOGLOBIN (BEAKER) (test 29.4 pg 25.6-32.2 ohtu=432) MEAN CORPUSCULAR HEMOGLOBIN CONC (BEAKER) (test 32.8 GM/DL 32.2-35.5 zwdl=558) RED CELL DISTRIBUTION WIDTH (BEAKER) (test 13.0 % 11.7-14.4 gpqf=823) PLATELET COUNT (BEAKER) (test apsp=570) 103 K/CU MM 150-450 MEAN PLATELET VOLUME (BEAKER) (test ltxc=942) 12.7 fL 9.4-12.3 NUCLEATED RED BLOOD CELLS (BEAKER) (test 0 /100 WBC 0-0 elak=000) NEUTROPHILS RELATIVE PERCENT (BEAKER) (test 58 % ccjg=001) LYMPHOCYTES RELATIVE PERCENT (BEAKER) (test 30 % oroj=416) MONOCYTES RELATIVE PERCENT (BEAKER) (test 11 % nwun=975) EOSINOPHILS RELATIVE PERCENT (BEAKER) (test 0 % iugi=851) BASOPHILS RELATIVE PERCENT (BEAKER) (test 0 % cjnb=685) NEUTROPHILS ABSOLUTE COUNT (BEAKER) (test 2.70 K/ L 1.56-6.13 wvio=467) LYMPHOCYTES ABSOLUTE COUNT (BEAKER) (test 1.41 K/ L 1.18-3.74 kask=733) MONOCYTES ABSOLUTE COUNT (BEAKER) (test 0.51 K/ L 0.24-0.36 rwsn=601) EOSINOPHILS ABSOLUTE COUNT (BEAKER) (test 0.02 K/ L 0.04-0.36 duun=995) BASOPHILS ABSOLUTE COUNT (BEAKER) (test 0.01 K/ L 0.01-0.08 tdhb=931) IMMATURE GRANULOCYTES-RELATIVE PERCENT (BEAKER) 0 % 0-1 (test teml=3401)
--- OUTSIDE RECORDS SUMMARY | 2019-07-15 08:56 | XMS REPORT | Summary of Care ---
:1935 Author Organization [facility] [place] [address] Care Team Providers Name Role Phone Unavailable Primary Care Provider Unavailable Reason for Visit Reason Comments Other [facility] F/u Seizure's , TIA Encounter Details Date Type Department Care Team Description [facility] Neurology [place], DO Seizure's , TIA) [address] [facility] [address] [facility] 9th Floor, [address] [id number] Allergies No Known Allergiesdocumented as of this encounter (statuses as of 06/21/2019) Medications Medication Sig Dispensed Refills Start Date End Date Status [place]-3 Fatty Acids Take by mouth. 0 Active (FISH OIL BURP-LESS OR) aspirin 81 MG tablet Take 162 mg by 0 Active mouth daily. folic acid (FOLVITE) Take 1 mg by 0 Active 1 MG tablet mouth daily. pravastatin Take 20 mg by 0 Active (PRAVACHOL) 20 MG mouth daily. tablet rivastigmine 4.6 APPLY 1 PATCH 0 05/18/2019 Active MG/24HR PT24 TOPICALLY EVERY 24 HOURS levetiracetam Take 1 Tab by 60 Tab 5 06/21/2019 Active (KEPPRA) 500 MG mouth two times tablet daily. B Complex Vitamins Take by mouth. 0 Discontinued (B COMPLEX 1 OR) 9 Cyanocobalamin Take by mouth. 0 Discontinued (VITAMIN B 12 OR) 9 buPROPion Take 100 mg by 0 Discontinued (WELLBUTRIN, ZYBAN) mouth two times 9 100 MG SR tablet daily. rivastigmine Take 4.5 mg by 0 Discontinued (EXELON) 4.5 MG mouth two times [address] 1 Drop 1 Bottle 2 05/04/2016 Discontinued (DUREZOL) 0.05 % into the left 9 ophthalmic emulsion eye 3 times daily. levetiracetam Take 250 mg by 0 05/29/2019 Discontinued (KEPPRA) 250 MG mouth. 9 tablet documented as of this encounter (statuses as of 06/21/2019) Active Problems No known active problemsdocumented as of this encounter (statuses as of 2018) Social History Tobacco Use Types Packs/Day Years Used Date Former Smoker Smokeless Tobacco: Former User Comments: stopped 3 yrs ago Alcohol Use Drinks/Week oz/Week Comments Not Currently Sex Assigned at Date Recorded Not on file Job Start Date Occupation Industry Not on file Not on file Not on file Travel History Travel Start Travel End No recent travel history available. documented as of this encounter Last Filed Vital Signs Vital Sign Reading Time Taken Comments Blood Pressure 180/88 06/21/2019 9:59 AM CDT Pulse 68 06/21/2019 9:59 AM CDT Temperature - - Respiratory Rate - - Oxygen Saturation - - Inhaled Oxygen Concentration - - Weight 64.4 kg (142 lb) 06/21/2019 9:59 AM CDT Height 160 cm (5' 3") 06/21/2019 9:59 AM CDT Body Mass Index 25.15 06/21/2019 9:59 AM CDT documented in this encounter Progress Notes Natalya Gorman, - 06/21/2019 11:00 AM CDT [facility] Neurology 06/21/2019 Patient: Ms. Zonia Spencer Date of : 1935 CHIEF COMPLAINT: Hospital follow up regarding seizure HISTORY OF PRESENT ILLNESS: Ms. Spencer is a 83 y.o. woman who presents for hospital follow up regarding seizure. Her symptoms started on May 27. She called her daughter and told her that she couldn't get out of her chair. Legs felt weak. This was around 10am. Her daughter states that she spoke to her earlier in the morningand sounded like she had a "thick tongue." She checked on her and she seemed fine. It was about anhour later that she called. Daughter called her and nephew to get her out. She was taken to the ED and was getting registered. When they handed her the clipboard to sign, she dropped the penand stared. She was sitting in a chair and staring. She was taken to the CT-head. When she got out of the CT scanner (45 minutes later), she had a seizure. Her head turned to the left and her left arm flexed. Her left hand was holding a styrofoam cup and crushed it with her hand. Daughter was taken out of the room , so no one knows first hand how long it lasted. Daughter saw her about 20 minutes later. She was transferred to [facility] in the [facility]. Daughter states that she has been having similar spells since 2016. She has had about 10 "spells" total. These "spells" were episodesof staring without motor symptoms, but sometimes with fidgeting of the hands. These would last for about 3 minutes, followed by confusion and mumbling. It would take 5-6 minutes before she was back to normal. She would be exhausted afterwards. During hospitalization, she was started on keppra 250mg BID. Since discharge, she has had a total of 3 short starting spell episodes. One was witnessed by home health care. The patient never notices when she has them, cannot remember any of these episodes. The latest one occurred when she was stepping out of the car about 1 week ago. She is not experiencing any side effects from keppra. She is still weak in the legs. Daughter states that since the beginning of April , she would have getin a cart after long-term through shopping with her daughter ( after about 20 minutes). PAST MEDICAL HISTORY: 1. Arthritis 2. Elevated cholesterol 3. Hypertension 4. History of cataract surgery (bilateral) 5. History of cholecystectomy 6. History of gastric restriction surgery 7. History of arm surgery 8. Dementia MEDICATIONS: Outpatient Encounter Medications as of 06/21/2019 Medication Sig Dispense Refill aspirin 81 MG tablet Take 162 mg by mouth daily. [DISCONTINUED] B Complex Vitamins (B COMPLEX 1 OR) Take by mouth. [DISCONTINUED] buPROPion (WELLBUTRIN, ZYBAN) 100 MG SR tablet Take 100 mg by mouth two times daily. [DISCONTINUED] Cyanocobalamin (VITAMIN B 12 OR) Take by mouth. [DISCONTINUED] difluprednate (DUREZOL) 0.05 % ophthalmic emulsion Place 1 Drop into the left eye3 times daily. 1 Bottle 2 folic acid (FOLVITE) 1 MG tablet Take 1 mg by mouth daily. levetiracetam (KEPPRA) 250 MG tablet Take 250 mg by mouth. [place]-3 Fatty Acids (FISH OIL BURP-LESS OR) Take by mouth. pravastatin (PRAVACHOL) 20 MG tablet Take 20 mg by mouth daily. [DISCONTINUED] rivastigmine (EXELON) 4.5 MG capsule Take 4.5 mg by mouth two times daily. rivastigmine 4.6 MG/24HR PT24 APPLY 1 PATCH TOPICALLY EVERY 24 HOURS 0 No facility-administered encounter medications on file as of 06/21/2019. ALLERGIES: No Known Allergies. FAMILY HISTORY: family history includes Cancer in her sister; Hypertension in her sister; Stroke in her mother. SOCIAL HISTORY: reports that she has quit smoking. She has quit using smokeless tobacco. She reports that she drank alcohol. She reports that she does not use drugs. She lives [place], [place] with her daughter and son-in-law. 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 REVIEW OF SYSTEMS: A 10-point review of systems was performed. All are unremarkable (negative) except as noted in the history of present illness section of this note. PHYSICAL EXAMINATION: Vital Signs: height is 5' 3" (1.6 m) and weight is 142 lb (64.4 kg). Her blood pressure is 180/88 and her pulse is 68. General: Awake, alert and in no acute distress. Eyes: Fundoscopic examination reveals sharp disc margins and normal retinal vasculature. Cardiovascular: Heart has a regular rate and rhythm without murmur. No carotid bruits. No peripheraledema. Neurological: Mental Status: Oriented to person, place, but not specific date (including year) . Recent and remote memory are poor. Normal attention span and concentration. Normal fund of knowledge. Language: Intact to comprehension, naming and repetition. Speech: No dysarthria. Cranial Nerves: II: Visual abreu are intact to confrontation. III, IV, : Pupils are equal, round and reactive to light. Extra-ocular muscles are intact. No nystagmus. No ptosis. V: Facial sensation intact and symmetrical. VII: Facial motor function intact and symmetrical. VIII: Hearing is intact to hard finger rub on the right only. IX: Palate elevates symmetrically. XI: Shoulder shrug strength 5/5. XII: Tongue is normal in strength and bulk. Motor: Normal tone. No atrophy. No abnormal movements or fasciculations. Strength (0-5 MRC scale): Muscle/Action Right Left Deltoid 5 5 Biceps 5 5 Triceps 5 5 Wrist extension 5 5 Wrist flexion 5 5 Finger extension 5 5 Finger flexion 5 5 FDP (D2) 5 5 FDP (D5) 5 5 FPL 5 5 APB 5 5 FDI 5 5 ADM 5 5 Hip flexion 5 5 Knee extension 5 5 Knee flexion 5 5 Ankle dorsiflexion 5 5 Ankle plantarflexion 5 5 Deep Tendon Reflexes (0-4 scale): Right Left Biceps 2 2 Brachioradialis 3 3 Triceps 2 2 Patellar 2 2 Achilles 2 2 Plantar Reflex: Downgoing bilaterally. Sensory: Vibratory sensation is absent at the MTP joints, fleeting at the ankles , 8 seconds at the knees. Coordination: Intact to [id number]. Gait: Mildly wide-based. Reviewed records: MRI-brain (04/2019) shows "Punctate acute infarct in the right postcentral gyrus. Severe white mattermicrovascular ischemic changes. Chronic right cerebellar infarcts. No acute intracranial hemorrhage or mass effect." MRA-head and neck (04/2019) shows "3.6 mm left cavernous ICA aneurysm for which neurosurgical and serial angiographic imaging follow-up is recommended." Hemoglobin A1C: 4.8 TSH: 1.83 HDL: 52 LDL: 67 B12: >2000 EEG (04/2019) shows "Rare right anterior temporal (FT10) sharp waves" IMPRESSION: Ms. Spencer is a 83 y.o. woman who presents for hospital follow up regarding seizure and acute ischemic stroke. The patient presented to [facility] in late April 2019 with trouble walking. She had an episode with description consistent with a right hemisphere origin partial motor seizure in the emergency department. MRI-brain showed a punctate ischemic stroke in the right postcentral gyrus. EEG showed right anterior temporal sharp waves. Daughter describes that the patient had been experiencing spells or episodes in which she would suddenly stare off and become unresponsive for up to 3 minutes. This would transition into fidgeting with her hands, confusion and exhaustion , with return to baseline after 5-6 minutes. She has had at least 10 similar episodes, always similar in phenotype. These are consistent with complex partial seizures. During hospitalization, she was started on keppra 250mg BID, but she has had a further 3 episodes (reportedly shorter in duration). Will increase keppra dose. Patient's stroke risk factors include hyperlipidemia ( well-controlled), hypertension (may need better control), and age. The patient exhibits mild symmetric hyperreflexia in the setting of normal strength and severe lower extremity sensory loss. This pattern can be seen in cervical central canal stenosis with spinal cord involvement. Discussed that this could be investigated further with MRI-C-spine, however, patient and daughter are not interested in workup that may lead to surgical treatment at this time (and unless there is significant worsening). 1. Complex partial seizures (usually staring, one episode consistent with tonic motor seizure involving neck turning to the left and flexion of left arm/hand) 2. Breakthrough seizure 3. Ischemic stroke 4. Hypertension 5. Dementia - poorly defined, no detailed evaluation 6. Left cavernous ICA aneurysm 7. Gait dysfunction 8. Fatigability 9. Hyperreflexia RECOMMENDATIONS: 1. Increase keppra from 250mg BID to 500mg BID 2. Continue aspirin 81mg daily for stroke prophylaxis 3. Continue statin for stroke prevention 4. CTA-head and neck (around August/September to follow up on ICA aneurysm) 5. MOCA screen on follow up 6. Follow up with PCP regarding better hypertension control 7. Return to clinic for follow up visit in 2-3 months Thank you again for the opportunity to participate in the care of Ms. Zonia Spencer. Sincerely, Natalya Gorman D.O. Vehicle Care Specialist, Neurology [facility] I spent a total of 44 minutes with the patient, of which 25 minutes were spent in counseling and coordination of care regarding etiology of symptoms, further testing, medication management, monitoring,and follow up. documented in this encounter Plan of Treatment Date Type Specialty Care Team Description 10/02/2019 Office Visit Neurology Natalya Gorman DO [address] [facility] [id number] [place] [address] [phone] Health Maintenance Due Date Last Done Comments MEDICARE AWV 1935 TETANUS SHOT (ADULT) 1949 BMI FOLLOW UP PLAN 1952 FALL SCREEN 1999 OSTEOPOROSIS SCREENING 1999 PNEUMOVAX >=65 (PPSV23) 1999 PREVNAR >=65 (PCV13) 1999 FLU VACCINE > 6 MONTHS 05/31/2019 documented as of this encounter Results Not on filedocumented in this encounter Visit Diagnoses Diagnosis Partial symptomatic epilepsy with complex partial seizures, intractable, without status epilepticus - Primary Breakthrough seizure Unspecified epilepsy with intractable epilepsy Acute ischemic stroke Unspecified cerebral artery occlusion with cerebral infarction Essential hypertension Unspecified essential hypertension Dementia without behavioral disturbance, unspecified dementia type Carotid aneurysm, 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
--- OUTSIDE RECORDS SUMMARY | 2019-07-15 08:56 | XMS REPORT | Clinical Summary ---
:1935 Author Organization [facility] Address [address] [place] [address] Care Team Providers Name Role Phone Joe Primary Care Provider Allergies Active Allergy Reactions Severity Noted Date Comments Tree Nut Swelling 05/11/2016 Only with "mixed nuts". Medications Medication Sig Dispensed Refills Start Date End Date Status aspirin 81 MG EC Take 81 mg by 0 Active tablet mouth daily. folic acid (FOLVITE) Take 1 mg by 0 Active 1 MG tablet mouth daily. omega-3 fatty Take 2 capsules 0 Active acids-vitamin E by mouth daily. 1,000 mg Cap pravastatin Take 20 mg by 0 Active (PRAVACHOL) 20 MG mouth daily. tablet RIVASTIGMINE (EXELON Place 1 patch 0 Active TD) onto the skin daily. carvedilol (COREG) Take 6.25 mg by 0 Active 6.25 MG tablet mouth 2 (two) times daily with breakfast and dinner. alendronate Take 70 mg by 0 Active (FOSAMAX) 70 MG mouth every 7 tablet days Take in the morning with a full glass of water, on an empty stomach, and do not take anything else by mouth or lie down for the next 30 min. . lisinopril Take 10 mg by 0 Active (PRINIVIL,ZESTRIL) mouth daily. 10 MG tabletIndications: hypertension b complex vitamins Take 1 tablet 0 Discontinued tablet by mouth daily. 9 buPROPion Take 100 mg by 0 Discontinued (WELLBUTRIN SR) 100 mouth daily. 9 MG 12 hr tablet cyanocobalamin 1000 Take 1,000 mcg 0 Discontinued MCG tablet by mouth daily. 9 difluprednate 0.05 % Apply to 0 Discontinued Drop eye(s). 9 bromfenac 0.07 % Apply to 0 Discontinued Drop eye(s). [address] 1 drop 0 Discontinued sulf-trimethoprim into the left 9 10,000 unit- 1 mg/mL eye. Drop ergocalciferol Take 50,000 0 Discontinued (ERGOCALCIFEROL) Units by mouth 9 50,000 unit capsule once a week. levETIRAcetam Take 1 tablet 60 tablet 0 05/29/2019 (KEPPRA) 250 MG (250 mg total) 9 tablet by mouth 2 (two) times daily for 30 days. 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 Last Filed Vital Signs Vital Sign Reading Time Taken Blood Pressure 182/77 05/29/2019 3:00 PM CDT Pulse 75 05/29/2019 3:00 PM CDT Temperature 36.5 C (97.7 F) 05/29/2019 3:00 PM CDT Respiratory Rate 18 05/29/2019 3:00 PM CDT Oxygen Saturation 96% 05/29/2019 3:00 PM CDT Inhaled Oxygen Concentration - - Weight 59 kg (130 lb 1.6 oz) 05/27/2019 7:00 PM CDT Height 160 cm (5' 3") 05/27/2019 7:00 PM CDT Body Mass Index 23.05 05/27/2019 7:00 PM CDT Plan of Treatment Not on file Procedures Procedure Name Priority Date/Time Associated Comments Diagnosis REPORT OF PROCEDURE - 05/31/2019 11:51 ENDOSCOPY SCAN AM CDT RHYTHM STRIP - SCAN 05/31/2019 11:51 AM CDT EEG AWAKE AND DROWSY Routine 05/29/2019 1:00 Results for this PM CDT procedure are in the results section. ECHOCARDIOGRAM REPORT - 05/28/2019 9:22 SCAN PM CDT 2D ECHO W/ DOPPLER Routine 05/28/2019 12:39 Results for this (CW/PW/COLOR) PM CDT procedure are in the results section. CBC W/PLT COUNT & AUTO Routine 05/28/2019 8:16 Results for this DIFFERENTIAL AM CDT procedure are in the results section. CBC W/PLT COUNT & AUTO Routine 05/28/2019 8:16 Results for this DIFFERENTIAL AM CDT procedure are in the results section. HEPATIC FUNCTION PANEL Routine 05/28/2019 5:11 Results for this AM CDT procedure are in the results section. C-REACTIVE PROTEIN Routine 05/28/2019 5:11 Results for this AM CDT procedure are in the results section. HEMOGLOBIN A1C Routine 05/28/2019 5:11 Results for this AM CDT procedure are in the results section. TSH/FREE T4 IF Routine 05/28/2019 5:11 Results for this INDICATED AM CDT procedure are in the results section. BASIC METABOLIC PANEL Routine 05/28/2019 5:11 Results for this (7) AM CDT procedure are in the results section. MR BRAIN WITHOUT IV Routine 05/28/2019 1:51 Results for this CONTRAST AM CDT procedure are in the results section. MR MRA NECK WITHOUT IV Routine 05/28/2019 1:51 Results for this CONTRAST AM CDT procedure are in the results section. MR MRA HEAD WITHOUT Routine 05/28/2019 1:51 Results for this CONTRAST AM CDT procedure are in the results section. CBC W/PLT COUNT & AUTO Routine 05/27/2019 11:35 Results for this DIFFERENTIAL PM CDT procedure are in the results section. URINALYSIS WITH Routine 05/27/2019 11:35 Results for this MICROSCOPIC IF PM CDT procedure are in INDICATED the results section. LIPID PANEL Routine 05/27/2019 11:35 Results for this PM CDT procedure are in the results section. VITAMIN B12 AND FOLATE Routine 05/27/2019 11:35 Results for this PM CDT procedure are in the results section. CBC W/PLT COUNT & AUTO Routine 05/27/2019 11:35 Results for this DIFFERENTIAL PM CDT procedure are in the results section. after 07/14/2018 Results EKG-SCANNED (05/31/2019 11:51 AM CDT) Narrative Performed At RHYTHM STRIP - SCAN (05/31/2019 11:51 AM CDT) Narrative Performed At EEG AWAKE AND DROWSY (05/29/2019 1:00 PM CDT) Specimen Narrative Performed At DATE OF REPORT:05/29/2019 GE RIS NAME: Enoc Mixon Date of : 1935 ACC: [id number] Start time: 12:36 PM Stop time: 13:00 PM ICD-10: R56.9 CPT Code: 07461 HISTORY: Enoc Mixon is a 83 y.o. female with [...] recorded with 32 input channels on a CrownPeak system,reviewed with bipolar and referential montages using the modified combinatorial system nomenclature. DESCRIPTION OF RECORD: During the maximally alert state, a 9 to 9.5 Hz posterior dominant rhythm was seen that was symmetric, reactive to eye opening and well regulated.More anteriorly, low voltage frontocentral beta predominated.Drowsiness was characterized by alpha attenuation and increased [...] were no electrographic seizures recorded. Gifty Chau MD Neurophysiology Fellow Yuliet Arellano MD Attending Neurophysiologist [facility] Procedure Note Interface, External Ris In - 05/29/2019 2:23 PM CDT DATE OF REPORT: 05/29/2019 NAME: Enoc Mixon Date of : 1935 ACC: [id number] Start time: 12:36 PM Stop time: 13:00 PM ICD-10: R56.9 CPT Code: 39354 HISTORY: Enoc Mixon is a 83 y.o. female with [...] recorded with 32 input channels on a CrownPeak system, reviewed with bipolar and referential montages [...] were no electrographic seizures recorded. Gifty Chau MD Neurophysiology Fellow Yuliet Arellano MD Attending Neurophysiologist [facility] Performing Organization Address City/State/Zipcode Phone Number [facility] ECHOCARDIOGRAM REPORT - SCAN (05/28/2019 9:22 PM CDT) Narrative Performed At 2D Echo W/Doppler(CW/PW/Color) (05/28/2019 12:39 PM CDT) Ejection Fraction [facility] Specimen Narrative Performed At Transthoracic Echocardiography Report (TTE) [facility] Demographics Patient Name Haja MIXON of Study 05/28/2019 MEJIA [id number] GenderFemale Visit Number [id number] Unknown [id number] Room Number 2251 Number Date 1935eferring Macario Aviles, Physician Age83 year(s)Policy Adviser CORDELL Meeks, RDCS,RVT,RDMS Randy Denson, Radha Arriaga MD RDCS Physician Procedure Type of Study TTE procedure:2DECHO W DOPPLER(CW/PW/COLOR) (Routine) Indications:Suspected cardiac source of emboli. Clinical History HGB 9.2 HCT 29.3 % HTN, HLD, DEMENTIA Contrast Medium: Bubble Study. Height: 63 inches Weight: 58.97 kg (130 lbs) BSA: 1.61 m^2 BMI: 23.03 kg/m^2 HR: 66 bpm BP: 124/58 mmHg Summary IV saline contrast injection was negative for a PFO (patent foramen ovale) at rest and post Valsalva . The left ventricle is chamber size (by vol index) is normal (female - LVED vol - 29-61ml/m2). Brvmblpr-nw-bhmwbp concentric LV hypertrophy. All of the LV segments are hyperkinetic . Estimated LVEF by qualitative assessment is increased (>70%) . Grade 1 diastolic dysfunction (impaired relaxation and low-normal LA pressure). Increased (cardiac index > 4.0 L/min/m2) cardiac output state at rest is noted. Estimated peak systolic PA pressure is 30-35 mmHg . Previous Study No prior studies available for comparison. Signature Findings Technical Quality: Technically adequate exam. Left Ventricle The left ventricle is chamber size (by vol index) is normal (female - LVED vol - 29-61ml/m2). Mo gfvkph-li-xrwxse concentric LV hypertrophy. All of the LV segments are hyperkinetic . Global LV sy stolic function hyperdynamic . Estimated LVEF by qu alitative assessment is increased (>70%) . Grade 1 diastolic dysfunction (impaired relaxation and lo w-normal LA pressure). In creased (cardiac index > 4.0 L/min/m2) cardiac ou tput state at rest is noted. Left AtriumLA size is moderately enlarged (42-48 ml/m2) . Right VentricleThe right ventricular chamber size and systolic fu nction are within normal limits. Right Atrium RA size is normal. Atrial SeptumIV saline contrast injection was negative for a PFO (p atent foramen ovale) at rest and post Valsalva . Aortic Valve Mild AoV cusp thickening. Mi ld aortic regurgitation. Mitral Valve Mild MV leaflet thickening. Mi ld mitral regurgitation. Tricuspid ValveTV structure is normal. Mi ld tricuspid regurgitation. Es timated peak systolic PA pressure is 30-35 mmHg . Pulmonic Valve Normal PV structure and function by limited views an d Doppler. AortaAortic root size (SInus of Valsalva diameter) is no rmal . PericardiumNo pericardial effusion is visualized. IVC/SVC/PA/PV/PleuralThe estimated RA pressure by IVC dynamics 5-10mmHg . Th e inferior vena cava size is normal . Th e inferior vena cava is adequately visualized. Chambers/Structures Left Atrium LA Volume: 71.45 ml LA Area: 22.33 cm^2 LA Vol. Index: 44 ml/m^2 Left Ventricle LVIDd: 3.63 cm LVEDV:97.45 ml LVIDs: 1.98 cm LV Septum Diastolic: 1.77 cm LV PW Diastolic: 1.48 cm LV FS: 45.5 % LVEDV Samuel's:61.35 ml LVEDVI: 38 ml/m^2 LVOT Diameter: 1.91 cm Aorta Ao Root S of Harriet.: 2.72 cm Doppler/Quantitative Measurements Mitral Valve MV Peak E-Wave: 0.85 m/sMV Peak A-Wave: 1.06 m/s E/A Ratio: 0.81 Peak Gradient: 2.92 mmHg Deceleration Time: 260.1 msec MV Piero. Peak: Tissue Doppler E' Lateral Velocity: 0.07 m/s Aortic Valve Peak Velocity: 2.08 m/s Mean Velocity: 1.47 m/s Peak Gradient: 17.23 mmHg Mean Gradient: 9.85 mmHg AV Area (continuity): 2.98 cm^2 AV VTI: 44.25 cm AR P1/2t: 531.8 msecDecelerati on Time: 1833.9 msec AV DVI: 1.04 LVOT Peak Velocity: 1.99 m/sPeak Gradient: 15.83 mmHg Mean Velocity: 1.51 m/sMean Gradient: 9.95 mmHg LVOT Diameter: 1.91 cm LVOT VTI: 46.06 cm LVOT Area: 2.87 cm^2 LVOT SV:131.9 ml LVOT CO: 8.71 l/minLVOT CI: 5.41 l/min/m^2 Tricuspid Valve TR Velocity: 2.53 m/s TR Gradient: 25.65 mmHg Procedure Note Interface, External Ris In - 05/28/2019 2:08 PM CDT Transthoracic Echocardiography Report (TTE) Demographics Patient Name ENOC MIXON [facility] Female Visit Number [id number] Race Unknown Room Number 2251 Number Date of 1935 Referring Macario Pineda Aviles, Physician Age 83 year(s) Policy Adviser CORDELL Meeks, RDCS,RVT,RDMS Ruby Developer Jada Denson, Interpreting Umberto Arriaga MD RDCS Physician Procedure Type of Study TTE procedure:2DECHO W DOPPLER(CW/PW/COLOR) (Routine) Indications:Suspected cardiac source of emboli. Clinical History HGB 9.2 HCT 29.3 % HTN, HLD, DEMENTIA Contrast Medium: Bubble Study. Height: 63 inches Weight: 58.97 kg (130 lbs) BSA: 1.61 m^2 BMI: 23.03 kg/m^2 HR: 66 bpm BP: 124/58 mmHg Summary IV saline contrast injection was negative for a PFO (patent foramen ovale) at rest and post Valsalva . The left ventricle is chamber size (by vol index) is normal (female - LVED vol - 29-61ml/m2). Oyolnlkm-le-crwyzr concentric LV hypertrophy. All of the LV segments are hyperkinetic . Estimated LVEF by qualitative assessment is increased (>70%) . Grade 1 diastolic dysfunction (impaired relaxation and low-normal LA pressure). Increased (cardiac index > 4.0 L/min/m2) cardiac output state at rest is noted. Estimated peak systolic PA pressure is 30-35 mmHg . Previous Study No prior studies available for comparison. Signature Findings Technical Quality: Technically adequate exam. Left Ventricle The left ventricle is chamber size (by vol index) is normal (female - LVED vol - 29-61ml/m2). Wqbqqzbb-xu-qjbqej concentric LV hypertrophy. All of the LV segments are hyperkinetic . Global LV systolic function hyperdynamic . Estimated LVEF by qualitative assessment is increased (>70%) . Grade 1 diastolic dysfunction (impaired relaxation and low-normal LA pressure). Increased (cardiac index > 4.0 L/min/m2) cardiac output state at rest is noted. Left Atrium LA size is moderately enlarged (42-48 ml/m2) . Right Ventricle The right ventricular chamber size and systolic function are within normal limits. Right Atrium RA size is normal. Atrial Septum IV saline contrast injection was negative for a PFO (patent foramen ovale) at rest and post Valsalva . Aortic Valve Mild AoV cusp thickening. Mild aortic regurgitation. Mitral Valve Mild MV leaflet thickening. Mild mitral regurgitation. Tricuspid Valve TV structure is normal. Mild tricuspid regurgitation. Estimated peak systolic PA pressure is 30-35 mmHg . Pulmonic Valve Normal PV structure and function by limited views and Doppler. Aorta Aortic root size (SInus of Valsalva diameter) is normal . Pericardium No pericardial effusion is visualized. IVC/SVC/PA/PV/Pleural The estimated RA pressure by IVC dynamics 5-10mmHg . The inferior vena cava size is normal . The inferior vena cava is adequately visualized. Chambers/Structures Left Atrium LA Volume: 71.45 ml LA Area: 22.33 cm^2 LA Vol. Index: 44 ml/m^2 Left Ventricle LVIDd: 3.63 cm LVEDV:97.45 ml LVIDs: 1.98 cm LV Septum Diastolic: 1.77 cm LV PW Diastolic: 1.48 cm LV FS: 45.5 % LVEDV Samuel's:61.35 ml LVEDVI: 38 ml/m^2 LVOT Diameter: 1.91 cm Aorta Ao Root S of Harriet.: 2.72 cm Doppler/Quantitative Measurements Mitral Valve MV Peak E-Wave: 0.85 m/s MV Peak A-Wave: 1.06 m/s E/A Ratio: 0.81 Peak Gradient: 2.92 mmHg Deceleration Time: 260.1 msec MV Piero. Peak: Tissue Doppler E' Lateral Velocity: 0.07 m/s Aortic Valve Peak Velocity: 2.08 m/s Mean Velocity: 1.47 m/s Peak Gradient: 17.23 mmHg Mean Gradient: 9.85 mmHg AV Area (continuity): 2.98 cm^2 AV VTI: 44.25 cm AR P1/2t: 531.8 msec Deceleration Time: 1833.9 msec AV DVI: 1.04 LVOT Peak Velocity: 1.99 m/s Peak Gradient: 15.83 mmHg Mean Velocity: 1.51 m/s Mean Gradient: 9.95 mmHg LVOT Diameter: 1.91 cm LVOT VTI: 46.06 cm LVOT Area: 2.87 cm^2 LVOT SV:131.9 ml LVOT CO: 8.71 l/min LVOT CI: 5.41 l/min/m^2 Tricuspid Valve TR Velocity: 2.53 m/s TR Gradient: 25.65 mmHg Performing Organization Address City/State/Zipcode Phone Number [facility] CBC with platelet count + automated diff (05/28/2019 8:16 AM CDT)Only the most recent of2 resultswithin the time period is included. WBC 3.5 3.5 - 10.5 K/L [facility] RBC 3.15 (L) 3.93 - 5.22 M/L [facility] Hemoglobin 9.2 (L) 11.2 - 15.7 GM/DL [facility] Hematocrit 29.3 (L) 34.1 - 44.9 % [facility] MCV 93.0 79.4 - 94.8 fL [facility] MCH 29.2 25.6 - 32.2 pg [facility] MCHC 31.4 (L) 32.2 - 35.5 GM/DL [facility] RDW 13.1 11.7 - 14.4 % [facility] Platelets 91 (L) 150 - 450 K/CU MM [facility] MPV 12.2 9.4 - 12.3 fL [facility] nRBC 0 0 - 0 /100 WBC [facility] % Neutros 56 % [facility] % Lymphs 33 % [facility] % Monos 10 % [facility] % Eos 1 % [facility] % Baso 0 % [facility] # Neutros 1.94 1.56 - 6.13 K/L [facility] # Lymphs 1.13 (L) 1.18 - 3.74 K/L [facility] # Monos 0.36 0.24 - 0.36 K/L [facility] # Eos 0.02 (L) 0.04 - 0.36 K/L [facility] # Baso 0.01 0.01 - 0.08 K/L [facility] Immature Granulocytes-Relative 0 0 - 1 % [facility] Specimen Blood Performing Organization Address City/[facility] Phone Number [address] [address] [phone] CENTER TSH/Free T4 If Indicated (05/28/2019 5:11 AM CDT) TSH 1.83 0.35 - 4.94 uIU/mL [facility] Specimen Blood Performing Organization Address [facility] Phone Number [address] [address] CENTER C-Reactive Protein (05/28/2019 5:11 AM CDT) CRP 0.11 0.00 - 0.50 mg/dL [facility] Specimen Blood Performing Organization Address City/[facility] Phone Number [address] [address] CENTER Hemoglobin A1c (05/28/2019 5:11 AM CDT) Hemoglobin A1C 4.8 4.3 - 6.1 % [facility] Specimen Blood Performing Organization Address City/[facility] Phone Number [address] [address] [place] Hepatic function panel (05/28/2019 5:11 AM CDT) Protein, Total 5.3 (L) 6.0 - 8.3 gm/dL [facility] Albumin 3.2 (L) 3.5 - 5.0 g/dL [facility] Total Bilirubin 0.5 0.2 - 1.2 mg/dL [facility] Bilirubin, Direct 0.2 0.1 - 0.5 mg/dL [facility] Alkaline Phosphatase 45 40 - 150 U/L [facility] AST 17 5 - 34 U/L [facility] ALT 9 6 - 55 U/L [facility] Specimen Blood Performing Organization Address City/[facility] Phone Number [facility] [address] [place] [address] [place] Basic Metabolic Panel (05/28/2019 5:11 AM CDT) Sodium 140 136 - 145 meq/L [facility] Potassium 3.6 3.5 - 5.1 meq/L [facility] Chloride 110 (H) 98 - 107 meq/L [facility] CO2 25 22 - 29 meq/L [facility] BUN 10 7 - 21 mg/dL [facility] Creatinine 0.73 0.57 - 1.25 mg/dL [facility] Glucose 77 70 - 105 mg/dL [facility] Calcium 8.1 (L) 8.4 - 10.2 mg/dL [facility] EGFR 76Comment: ESTIMATED GFR IS mL/min/1.[address] [facility] BCM NOT ACCURATE [facility] CLEARANCE IN PREDICTING GLOMERULAR FILTRATION RATE. ESTIMATED GFR IS NOT APPLICABLE FOR DIALYSIS PATIENTS. Specimen Blood Performing Organization Address City/State/Zipcode Phone Number [facility] [address] [place] [address] [phone] CENTER MR brain without IV contrast (05/28/2019 1:51 AM CDT) Specimen Narrative Performed At FINAL REPORT [facility] Exam: MRI brain without contrast. Comparison:None. Clinical indication: Ischemic Stroke Evaluation.Stroke vs TIA Technique: Multiplanar multi sequential MR imaging of the brain was performed without the administration of intravenous contrast. Findings: There is a punctate focus of restricted diffusion in the right postcentral gyrus consistent with an acute infarct. There are severe white matter microvascular ischemic changes. There are chronic right cerebellar infarcts.There is a punctate focus of susceptibility artifact in the left anterior frontal cortex compatible with remote microhemorrhage. There is generalized cerebral [...] and parasellar regions are unremarkable. The craniocervical junction is normal. Impression: Punctate acute infarct in the right postcentral gyrus. Severe white matter microvascular ischemic changes. Chronic right cerebellar infarcts. No acute intracranial hemorrhage or mass effect. Findings discussed with Dr. Montgomery of neurology at 2:07 AM 05/28/2019. Signed: Americo Reece MD Report Verified Date/Time:05/28/2019 02:09:16 Procedure Note Interface, External Ris In - 05/28/2019 2:11 AM CDT FINAL REPORT Exam: MRI brain without contrast. Comparison: None. Clinical indication: Ischemic Stroke Evaluation. Stroke vs TIA Technique: Multiplanar multi sequential MR imaging of the brain was performed without the administration of intravenous contrast. Findings: There is a punctate focus of restricted diffusion in the right postcentral gyrus consistent with an acute infarct. There are severe white matter microvascular ischemic changes. There are chronic right cerebellar infarcts. There is a punctate focus of susceptibility artifact in the left anterior frontal cortex compatible with remote microhemorrhage. There is generalized cerebral [...] and parasellar regions are unremarkable. The craniocervical junction is normal. Impression: Punctate acute infarct in the right postcentral gyrus. Severe white matter microvascular ischemic changes. Chronic right cerebellar infarcts. No acute intracranial hemorrhage or mass effect. Findings discussed with Dr. Montgomery of neurology at 2:07 AM 05/28/2019. Signed: Americo Reece MD Report Verified Date/Time: 05/28/2019 02:09:16 Performing Organization Address City/State/Zipcode Phone Number [facility] MRA neck without IV contrast (05/28/2019 1:51 AM CDT) Specimen Narrative Performed At FINAL REPORT [facility] MRA head and neck without contrast. CLINICAL HISTORY: Ischemic stroke evaluation. COMPARISON: None. TECHNIQUE: Two- and three-dimensional [id number] MRA images of the intra- and extracranial carotid and vertebral arterial circulations were obtained, from which maximal intensity projection 3-D reconstructions were created. FINDINGS: MRA neck: There is no vessel occlusion or NASCET-quantifiable stenosis in the extracranial carotid or vertebral arterial circulations. Flow is antegrade in both vertebral arteries. MRA [place]: There is no vessel occlusion or flow-limiting stenosis in the intracranial carotid or vertebrobasilar arterial circulations. There is a 3.6 mm wide neck focal outpouching in the left cavernous ICA projecting superiorly and to the left consistent with an aneurysm. IMPRESSION: MRA neck: No vessel occlusion or hemodynamically significant stenosis by NASCET criteria. MRA head: No vessel occlusion or flow-limiting stenosis. 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 Discussed with Dr. Montgomery of neurology at 2:15 AM 05/28/2019 and Signed: Americo Reece MD Report Verified Date/Time:05/28/2019 02:18:00 Procedure Note Interface, External Ris In - 05/28/2019 2:20 AM CDT FINAL REPORT MRA head and neck without contrast. CLINICAL HISTORY: Ischemic stroke evaluation. COMPARISON: None. TECHNIQUE: Two- and three-dimensional [id number] MRA images of the intra- and extracranial carotid and vertebral arterial circulations were obtained, from which maximal intensity projection 3-D reconstructions were created. FINDINGS: MRA neck: There is no vessel occlusion or NASCET-quantifiable stenosis in the extracranial carotid or vertebral arterial circulations. Flow is antegrade in both vertebral arteries. MRA [place]: There is no vessel occlusion or flow-limiting stenosis in the intracranial carotid or vertebrobasilar arterial circulations. There is a 3.6 mm wide neck focal outpouching in the left cavernous ICA projecting superiorly and to the left consistent with an aneurysm. IMPRESSION: MRA neck: No vessel occlusion or hemodynamically significant stenosis by NASCET criteria. MRA head: No vessel occlusion or flow-limiting stenosis. 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 Discussed with Dr. Montgomery of neurology at 2:15 AM 05/28/2019 and Signed: Americo Reece MD Report Verified Date/Time: 05/28/2019 02:18:00 Performing Organization Address City/State/Zipcode Phone Number [facility] MRA head without IV contrast (05/28/2019 1:51 AM CDT) Specimen Narrative Performed At FINAL REPORT [facility] MRA head and neck without contrast. CLINICAL HISTORY: Ischemic stroke evaluation. COMPARISON: None. TECHNIQUE: Two- and three-dimensional [id number] MRA images of the intra- and extracranial carotid and vertebral arterial circulations were obtained, from which maximal intensity projection 3-D reconstructions were created. FINDINGS: MRA neck: There is no vessel occlusion or NASCET-quantifiable stenosis in the extracranial carotid or vertebral arterial circulations. Flow is antegrade in both vertebral arteries. MRA [place]: There is no vessel occlusion or flow-limiting stenosis in the intracranial carotid or vertebrobasilar arterial circulations. There is a 3.6 mm wide neck focal outpouching in the left cavernous ICA projecting superiorly and to the left consistent with an aneurysm. IMPRESSION: MRA neck: No vessel occlusion or hemodynamically significant stenosis by NASCET criteria. MRA head: No vessel occlusion or flow-limiting stenosis. 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 Discussed with Dr. Montgomery of neurology at 2:15 AM 05/28/2019 and Signed: Americo Reece MD Report Verified Date/Time:05/28/2019 02:18:00 Procedure Note Interface, External Ris In - 05/28/2019 2:20 AM CDT FINAL REPORT MRA head and neck without contrast. CLINICAL HISTORY: Ischemic stroke evaluation. COMPARISON: None. TECHNIQUE: Two- and three-dimensional [id number] MRA images of the intra- and extracranial carotid and vertebral arterial circulations were obtained, from which maximal intensity projection 3-D reconstructions were created. FINDINGS: MRA neck: There is no vessel occlusion or NASCET-quantifiable stenosis in the extracranial carotid or vertebral arterial circulations. Flow is antegrade in both vertebral arteries. MRA [place]: There is no vessel occlusion or flow-limiting stenosis in the intracranial carotid or vertebrobasilar arterial circulations. There is a 3.6 mm wide neck focal outpouching in the left cavernous ICA projecting superiorly and to the left consistent with an aneurysm. IMPRESSION: MRA neck: No vessel occlusion or hemodynamically significant stenosis by NASCET criteria. MRA head: No vessel occlusion or flow-limiting stenosis. 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 Discussed with Dr. Montgomery of neurology at 2:15 AM 05/28/2019 and Signed: Americo Reece MD Report Verified Date/Time: 05/28/2019 02:18:00 Performing Organization Address City/State/Zipcode Phone Number [facility] Urinalysis with Microscopic If Indicated (05/27/2019 11:35 PM CDT) Color, UA Colorless [facility] Clarity, UA Clear [facility] Specific [place], UA 1.004 1.001 - 1.035 [facility] pH, UA 7.0 5.0 - 8.0 [facility] Protein, UA Negative Negative [facility] Glucose, UA Negative Negative [facility] Ketones, UA Negative Negative [facility] Bilirubin, UA Negative Negative [facility] Blood, UA Negative Negative [facility] Nitrite, UA Negative Negative [facility] Leukocytes, UA Negative Negative [facility] Urobilinogen, UA 0.2 0.2 - 1.0 mg/dL [facility] Specimen Source [facility] Specimen Urine Performing Organization Address City/[facility]/Zipcode Phone Number [facility] [address] [place] [address] [place] Vitamin B12 and Folate (05/27/2019 11:35 PM CDT) Vitamin B12 >2000 (H) 213 - 816 pg/mL [facility] Folate 19.6 >=7.0 ng/mL [facility] Specimen Blood Performing Organization Address City/[facility]/Zipcode Phone Number [facility] [address] [place] [address] [place] Lipid panel (05/27/2019 11:35 PM CDT) Triglycerides 49 mg/dL [facility] Cholesterol 129 mg/dL [facility] HDL 52 mg/dL [facility] LDL Calculated 67 mg/dL [facility] Specimen Blood Narrative Performed At Triglyceride Reference Range: [facility] Low Risk <150 [id number] High Risk 200-499 Very High Risk>=500 Cholesterol Reference Range: Low Risk <200 [id number] High Risk>240 HDL Cholesterol Reference Range: Low Risk >=60 High Risk <40 LDL Cholesterol Reference Range: Optimal<100 Near [id number] Very High >=190 Performing Organization Address City/State/Zipcode Phone Number [facility] [address] [place] [address] CENTER after 07/14/2018 Insurance Payer Benefit Plan / Group Subscriber ID Type Phone Address MEDICARE MEDICARE A B xxxxxxxxxxx Medicare (Home) [address] [place] [phone] Advance Directives Patient has advance care planning documents, and code status on file. For more information, please contact:[address] [phone] Code Status Date Activated Date Inactivated Comments DNR 05/27/2019 11:57 PM 05/29/2019 8:16 PM Code status limitations: RN or designee to place a purple wristband on patient ([facility] only) Code status limitations: Do NOT initiate Code Blue Code status limitations: Do NOT transfer to higher level of care Full Code 05/27/2019 8:17 PM 05/27/2019 11:56 PM This code status was determined by: Patient
[2019-07-15 09:42] LABS: Absolute Lymphocytes (CBC) 1.4 K/uL (0.7-4.9); Basophils % 0.6 % (0-1.3); Hematocrit 38.9 % (36.0-45.0); Lymphocytes % 19.5 % (15.3-44.8); MPV 11.3 fL (7.6-11.3); RBC Red Blood Cell Count 4.45 M/uL (3.86-4.86)
[2019-07-15 09:43] LABS: Protime INR 0.93
--- NOTE | 2019-07-15 09:54 | RAD REPORT ---
EXAM DESCRIPTION: CT - Head Brain Wo Cont - 07/15/2019 9:39 am CLINICAL HISTORY: Near syncope Headache, drowsiness COMPARISON: Head Brain Wo Cont dated 05/27/2019; Ct Stroke Brain Wo Cont dated 05/27/2019 TECHNIQUE: All CT scans are performed using dose optimization technique as appropriate and may inclu de automated exposure control or mA/KV adjustment according to patient size. FINDINGS: No intracranial hemorrhage, hydrocephalus or extra-axial fluid collection.Moderate general ized brain atrophy is present with moderate periventricular and deep white matter chronic microvascul ar ischemic changes.No areas of brain edema or evidence of midline shift. The paranasal sinuses and mastoids are clear. The calvarium is intact. IMPRESSION: No acute intracranial abnormality.
[2019-07-15 10:11] LABS: ALT/SGPT 28 U/L (12-78); AST/SGOT 25 U/L (15-37); Albumin 3.5 g/dL (3.4-5.0); Alkaline Phosphatase 77 U/L (45-117); BUN Blood Urea Nitrogen 14 mg/dL (7-18); Bicarbonate 30 mmol/L (21-32); Bilirubin Direct < 0.1 mg/dL (0-0.2); Bilirubin Total 0.3 mg/dL (0.2-1.0); Glucose Level 79 mg/dL (74-106); Magnesium 2.1 mg/dL (1.8-2.4); NT PRO-BNP 322 pg/mL (<450); Potassium 4.1 mmol/L (3.5-5.1); Sodium Level 142 mmol/L (136-145); Troponin (Emerg Dept Use Only) < 0.02 ng/mL (0.0-0.045)
--- NOTE | 2019-07-15 11:11 | ER ---
Nurse's Notes [facility] Name: Zonia Spencer Age: 83 yrs Sex: Female : 1935 Arrival Date: 07/15/2019 Time: 08:54 Bed 15 Private MD: Diagnosis: Syncope and collapse;Hypertensive heart disease Presentation: 07/15 09:09 Presenting complaint: Syncopal episode while standing in kitchen this morning. Daughter hb reports pt slowly sank to floor, appeared dazed for approx 2 minutes. Denies pain/dizziness at this time. Transition of care: patient was not received from another setting of care. Onset of symptoms was July 15, 2019. Risk Assessment: Do you want to hurt yourself or someone else? Patient reports no desire to harm self or others. Initial Sepsis Screen: Does the patient meet any 2 criteria? No. Patient's initial sepsis screen is negative. Does the patient have a suspected source of infection? No. Patient's initial sepsis screen is negative. Care prior to arrival: None. 09:09 Method Of Arrival: Wheelchair hb 09:09 Acuity: YAMILETH 3 hb Historical: - Allergies: : No Known Allergies; hb - Home Meds: : alendronate 70 mg Oral tab 1 tab once wkly [Active]; aspirin 81 mg Oral TbEC 2 tabs hb once daily [Active]; bupropion HCl 100 mg Oral TbER 1 tab once daily [Active]; carvedilol 25 mg Oral tab 1 tab 2 times per day [Active]; Exelon 9.5 mg/24 hr transdermal pt24 1 patch once daily [Active]; Fish Oil 1,000 mg Oral cap twice a day [Active]; folic acid 1 mg Oral tab 1 tab once daily [Active]; lisinopril Oral [Active]; multivitamin Oral tab daily [Active]; pravastatin 20 mg Oral tab 1 tab once daily [Active]; Vitamin B-12 1,000 mcg Oral tab daily [Active]; - PMHx: 09:09 Dementia; High Cholesterol; Hypertension; Osteoporosis; TIA; hb - PSHx: :09 Gastric Bypass; Cholecystectomy; catartact surg bilaterally; eye surg; hb - Immunization history:: Adult Immunizations up to date. - Social history:: Smoking status: Patient/guardian denies using tobacco. - Ebola Screening: : No symptoms or risks identified at this time. Screenin:09 Abuse screen: Denies threats or abuse. Denies injuries from another. Nutritional sv screening: No deficits noted. Tuberculosis screening: No symptoms or risk factors identified. Fall Risk None identified. Assessment: 09:25 General: Appears in no apparent distress. comfortable, well groomed, well developed, sv Behavior is calm, cooperative, appropriate for age. Pain: Denies pain. Neuro: Level of Consciousness is awake, alert, obeys commands, Oriented to person, place, time, situation, Moves all extremities. Full function Gait is steady, Speech is normal, Facial symmetry appears normal, Reports a syncopal episode. Cardiovascular: Patient's skin is warm and dry. Rhythm is sinus rhythm. Respiratory: Airway is patent Respiratory effort is even, unlabored, Respiratory pattern is regular, symmetrical. Derm: Skin is pink, warm \T\ dry. 10:30 Reassessment: Patient appears in no apparent distress at this time. No changes from sv previously documented assessment. Patient and/or family updated on plan of care and expected duration. Pain level reassessed. Patient is alert, oriented x 3, equal unlabored respirations, skin warm/dry/pink. 11:15 Reassessment: Dr. Mayer ordered 25 mg Lopressor PO then discharge. Pt will return for jl7 re-evaluation if symptoms worsen, pt and family verbalize understanding. Pain: Denies pain. Cardiovascular: Patient's skin is warm and dry. Respiratory: Airway is patent Respiratory effort is even, unlabored, Respiratory pattern is regular, symmetrical. Derm: Skin is pink, warm \T\ dry. Vital Signs: 09:07 BP 217 / 111; Pulse 64; Resp 16; Temp 97.1; Pulse Ox 100% on R/A; Weight 69.85 kg; hb Height 5 ft. 2 in. (157.48 cm); Pain 0/10; 09:15 BP 197 / 97; Pulse 68; Resp 16; Pulse Ox 98% ; sv 09:32 BP 152 / 112; Pulse 69; Resp 18; Pulse Ox 97% ; sv 10:12 BP 189 / 91; Pulse 65 MON; Resp 22; Pulse Ox 97% ; sv 10:46 BP 193 / 80; Pulse 67; Resp 21; Pulse Ox 97% ; sv 11:00 BP 202 / 90; Pulse 69; Resp 17 S; Pulse Ox 97% on R/A; Pain 0/10; jl7 09:07 Body Mass Index 28.17 (69.85 kg, 157.48 cm) hb 10:12 Sinus Rhythm sv ED Course: 08:54 Patient arrived in ED. rg4 08:58 Ryan Mayer MD is Attending Physician. kdr 08:58 Anastacia Balderas RN is Primary Nurse. sv 09:04 Anastacia Balderas RN is Primary Nurse. sv 09:08 Arm band placed on. hb 09:09 Patient has correct armband on for positive identification. Placed in gown. Bed in low sv position. Call light in reach. Side rails up X2. Adult w/ patient. campus monitor on. Pulse ox on. NIBP on. Door closed. Head of bed elevated. 09:11 Triage completed. hb 09:25 Initial lab(s) drawn, by me, sent to lab. Inserted saline lock: 22 gauge in right sv antecubital area, using aseptic technique. Blood collected. Flushed right antecubital with 5 ml normal saline. 09:40 CT completed. Patient tolerated procedure well. Patient moved back from CT. bq 10:13 CT Head Brain wo Cont Sent. sv 10:13 Basic Metabolic Panel Sent. sv 10:13 CBC with Diff Sent. sv 10:13 LFT's Sent. sv 10:13 Magnesium Sent. sv 10:13 NT PRO-BNP Sent. sv 10:13 PT-INR Sent. sv 10:13 Troponin (emerg Dept Use Only) Sent. sv 10:13 XRAY Chest (1 view) Sent. sv 11:31 No provider procedures requiring assistance completed. IV discontinued, intact, jl7 bleeding controlled, No redness/swelling at site. Pressure dressing applied. Administered Medications: 11:20 Drug: Lopressor 25 mg Route: PO; sv 11:28 Follow up: Response: Medication administered at discharge. jl7 Outcome: 11:10 Discharge ordered by . kdr 11:31 Discharged to home ambulatory, with family. jl7 11:31 Condition: stable 11:31 Discharge instructions given to patient, family, Instructed on discharge instructions, follow up and referral plans. Demonstrated understanding of instructions, follow-up care. 11:31 Patient left the ED. jl7 Signatures: Anastacia Balderas RN RN sv Ryan Mayer MD MD kdr Nahomy Mcmahon Heather, RN RN hb Brandie Bush4 Rocael Hurd RN RN jl7
--- NOTE | 2019-07-15 11:11 | EDPHYS ---
Physician Documentation [facility] Name: Zonia Spencer Age: 83 yrs Sex: Female : 1935 Arrival Date: 07/15/2019 Time: 08:54 Bed 15 Private MD: ED Physician Ryan Mayer HPI: 07/15 10:20 This 83 yrs old Female presents to ER via Wheelchair with complaints of kdr Passed Out Prior To Arrival, High Blood Pressure. 10:20 The patient has experienced syncope, became unresponsive, collapsed, The patient has kdr experienced near-syncope. Onset: The symptoms/episode began/occurred suddenly, just prior to arrival. Duration: This was a single episode, Few mintues. Context: the episode(s) was witnessed, by family, daughter, occurred at home, occurred while the patient was standing, Just prior to the episode the patient experienced no apparent symptoms. Associated injury: The patient did not suffer any apparent associated injury. Associated signs and symptoms: The patient has no apparent associated signs or symptoms. Current symptoms: Currently, the patient is not experiencing any symptoms. The patient has not experienced similar symptoms in the past. The patient has not recently seen a physician. Historical: - Allergies: : No Known Allergies; hb - Home Meds: 09: alendronate 70 mg Oral tab 1 tab once wkly [Active]; aspirin 81 mg Oral TbEC 2 tabs hb once daily [Active]; bupropion HCl 100 mg Oral TbER 1 tab once daily [Active]; carvedilol 25 mg Oral tab 1 tab 2 times per day [Active]; Exelon 9.5 mg/24 hr transdermal pt24 1 patch once daily [Active]; Fish Oil 1,000 mg Oral cap twice a day [Active]; folic acid 1 mg Oral tab 1 tab once daily [Active]; lisinopril Oral [Active]; multivitamin Oral tab daily [Active]; pravastatin 20 mg Oral tab 1 tab once daily [Active]; Vitamin B-12 1,000 mcg Oral tab daily [Active]; - PMHx: 09:09 Dementia; High Cholesterol; Hypertension; Osteoporosis; TIA; hb - PSHx: 09:09 Gastric Bypass; Cholecystectomy; catartact surg bilaterally; eye surg; hb - Immunization history:: Adult Immunizations up to date. - Social history:: Smoking status: Patient/guardian denies using tobacco. - Ebola Screening: : No symptoms or risks identified at this time. ROS: 10:20 Constitutional: Negative for fever, chills, and weight loss, Eyes: Negative for injury, kdr pain, redness, and discharge, ENT: Negative for injury, pain, and discharge, Neck: Negative for injury, pain, and swelling, Cardiovascular: Negative for chest pain, palpitations, and edema, Respiratory: Negative for shortness of breath, cough, wheezing, and pleuritic chest pain, Abdomen/GI: Negative for abdominal pain, nausea, vomiting, diarrhea, and constipation, Back: Negative for injury and pain, : Negative for injury, bleeding, discharge, and swelling, MS/Extremity: Negative for injury and deformity, Skin: Negative for injury, rash, and discoloration, Psych: Negative for depression, anxiety, suicide ideation, homicidal ideation, and hallucinations, Allergy/Immunology: Negative for hives, rash, and allergies, Endocrine: Negative for neck swelling, polydipsia, polyuria, polyphagia, and marked weight changes, Hematologic/Lymphatic: Negative for swollen nodes, abnormal bleeding, and unusual bruising. 10:20 Neuro: Positive for near syncope, weakness, Negative for altered mental status, dizziness, gait disturbance, headache, hearing loss, numbness, seizure activity, speech changes, syncope, near syncope, tinnitus, tremor, visual changes, acute changes. Exam: 10:20 Constitutional: This is a well developed, well nourished patient who is awake, alert, kdr and in no acute distress. Head/Face: Normocephalic, atraumatic. Eyes: Pupils equal round and reactive to light, extra-ocular motions intact. Lids and lashes normal. Conjunctiva and sclera are non-icteric and not injected. Cornea within normal limits. Periorbital areas with no swelling, redness, or edema. Neck: Trachea midline, no thyromegaly or masses palpated, and no cervical lymphadenopathy. Supple, full range of motion without nuchal rigidity, or vertebral point tenderness. No Meningismus. Chest/axilla: Normal chest wall appearance and motion. Nontender with no deformity. No lesions are appreciated. Cardiovascular: Regular rate and rhythm with a normal S1 and S2. No gallops, murmurs, or rubs. Normal PMI, no JVD. No pulse deficits. Respiratory: Lungs have equal breath sounds bilaterally, clear to auscultation and percussion. No rales, rhonchi or wheezes noted. No increased work of breathing, no retractions or nasal flaring. Abdomen/GI: Soft, non-tender, with normal bowel sounds. No distension or tympany. No guarding or rebound. No evidence of tenderness throughout. Back: No spinal tenderness. No costovertebral tenderness. Full range of motion. Skin: Warm, dry with normal turgor. Normal color with no rashes, no lesions, and no evidence of cellulitis. MS/ Extremity: Pulses equal, no cyanosis. Neurovascular intact. Full, normal range of motion. Neuro: Awake and alert, GCS 15, oriented to person, place, time, and situation. Cranial nerves II-XII grossly intact. Motor strength 5/5 in all extremities. Sensory grossly intact. Psych: Awake, alert, with orientation to person, place and time. Behavior, mood, and affect are within normal limits. Vital Signs: 09:07 BP 217 / 111; Pulse 64; Resp 16; Temp 97.1; Pulse Ox 100% on R/A; Weight 69.85 kg; hb Height 5 ft. 2 in. (157.48 cm); Pain 0/10; 09:15 BP 197 / 97; Pulse 68; Resp 16; Pulse Ox 98% ; sv 09:32 BP 152 / 112; Pulse 69; Resp 18; Pulse Ox 97% ; sv 10:12 BP 189 / 91; Pulse 65 MON; Resp 22; Pulse Ox 97% ; sv 10:46 BP 193 / 80; Pulse 67; Resp 21; Pulse Ox 97% ; sv 11:00 BP 202 / 90; Pulse 69; Resp 17 S; Pulse Ox 97% on R/A; Pain 0/10; jl7 09:07 Body Mass Index 28.17 (69.85 kg, 157.48 cm) hb 10:12 Sinus Rhythm sv MDM: 11:10 Patient medically screened. kdr 11:11 Data reviewed: vital signs, nurses notes. ED course: The patient was feeling better and kdr had no further c/o. Though she remained hypertensive, she had no s/s of end organ damage and had no sense of her HTN. The daughter was present and indicated they would follow-up with Anitha Durbin/Randi. 07/15 09:08 Order name: Basic Metabolic Panel kdr 07/15 09:08 Order name: CBC with Diff kdr 07/15 09:08 Order name: LFT's kdr 07/15 09:08 Order name: Magnesium kdr 07/15 09:08 Order name: NT PRO-BNP kdr 07/15 09:08 Order name: PT-INR kdr 07/15 09:08 Order name: Troponin (emerg Dept Use Only) kdr 07/15 09:50 Order name: CBC with Automated Diff; Complete Time: 09:53 EDMS 07/15 09:50 Order name: Protime (+INR); Complete Time: 09:53 EDMS 07/15 10:12 Order name: Basic Metabolic Panel; Complete Time: 10:55 EDMS 07/15 10:12 Order name: Liver (Hepatic) Function; Complete Time: 10:55 EDMS 07/15 10:12 Order name: Troponin (Emerg Dept Use Only); Complete Time: 10:55 EDMS 07/15 10:12 Order name: NT PRO-BNP; Complete Time: 10:55 EDMS 07/15 10:12 Order name: Magnesium; Complete Time: 10:55 EDMS 07/15 09:08 Order name: XRAY Chest (1 view) kdr 07/15 09:08 Order name: EKG; Complete Time: 09:10 kdr 07/15 09:08 Order name: Cardiac monitoring; Complete Time: 09:11 kdr 07/15 09:08 Order name: EKG - Nurse/Tech; Complete Time: 09:28 [facility] 07/15 09:08 Order name: IV Saline Lock; Complete Time: 09: kdr 07/15 09:08 Order name: Labs collected and sent; Complete Time: 09:11 kdr 07/15 09:08 Order name: O2 Per Protocol; Complete Time: 09:11 kdr 07/15 09:08 Order name: O2 Sat Monitoring; Complete Time: 09:11 kdr 07/15 09:19 Order name: CT Head Brain wo Cont kdr 07/15 09:56 Order name: CT; Complete Time: 10:55 EDMS Administered Medications: 11:20 Drug: Lopressor 25 mg Route: PO; sv 11:28 Follow up: Response: Medication administered at discharge. jl7 Disposition: 07/15/19 11:10 Discharged to Home. Impression: Syncope and collapse, Hypertensive heart disease. - Condition is Stable. - Discharge Instructions: Hypertension, [id number], Syncope, [id number]. - Medication Reconciliation Form, Thank You Letter form. - Follow up: Private Physician; When: 2 - 3 days; Reason: If symptoms return, Further diagnostic work-up, Recheck today's complaints, Continuance of care, Re-evaluation by your physician. - Problem is new. - Symptoms are resolved. Signatures: Dispatcher [employer] EDAnastacia Perez RN RN Ryan Beard MD MD kdr Baxter, Heather, RN RN Rocael Hurd RN RN jl7 Corrections: (The following items were deleted from the chart) 11:31 11:10 07/15/2019 11:10 Discharged to Home. Impression: Syncope and collapse; jl7 Hypertensive heart disease. Condition is Stable. Forms are Medication Reconciliation Form, Thank You Letter, Antibiotic Education, Prescription Opioid Use. Follow up: Private Physician; When: 2 - 3 days; Reason: If symptoms return, Further diagnostic work-up, Recheck today's complaints, Continuance of care, Re-evaluation by your physician. Problem is new. Symptoms are resolved. kdr
[2019-07-15] MEDS ORDERED: METOPROLOL TAR 25 MG TAB ONE (11:13)
[2019-07-15 11:44] VITALS: TEMP 97.1
[2019-07-15 11:47] VITALS: O2SAT 97
[2019-07-15 11:50] VITALS: BP 202/90
--- NOTE | 2019-07-15 12:12 | RAD REPORT ---
EXAM DESCRIPTION: RAD - Chest Single View - 07/15/2019 9:45 am CLINICAL HISTORY: Slow crumple Chest pain. COMPARISON: Chest Single View dated 05/27/2019; Chest Single View dated 12/29/2017; Chest Single View d ated 06/17/2016; CHEST SINGLE VIEW dated 03/23/2010 FINDINGS: Portable technique limits examination quality. The lungs are grossly clear. The heart is upper limit of normal in size. No displaced fractures. IMPRESSION: No acute intrathoracic process suspected.
--- NOTE | 2019-07-16 11:36 | EKG ---
Test Date: 2019-07-15 Test Time: 09:23:34 [employer]: DEBBIE MEASUREMENT RESULTS: Intervals: Rate: 63 SC: 130 QRSD: 118 QT: 490 QTc: 501 [place]: P: 28 SC: 130 QRS: -61 T: -22 INTERPRETIVE STATEMENTS: Normal sinus rhythm Pulmonary disease pattern Incomplete right bundle branch block Left anterior fascicular block Inferior infarct, age undetermined Abnormal ECG Compared to ECG 05/27/2019 15:15:34 Sinus tachycardia no longer present Myocardial infarct finding still present Electronically Signed On 07-16-19 11:31:31 CDT by Kaushik Thao
== END 2019-07-15 11:31 | disposition home or self-care (01) ==
LOC: ER 08:52
DX: R55 Syncope and collapse (principal); I11.9 Hypertensive heart disease without heart failure; E78.00 Pure hypercholesterolemia, unspecified; F03.90 Unspecified dementia, unspecified severity, without behavioral disturbance, psychotic disturbance, mood disturbance, and anxiety
CPT/HCPCS: 36415; 70450; 71045; 80048; 80076; 83735; 83880; 84484; 85025; 85610; 93005; 99285

== ENCOUNTER 2021-04-24 03:48 | Emergency (ER) | payer OTHER ==
--- OUTSIDE RECORDS SUMMARY | 2021-04-24 03:50 | XMS REPORT | Continuity of Care Document ---
:1935 Author Organization [facility] t Address [address] [place] [address] Dr. Watts. [address] [place] [address] Care Team Providers Name Role Phone Pcp MD Primary Care Physician Unavailable Maulik Clemens MD Attending Clinician Doctor Unassigned, Name Attending Clinician Unavailable José Gorman DO Attending Clinician Mitul GORMAN Attending Clinician Unavailable Jacinta DAS Attending Clinician Unavailable Jacinta DAS Admitting Clinician Unavailable Problems Condition Condition Condition Status Onset Resolution Last Treating Co mments Source Name Details Category Date Date Treatment Clinician Date Simple Simple Disease Active [facility] - onset onset 00:00: Medical seizures seizures 00 Center followed followed by by impaired impaired consciousn consciousn ess ess CVA CVA Disease Active [facility] (cerebral (cerebral [facility]-28 [facility] - vascular vascular 00:00: Medica l accident) accident) 00 Cent er Seizure Seizure Disease Active [facility] - 00:[facility]: Medical 00 Center Allergies, Adverse Reactions, Alerts Allergy Allergy Status Severity Reaction(s) Onset Inactive Treating Comm ents Source Name Type Date Date Clinician Tree Nut Propensi Active Swelling Only with [facility] ty to 12 "mixed [facility] - adverse 00:00: nuts". Medical reaction 00 Center s Social History Social Habit Start Date Stop Date Quantity Comments Source Sex Assigned At [facility] Alcohol intake 2016-05-12 2016-05-12 Current drink[facility] - [facility]00:00 alcohol (finding) [facility] Alcohol Comment 2016-05-11 2016-05-[address] [facility] - 00:[facility]00 00:[facility]:00 [facility] Tobacco Comment 2016-05-11 2016-05-11 Currently vaping "no [facility] - 00:[facility]:00:00 nicotine" [facility] History of 2012-10-[address] [facility] - tobacco use 00:00:00 [facility] Kaeladeidre barraza Smoking Status Start Date Stop Date Source Former smoker 2016-05-12 00:00:00 2016-05-12 00:00:[address] [facility] - [facility] Center Medications Ordered Filled Start Stop Current Ordering Indication Dosage Frequency Signature Comments Components Source Medication Medication Date Date Medication? Clinician (SIG) Name Name aspirin 81 Yes 81mg QD Take [address] MG EC 7-30 by mouth [facility] - tablet 18:16: daily. Medical [facility] folic acid Yes 1mg QD Take [address] (FOLVITE) 1 7-30 by mouth [facility] - MG tablet 18:16: daily. Medica l 27 [facility] omega-3 Yes 2{capsu QD Take 2 [facility] t fatty 7-30 le} capsules [facility] - acids-vitam 18:16: by mouth Me dical in E 1,000 27 daily. [facility] mg Cap pravastatin Yes 20mg QD Take [address] [address] (PRAVACHOL) 7-30 by mouth [facility] - 20 MG 18:16: daily. Medical tablet 27 [facility] RIVASTIGMIN Yes 1{patch QD Place [address] E (EXELON 7-30 } patch onto [facility] - TD) 18:16: the skin Medical 27 daily. [facility] carvedilol Yes 6.25mg Take 6.[address] (COREG) 7-30 mg by [facility] - 6.25 MG 18:16: mouth 2 Medical tablet 27 (two) Center times daily with breakfast and dinner. alendronate Yes 70mg Take [address] (FOSAMAX) 7-30 by mouth [facility] - 70 MG 18:16: every 7 Medical tablet 27 days Take Center in the morning with a full glass of water, on an empty stomach, and do not take anything else by mouth or lie down for the next 30 min. . lisinopril 2019-0 Yes hypertensio 10mg QD Take [address] (PRINIVIL,Z 7-30 n by mouth [facility] - ESTRIL) 10 18:16: daily. Medic al MG tablet Center Procedures This patient has no known procedures. Plan of Care Planned Activity Planned Date Details Comments Source Future Scheduled 2020-07-01 INFLUENZA VACCINE (#1) [facility] - Test 00:00:00 [code = INFLUENZA Medical Ce nter VACCINE (#1)] Future Scheduled [address] [facility] - Test 00:00:00 WELLNESS (YEAR 2 or Medical Center FIRST YEAR if no IPPE) [code = MEDICARE ANNUAL WELLNESS (YEAR 2 or FIRST YEAR if no IPPE)] Future Scheduled 1999 PNEUMOCOCCAL 65+ YRS [facility] - Test 00:00:00 (1 of 1 - Medical Center [id number] PCV13) [code = PNEUMOCOCCAL 65+ YRS (1 of 1 - [id number] PCV13)] Encounters Start End Encounter Admission Attending Care Care Encounter Source Date/Time Date/Time Type Type Clinicians Facility Department ID 2021-02-17 2021-02-17 Refill Jayleen [facility] [id number] 00:00:00 00:00:00 Andrew Diaz [id number] [place] [id number] Professio [phone] [address] 2021-01-05 2021-01-05 Refill Jayleen [facility] [id number] 00:00:00 00:00:00 Andrew Diaz [id number] [place] [id number] Professio [phone] [address] 2020-12-01 2020-12-01 Telephone Jayleen ALROLAND [id number] 00:00:00 00:00:00 Andrew Diaz [id number] [place] [id number] Professio [phone] [address] 2020-10-21 2020-10-21 Orders Doctor GARRIDO [id number] 00:00:00 00:00:00 Only Unassigned, NASIR [id number] [facility] [phone] [id number] 2020-10-14 2020-10-14 Office ALBIN Clemens [id number] 08:06:43 08:55:39 Visit Andrew Diaz [id number] [place] [id number] Professio [phone] [facility] 2020-03-11 2020-03-11 Office NARGIS Gorman [id number] 08:58:57 10:06:25 Visit Nicolaas AMBULATOR [id number] [facility] [place] Y [id number] [phone] [id number] 2019-06-21 2019-06-21 Office NARGIS Gorman [id number] 08:56:22 12:28:39 Visit Nicolaas AMBULATOR [id number] [facility] Y [id number] [phone] [id number] Results Test Description Test Time Test Comments Results Result [facility] e Comments CT, CTANGIO BRAIN 2019-11-21 FINAL REPORT PATIENT 07:33:00 ID: [id number] CT, CAROTID, ANGIO, CT, CTANGIO BRAIN HISTORY: Left carotid aneurysm COMPARISON: MRI of the brain and MRA of the head/neck 05/28/2019 TECHNIQUE: CTA of the head and neck was performed with intravenous iodine based contrast. Coronal, sagittal, and oblique maximum intensity projection reformations were created. One or more of the following dose reduction techniques were used: Automated exposure control, adjustment of the mA and/or kV according to patient size, and/or utilization of iterative reconstruction technique. DISCUSSION:If present, any cervical carotid stenosis will be measured as a percentage relative to the [place] artery distal to the stenosis (NASCET). CERVICAL CTA: There are mild calcifications in aortic arch and proximal great vessels. An aberrant right subclavian artery is present, a normal variant. Right Carotid: Mild calcified plaque at the right carotid bulb does not cause significant stenosis. Left Carotid: Mild to moderate left carotid bulb calcified plaque also does not cause significant stenosis. Right vertebral artery: Patent, no abnormalities. Left vertebral artery: Patent, no abnormalities. INTRACRANIAL CTA: Carotid arteries:Mild bilateral carotid siphon calcified plaque is present without significant stenosis.There is stable mild dolichoectasia of the bilateral carotid siphons, left greater than right.Stable mild focal ectasia (fusiform) of the posterior cavernous left internal carotid artery measures up to 6 mm in diameter.No abnormalities in the A1 or M1 segments. Vertebrobasilar Circulation: Right vertebral artery: Minimal calcified plaque in the right V4 segment does not cause significant stenosis. Left vertebral artery: Mild calcified plaque in the left before segment also does not cause significant stenosis. Basilar artery: Patent, no abnormalities. Posterior cerebral arteries: Patent, no abnormalities. Normal Variants:ACom: Patent.PComs: Patent on the left. Not clearly visualized on the right.Vertebral arteries: The left vertebral artery is dominant. The major dural venous sinuses are grossly patent. Additional findings: There is mild generalized volume loss. Prominent deep and periventricular white matter hypodensities are likely chronic microvascular ischemic changes. Bilateral ocular lens replacement is noted. The left mastoid air cells are underpneumatized. Small left middle ear effusion is present. Multiple hypodense bilateral thyroid nodules are present, measuring up to 1.1 cm in size. A few small calcifications are seen in the mid right thyroid lobe. This can be further evaluated with thyroid ultrasound. There are mild degenerative changes throughout the spine. Mild scarring and emphysematous changes are seen in the upper lungs. IMPRESSION:1.Stable mild dolichoectasia of the bilateral carotid siphons, left greater than right. Associated stable mild focal ectasia (fusiform) of the posterior cavernous left internal carotid artery measures up to 6 mm in diameter.2.Otherwise, no evidence for aneurysm.3.Minimal scattered atherosclerotic calcified plaque without significant stenosis as described above.4.Incidental bilateral hypodense thyroid nodules with small calcifications in the mid right thyroid lobe. This can be further evaluated with thyroid ultrasound. Signed: Mo Cannon Verified Date/Time: 11/21/2019 07:33:55 Reading Location: [facility] Room [address] [place] [address] , CAROTID, ANGIO 2019-11-21 FINAL REPORT PATIENT 07:33:00 ID: [id number] CT, CAROTID, ANGIO, CT, CTANGIO BRAIN HISTORY: Left carotid aneurysm COMPARISON: MRI of the brain and MRA of the head/neck 05/28/2019 TECHNIQUE: CTA of the head and neck was performed with intravenous iodine based contrast. Coronal, sagittal, and oblique maximum intensity projection reformations were created. One or more of the following dose reduction techniques were used: Automated exposure control, adjustment of the mA and/or kV according to patient size, and/or utilization of iterative reconstruction technique. DISCUSSION:If present, any cervical carotid stenosis will be measured as a percentage relative to the [place] artery distal to the stenosis (NASCET). CERVICAL CTA: There are mild calcifications in aortic arch and proximal great vessels. An aberrant right subclavian artery is present, a normal variant. Right Carotid: Mild calcified plaque at the right carotid bulb does not cause significant stenosis. Left Carotid: Mild to moderate left carotid bulb calcified plaque also does not cause significant stenosis. Right vertebral artery: Patent, no abnormalities. Left vertebral artery: Patent, no abnormalities. INTRACRANIAL CTA: Carotid arteries:Mild bilateral carotid siphon calcified plaque is present without significant stenosis.There is stable mild dolichoectasia of the bilateral carotid siphons, left greater than right.Stable mild focal ectasia (fusiform) of the posterior cavernous left internal carotid artery measures up to 6 mm in diameter.No abnormalities in the A1 or M1 segments. Vertebrobasilar Circulation: Right vertebral artery: Minimal calcified plaque in the right V4 segment does not cause significant stenosis. Left vertebral artery: Mild calcified plaque in the left before segment also does not cause significant stenosis. Basilar artery: Patent, no abnormalities. Posterior cerebral arteries: Patent, no abnormalities. Normal Variants:ACom: Patent.PComs: Patent on the left. Not clearly visualized on the right.Vertebral arteries: The left vertebral artery is dominant. The major dural venous sinuses are grossly patent. Additional findings: There is mild generalized volume loss. Prominent deep and periventricular white matter hypodensities are likely chronic microvascular ischemic changes. Bilateral ocular lens replacement is noted. The left mastoid air cells are underpneumatized. Small left middle ear effusion is present. Multiple hypodense bilateral thyroid nodules are present, measuring up to 1.1 cm in size. A few small calcifications are seen in the mid right thyroid lobe. This can be further evaluated with thyroid ultrasound. There are mild degenerative changes throughout the spine. Mild scarring and emphysematous changes are seen in the upper lungs. IMPRESSION:1.Stable mild dolichoectasia of the bilateral carotid siphons, left greater than right. Associated stable mild focal ectasia (fusiform) of the posterior cavernous left internal carotid artery measures up to 6 mm in diameter.2.Otherwise, no evidence for aneurysm.3.Minimal scattered atherosclerotic calcified plaque without significant stenosis as described above.4.Incidental bilateral hypodense thyroid nodules with small calcifications in the mid right thyroid lobe. This can be further evaluated with thyroid ultrasound. Signed: Mo Cannon MDReport Verified Date/Time: 11/21/2019 07:33:55 Reading Location: [facility] Reading Room [address] [place] [address] -CREATININE 2019-11-20 10:29:00 Test Item Value Reference Range Interpretation Comme [facility] POC-CREATININE ([facility]) (test 1.2 mg/dL 0.6-1.[address] [facility] 7200 code = 1859) [facility] [address] POC-EGFR (BEAKER) (test code = 43 mL/min/1.73M2 1860) EEG AWAKE AND [id number] 14:23:00Reason for exam:->Episode of unresponsiveness.DATE OF REPORT: 05/29/2019NAME: Enoc MixonMRN: [id number] of : 4ACC: [id number]: [id number] time: 12:36 PMStop time: 13:00 PM ICD-10: R56.9 CPT Code: 36258 HISTORY: Enoc Mixon is a 83 y.o. female with history of HTN, stroke, dementia, who transferred after having a seizure-like episode (episode of unresponsiveness, after she had felt "wobbly" and was dragging her feet) at OSH. Events reported to occur on average 3 times per month described as blank staring, followed bygarbled speech MEDICATIONS THAT COULD AFFECT EEG: Ativan, Zofran, Wellbutrin TECHNICAL SUMMARY: This is a digital EEG recorded with 32 input channels on a [employer] system, reviewed with bipolar and referential montages using the modified combinatorial system nomenclature. DESCRIPTION OF RECORD:During the maximally alert state, a 9 to 9.5 Hz posterior dominant rhythm was seen that was symmetric, reactive to eye opening and well regulated. More anteriorly, low voltage frontocentral beta predominated. Drowsiness was characterized by alpha attenuation and increased frontocentral theta, vertexsharp transients. There were rareright anterior temporal (FT10) sharp waves noted during drowsiness. HV: Hyperventilation was not performed. PHOTIC STIMULATION: Photic stimulation was done from 1-33 Hz; no photic driving was seen; photoparoxysmal responses were absent. VIDEO EVENTS: none ELECTROCARDIOGRAM: EKG tracing reviewed, showing normal sinus rhythm IMPRESSION: Abnormal awake and drowsy EEG1. Rare right anterior temporal (FT10) sharp waves CLINICAL CORRELATION: The presence of right temporal sharp waves indicate a risk for focal epilepsy. There were no electrographic seizures recorded. Gifty Chau MDNeurophysiology Fellow Yuliet Arellano MD Attending Neurophysiologist [facility] GLOBIN [id number] 10:12:00 Test Item Value Reference Range Interpretation Comments HEMOGLOBIN A1C (BEAKER) (test code = 4.8 % 4.3-6.1 368) CBC W/PLT COUNT & AUTO [id number] 08:26:00 Test Item Value Reference Range Interpretation Comments WHITE BLOOD CELL COUNT (BEAKER) 3.5 K/ L 3.5-10.5 (test code = 775) RED BLOOD CELL COUNT (BEAKER) 3.15 M/ L 3.93-5.22 L (test code = 761) HEMOGLOBIN (BEAKER) (test code = 9.2 GM/DL 11.2-15.7 L 410) HEMATOCRIT (BEAKER) (test code = 29.3 % 34.1-44.9 L 411) MEAN CORPUSCULAR VOLUME (BEAKER) 93.0 fL 79.4-94.8 (test code = 753) MEAN CORPUSCULAR HEMOGLOBIN 29.2 pg 25.6-32.2 (BEAKER) (test code = 751) MEAN CORPUSCULAR HEMOGLOBIN CONC 31.4 GM/DL 32.2-35.5 L (BEAKER) (test code = 752) RED CELL DISTRIBUTION WIDTH 13.1 % 11.7-14.4 (BEAKER) (test code = 412) PLATELET COUNT (BEAKER) (test code 91 K/CU MM 150-450 L = 756) MEAN PLATELET VOLUME (BEAKER) 12.2 fL 9.4-12.3 (test code = 754) NUCLEATED RED BLOOD CELLS (BEAKER) 0 /100 WBC 0-0 (test code = 413) NEUTROPHILS RELATIVE PERCENT 56 % (BEAKER) (test code = 429) LYMPHOCYTES RELATIVE PERCENT 33 % (BEAKER) (test code = 430) MONOCYTES RELATIVE PERCENT 10 % (BEAKER) (test code = 431) EOSINOPHILS RELATIVE PERCENT 1 % (BEAKER) (test code = 432) BASOPHILS RELATIVE PERCENT 0 % (BEAKER) (test code = 437) NEUTROPHILS ABSOLUTE COUNT 1.94 K/ L 1.56-6.13 (BEAKER) (test code = 670) LYMPHOCYTES ABSOLUTE COUNT 1.13 K/ L 1.18-3.74 L (BEAKER) (test code = 414) MONOCYTES ABSOLUTE COUNT (BEAKER) 0.36 K/ L 0.24-0.36 (test code = 415) EOSINOPHILS ABSOLUTE COUNT 0.02 K/ L 0.04-0.36 L (BEAKER) (test code = 416) BASOPHILS ABSOLUTE COUNT (BEAKER) 0.01 K/ L 0.01-0.08 (test code = 417) IMMATURE GRANULOCYTES-RELATIVE 0 % 0-1 PERCENT (BEAKER) (test code = 2801) C-REACTIVE [id number] 06:38:00 Test Item Value Reference Range Interpretation Comments C-REACTIVE PROTEIN (BEAKER) (test 0.11 mg/dL 0.00-0.50 code = 676) HEPATIC FUNCTION [id number] 06:37:00 Test Item Value Reference Range Interpretation Comments TOTAL PROTEIN (BEAKER) (test code = 5.3 gm/dL 6.0-8.3 L 770) ALBUMIN (BEAKER) (test code = 1145) 3.2 g/dL 3.5-5.0 L BILIRUBIN TOTAL (BEAKER) (test code 0.5 mg/dL 0.2-1.2 = 377) BILIRUBIN DIRECT (BEAKER) (test 0.2 mg/dL 0.1-0.5 code = 706) ALKALINE PHOSPHATASE (BEAKER) (test 45 U/L 40-150 code = 346) AST (SGOT) (BEAKER) (test code = 17 U/L 5-34 353) ALT (SGPT) (BEAKER) (test code = 9 U/L 6-55 347) BASIC METABOLIC [id number] 06:37:00 Test Item Value Reference Range Interpretation Comments SODIUM (BEAKER) 140 meq/L 136-145 (test code = 381) POTASSIUM (BEAKER) 3.6 meq/L 3.5-5.1 (test code = 379) CHLORIDE (BEAKER) 110 meq/L 98-107 H (test code = 382) CO2 (BEAKER) (test 25 meq/L 22-29 code = 355) BLOOD UREA NITROGEN 10 mg/dL 7-21 (BEAKER) (test code = 354) CREATININE (BEAKER) 0.73 mg/dL 0.57-1.25 (test code = 358) GLUCOSE RANDOM 77 mg/dL 70-105 (BEAKER) (test code = 652) CALCIUM (BEAKER) 8.1 mg/dL 8.4-10.2 L (test code = 697) EGFR (BEAKER) (test 76 mL/min/1.73 ESTIMA SARAH GFR IS code = 1092) sq m NOT ACCURATE CREATININE CLEARANCE IN PREDICTING GLOMERULAR FILTRATION RATE . ESTIMATED GFR I S NOT APPLICABLE FOR DIALYSIS PATIEN TS. TSH/FREE T4 IF [id number] 06:34:00 Test Item Value Reference Range Interpretation Comments THYROID STIMULATING HORMONE 1.83 uIU/mL 0.35-4.94 (BEAKER) (test code = 772) VITAMIN B12 AND [id number] 04:46:00 Test Item Value Reference Range Interpretation Comments VITAMIN B12 (BEAKER) (test code = > pg/mL 213-816 H 774) FOLATE (BEAKER) (test code = 362) 19.6 ng/mL >=7.0 MR, MRA, BRAIN, WITHOUT [id number] 02:18:00Reason for exam:->Ischemic Stroke EvaluationFINAL REPORT MRA head and neck without contrast. CLINICAL HISTORY: Ischemic stroke evaluation. COMPARISON: None. TECHNIQUE: Two- and three-dimensional tnem-dz-ieqvbq MRA images of the intra- and extracranial carotid and vertebral arterial circulations were obtained, from which maximal intensity projection 3-D reconstructions were created. FINDINGS: MRA neck: There is no vesselocclusion or NASCET-quantifiable stenosis in the extracranial carotid or vertebral arterial circulations. Flow is antegrade in both vertebral arteries. MRA [place]: There is no vessel occlusion [...] at 2:15 AM 05/28/2019 and Signed: [facility] Verified Date/Time: 05/28/2019 02:18:00 MR, MRA, NECK, WITHOUT IV [id number] 02:18:00Reason for exam:->Ischemic Stroke EvaluationFINAL REPORT MRA head and neck without contrast. CLINICAL HISTORY: Ischemic stroke evaluation. COMPARISON: None. TECHNIQUE: Two- and three-dimensional idie-tq-tepmdj MRA images of the intra- and extracranial carotid and vertebral arterial circulations were obtained, from which maximal intensity projection 3-D reconstructions were created. FINDINGS: MRA neck: There is no vesselocclusion or NASCET-quantifiable stenosis in the extracranial carotid or vertebral arterial circulations. Flow is antegrade in both vertebral arteries. MRA [place]: There is no vessel occlusion or flow-limiting [...] 2:15 AM 05/28/2019 and Signed: Americo Reece Verified Date/Time: 05/28/2019 02:18:00 MR, BRAIN, WITHOUT [id number] 02:09:00Reason for exam:->Ischemic Stroke EvaluationFINAL REPORT Exam: [...] at 2:07 AM 05/28/2019. Signed: Americo Reece Verified Date/Time: 05/28/2019 02:09:16 LIPID [id number] 00:06:00 Test Item Value Reference Range Interpretation Comments TRIGLYCERIDES (BEAKER) (test code = 49 mg/dL 540) CHOLESTEROL (BEAKER) (test code = 129 mg/dL 631) HDL CHOLESTEROL (BEAKER) (test code 52 mg/dL = 976) LDL CHOLESTEROL CALCULATED (BEAKER) 67 mg/dL (test code = 633) Triglyceride Reference Range: Low Risk <150 Borderline 150-199 High Risk 200-499 Very High Risk >=500Cholesterol Reference Range: Low Risk <200 Borderline 200-239 High Risk >240HDL Cholesterol Reference Range: Low Risk >=60 High Risk <40LDL Cholesterol Reference Range: Optimal <100 Near Optimal 100-129 Borderline 130-159 High 160-189 Very High >=190URINALYSIS WITH MICROSCOPIC IF [id number] 00:01:00 Test Item Value Reference Range Interpretation Comments COLOR (BEAKER) (test code = 470) Colorless CLARITY (BEAKER) (test code = 469) Clear SPECIFIC GRAVITY UA (BEAKER) (test 1.004 1.001-1.035 code = 468) PH UA (BEAKER) (test code = 467) 7.0 5.0-8.0 PROTEIN UA (BEAKER) (test code = Negative Negative 464) GLUCOSE UA (BEAKER) (test code = Negative Negative 365) KETONES UA (BEAKER) (test code = Negative Negative 371) BILIRUBIN UA (BEAKER) (test code = Negative Negative 462) BLOOD UA (BEAKER) (test code = 461) Negative Negative NITRITE UA (BEAKER) (test code = Negative Negative 465) LEUKOCYTE ESTERASE UA (BEAKER) Negative Negative (test code = 466) UROBILINOGEN UA (BEAKER) (test code 0.2 mg/dL 0.2-1.0 = 463) SOURCE(BEAKER) (test code = 2795) CBC W/PLT COUNT & AUTO [id number] 23:49:00 Test Item Value Reference Range Interpretation Comments WHITE BLOOD CELL COUNT (BEAKER) 4.7 K/ L 3.5-10.5 (test code = 775) RED BLOOD CELL COUNT (BEAKER) 3.57 M/ L 3.93-5.22 L (test code = 761) HEMOGLOBIN (BEAKER) (test code = 10.5 GM/DL 11.2-15.7 L 410) HEMATOCRIT (BEAKER) (test code = 32.0 % 34.1-44.9 L 411) MEAN CORPUSCULAR VOLUME (BEAKER) 89.6 fL 79.4-94.8 (test code = 753) MEAN CORPUSCULAR HEMOGLOBIN 29.4 pg 25.6-32.2 (BEAKER) (test code = 751) MEAN CORPUSCULAR HEMOGLOBIN CONC 32.8 GM/DL 32.2-35.5 (BEAKER) (test code = 752) RED CELL DISTRIBUTION WIDTH 13.0 % 11.7-14.4 (BEAKER) (test code = 412) PLATELET COUNT (BEAKER) (test 103 K/CU MM 150-450 L code = 756) MEAN PLATELET VOLUME (BEAKER) 12.7 fL 9.4-12.3 H (test code = 754) NUCLEATED RED BLOOD CELLS 0 /100 WBC 0-0 (BEAKER) (test code = 413) NEUTROPHILS RELATIVE PERCENT 58 % (BEAKER) (test code = 429) LYMPHOCYTES RELATIVE PERCENT 30 % (BEAKER) (test code = 430) MONOCYTES RELATIVE PERCENT 11 % (BEAKER) (test code = 431) EOSINOPHILS RELATIVE PERCENT 0 % (BEAKER) (test code = 432) BASOPHILS RELATIVE PERCENT 0 % (BEAKER) (test code = 437) NEUTROPHILS ABSOLUTE COUNT 2.70 K/ L 1.56-6.13 (BEAKER) (test code = 670) LYMPHOCYTES ABSOLUTE COUNT 1.41 K/ L 1.18-3.74 (BEAKER) (test code = 414) MONOCYTES ABSOLUTE COUNT (BEAKER) 0.51 K/ L 0.24-0.36 H (test code = 415) EOSINOPHILS ABSOLUTE COUNT 0.02 K/ L 0.04-0.36 L (BEAKER) (test code = 416) BASOPHILS ABSOLUTE COUNT (BEAKER) 0.01 K/ L 0.01-0.08 (test code = 417) IMMATURE GRANULOCYTES-RELATIVE 0 % 0-1 PERCENT (BEAKER) (test code = 4841)
[2021-04-24] MEDS ORDERED: TETANUS & DIPHTHERIA TOX,ADULT 0.5 ML VIAL ONE (04:51)
[2021-04-24] MEDS ORDERED: DERMABOND SKIN ADHESIVE TOP ONE (05:23)
--- NOTE | 2021-04-24 05:40 | ER ---
Nurse's Notes [facility] Name: Zonia Spencer Age: 85 yrs Sex: Female : 1935 Arrival Date: 04/24/2021 Time: 03:51 Bed 4 Private MD: CHECO HATCH Diagnosis: Laceration without foreign body of right forearm Presentation: 04/24 04:06 Chief complaint: Patient states: was using a walker/cane and lost balance, denies em hitting head, skin tears noted to the right arm, reports taking 1 baby aspirin. Care prior to arrival: None. Mechanism of Injury: Fall from standing position. Trauma event details: Injury occurred in the [facility], Injury occurred: at home. 04:06 Acuity: YAMLIETH 3 em 04:06 Method Of Arrival: Wheelchair em 04:56 Coronavirus screen: Client denies travel out of the [place] in the last 14 days. At this ak2 time, the client does not indicate any symptoms associated with coronavirus-19. Ebola Screen: Patient negative for fever greater than or equal to 101.5 degrees Fahrenheit, and additional compatible Ebola Virus Disease symptoms Patient denies exposure to infectious person. Patient denies travel to an Ebola-affected area in the 21 days before illness onset. No symptoms or risks identified at this time. Initial Sepsis Screen: Does the patient meet any 2 criteria? No. Patient's initial sepsis screen is negative. Does the patient have a suspected source of infection? No. Patient's initial sepsis screen is negative. Risk Assessment: Do you want to hurt yourself or someone else? Patient reports no desire to harm self or others. Onset of symptoms was April 24, 2021. Triage Assessment: 04:55 General: Appears in no apparent distress. Behavior is calm, cooperative. Pain: Denies ak2 pain. Historical: - Allergies: 04:08 No Known Allergies; em - PMHx: 04:08 Dementia; High Cholesterol; Hypertension; Osteoporosis; TIA; em - Immunization history: Last tetanus immunization: - up to date. - Social history:: Smoking status: Patient denies any tobacco usage or history of. - Family history:: not pertinent. Screenin:55 Abuse screen: Denies threats or abuse. Denies injuries from another. Nutritional ak2 screening: No deficits noted. Tuberculosis screening: No symptoms or risk factors identified. Fall Risk Assessment: 04:55 General: Appears in no apparent distress. ak2 05:40 Reassessment: Patient and/or family updated on plan of care and expected duration. Pain ea level reassessed. Patient is alert, oriented x 3, equal unlabored respirations, skin warm/dry/pink. Patient states feeling better. Vital Signs: 04:08 BP 159 / 75; Pulse 70; Resp 16; Temp 97.5; Pulse Ox 99% on R/A; Height 5 ft. 2 in. em (157.48 cm); Pain 2/10; 05:30 BP 160 / 68; Pulse 68; Resp 18; Pulse Ox 99% ; ea ED Course: 03:51 Patient arrived in ED. es 03:51 CHECO HATCH is Private Physician. es 04:07 Triage completed. em 04:08 Arm band placed on. em 04:16 Merritt Gorman MD is Attending Physician. [facility] 04:28 Stuart Alvarado is Primary Nurse. ak2 04:55 Patient has correct armband on for positive identification. ak2 04:55 No provider procedures requiring assistance completed. ak2 05:12 Elbow Right 3 View XRAY In Process Unspecified. EDMS 05:38 CHECO HATCH is Referral Physician. [facility] 05:38 Ace Britt MD is Referral Physician. iker 05:59 Patient did not have IV access during this emergency room visit. ea Administered Medications: 04:32 Not Given (Patient Refused): Tetanus-Diphtheria Toxoid Adult 0.5 ml IM once ak2 Outcome: 05:40 Discharge ordered by . [facility] 05:58 Discharged to home ambulatory, with family. ea 05:58 Condition: stable 05:58 Discharge instructions given to patient, family, Instructed on discharge instructions, follow up and referral plans. Demonstrated understanding of instructions, follow-up care. 05:59 Patient left the ED. ea Signatures: Dispatcher [employer] EDMerritt Velazquez MD MD cha Salyer, Edna es Munoz, Edgar, RN Alexa Jacinto RN Stuart Burris ea ak2
--- NOTE | 2021-04-24 05:40 | EDPHYS ---
Physician Documentation [facility] Name: Zonia Spencer Age: 85 yrs Sex: Female : 1935 Arrival Date: 04/24/2021 Time: 03:51 Bed 4 Private MD: CHECO HATCH ED Physician Merritt Gorman HPI: 04/24 05:29 This 85 yrs old Female presents to ER via Wheelchair with complaints of Fall iker Injury, Laceration To Arm. 05:29 Details of fall: The patient fell from an upright position, while walking. Onset: The iker symptoms/episode began/occurred just prior to arrival. Associated injuries: The patient sustained laceration, 8 cm(s), painful injury. Severity of symptoms: At their worst the symptoms were mild, in the emergency department the symptoms are unchanged. The patient has not experienced similar symptoms in the past. Historical: - Allergies: 04:08 No Known Allergies; em - PMHx: 04:08 Dementia; High Cholesterol; Hypertension; Osteoporosis; TIA; em - Immunization history: Last tetanus immunization: - up to date. - Social history:: Smoking status: Patient denies any tobacco usage or history of. - Family history:: not pertinent. ROS: 05:29 Constitutional: Negative for fever, chills, and weight loss, Eyes: Negative for injury, iker pain, redness, and discharge, ENT: Negative for injury, pain, and discharge, Neck: Negative for injury, pain, and swelling, Cardiovascular: Negative for chest pain, palpitations, and edema, Respiratory: Negative for shortness of breath, cough, wheezing, and pleuritic chest pain, Abdomen/GI: Negative for abdominal pain, nausea, vomiting, diarrhea, and constipation, Back: Negative for injury and pain, : Negative for injury, bleeding, discharge, and swelling, Skin: Negative for injury, rash, and discoloration, Neuro: Negative for headache, weakness, numbness, tingling, and seizure, Psych: Negative for depression, anxiety, suicide ideation, homicidal ideation, and hallucinations, Allergy/Immunology: Negative for hives, rash, and allergies, Endocrine: Negative for neck swelling, polydipsia, polyuria, polyphagia, and marked weight changes, Hematologic/Lymphatic: Negative for swollen nodes, abnormal bleeding, and unusual bruising. 05:29 MS/extremity: Positive for laceration, of the right antecubital area and dorsal aspect of right forearm. Exam: 05:29 Constitutional: This is a well developed, well nourished patient who is awake, alert, iker and in no acute distress. Head/Face: Normocephalic, atraumatic. Eyes: Pupils equal round and reactive to light, extra-ocular motions intact. Lids and lashes normal. Conjunctiva and sclera are non-icteric and not injected. Cornea within normal limits. Periorbital areas with no swelling, redness, or edema. ENT: Nares patent. No nasal discharge, no septal abnormalities noted. Tympanic membranes are normal and external auditory canals are clear. Oropharynx with no redness, swelling, or masses, exudates, or evidence of obstruction, uvula midline. Mucous membranes moist. Neck: Trachea midline, no thyromegaly or masses palpated, and no cervical lymphadenopathy. Supple, full range of motion without nuchal rigidity, or vertebral point tenderness. No Meningismus. Chest/axilla: Normal chest wall appearance and motion. Nontender with no deformity. No lesions are appreciated. Cardiovascular: Regular rate and rhythm with a normal S1 and S2. No gallops, murmurs, or rubs. Normal PMI, no JVD. No pulse deficits. Respiratory: Lungs have equal breath sounds bilaterally, clear to auscultation and percussion. No rales, rhonchi or wheezes noted. No increased work of breathing, no retractions or nasal flaring. Abdomen/GI: Soft, non-tender, with normal bowel sounds. No distension or tympany. No guarding or rebound. No evidence of tenderness throughout. Back: No spinal tenderness. No costovertebral tenderness. Full range of motion. Female : Normal external genitalia. MS/ Extremity: Pulses equal, no cyanosis. Neurovascular intact. Full, normal range of motion. Neuro: Awake and alert, GCS 15, oriented to person, place, time, and situation. Cranial nerves II-XII grossly intact. Motor strength 5/5 in all extremities. Sensory grossly intact. Cerebellar exam normal. Normal gait. Psych: Awake, alert, with orientation to person, place and time. Behavior, mood, and affect are within normal limits. 05:29 Skin: Appearance: Color: normal in color, Temperature: normal temperature, Moisture: normal moisture, petechiae, not noted, abscess, not appreciated, cellulitis, is not appreciated, induration, is not appreciated, injury, laceration(s), the wound is approximately 6 cm(s), with a depth of .25 cm(s), of the right antecubital area and dorsal aspect of right forearm. Vital Signs: 04:08 BP 159 / 75; Pulse 70; Resp 16; Temp 97.5; Pulse Ox 99% on R/A; Height 5 ft. 2 in. em (157.48 cm); Pain 2/10; 05:30 BP 160 / 68; Pulse 68; Resp 18; Pulse Ox 99% ; ea Laceration: 05:29 Wound Repair of 8cm ( 3.1in ) subcutaneous laceration to right antecubital area and iker dorsal aspect of right forearm. Skin/tissue flap noted.. Distal neuro/vascular/tendon intact. Anesthesia: NONE with 0 mls of NONE. Wound prep: Simple cleansing by nurse by me. Skin closed with NO SUTURES STERI STRIPS using STERI STRIPS, MASTISOL. Dressed with NONE. Patient tolerated well. MDM: 04:16 Patient medically screened. [facility] 05:36 Differential diagnosis: abrasion, laceration. Data reviewed: vital signs, nurses notes. [facility] Data interpreted: crew caller: not applicable for this patient encounter. rate is 70 beats/min, rhythm is regular, Pulse oximetry: on room air is 99 %. Counseling: I had a detailed discussion with the patient and/or guardian regarding: the historical points, exam findings, and any diagnostic results supporting the discharge/admit diagnosis, the need for outpatient follow up, for definitive care, a hand specialist. 04/24 04:18 Order name: Elbow Right 3 View XRAY [facility] 04/24 04:18 Order name: Misc. Order: CLEAN AND DRESS WOUNDS; Complete Time: 05:39 [facility] Administered Medications: 04:32 Not Given (Patient Refused): Tetanus-Diphtheria Toxoid Adult 0.5 ml IM once ak2 Disposition: 04/24/21 05:40 Discharged to Home. Impression: Laceration without foreign body of right forearm. - Condition is Stable. - Discharge Instructions: Skin Tear Care, Deep Skin Avulsion, Skin Tear Care, [id number]. - Medication Reconciliation Form, Thank You Letter, Antibiotic Education, Prescription Opioid Use form. - Follow up: CHECO HATCH; When: 2 - 3 days; Reason: Recheck today's complaints, Continuance of care, Re-evaluation by your physician. Follow up: Ace Britt MD; When: 2 - 3 days; Reason: Recheck today's complaints, Re-evaluation by your physician. - Problem is new. - Symptoms have improved. Signatures: Dispatcher [employer] EDMerritt Velazquez MD MD cha Munoz, Edgar, RN RN Alexa Brink RN RN Stuart Contreras Corrections: (The following items were deleted from the chart) 05:59 05:40 04/24/2021 05:40 Discharged to Home. Impression: Laceration without foreign body ea of right forearm. Condition is Stable. Forms are Medication Reconciliation Form, Thank You Letter, Antibiotic Education, Prescription Opioid Use. Follow up: CHECO HATCH; When: 2 - 3 days; Reason: Recheck today's complaints, Continuance of care, Re-evaluation by your physician. Follow up: Ace Britt; When: 2 - 3 days; Reason: Recheck today's complaints, Re-evaluation by your physician. Problem is new. Symptoms have improved. iker
[2021-04-24 06:04] VITALS: TEMP 97.5; O2SAT 99
[2021-04-24 06:06] VITALS: BP 160/68
--- NOTE | 2021-04-24 08:45 | RAD REPORT ---
EXAM DESCRIPTION: RAD - Elbow Right 3 View - 04/24/2021 5:12 am CLINICAL HISTORY: Elbow pain FINDINGS: A limited evaluation secondary to difficulty with patient positioning. No gross fracture or dislocation is seen. Bones are osteoporotic
== END 2021-04-24 05:59 | disposition home or self-care (01) ==
LOC: ER 03:48
DX: S51.811A Laceration without foreign body of right forearm, initial encounter (principal); W19.XXXA Unspecified fall, initial encounter; Y93.01 Activity, walking, marching and hiking; Z23 Encounter for immunization; I10 Essential (primary) hypertension; F03.90 Unspecified dementia, unspecified severity, without behavioral disturbance, psychotic disturbance, mood disturbance, and anxiety
CPT/HCPCS: 90714

== ENCOUNTER 2021-08-15 11:23 | Emergency (ER) | payer OTHER ==
[2021-08-15 12:51] LABS: Absolute Lymphocytes (CBC) 1.6 K/uL (0.7-4.9); Basophils % 0.5 % (0-1.3); Hematocrit 31.3 % (36.0-45.0); Lymphocytes % 25.8 % (15.3-44.8); MPV 10.5 fL (7.6-11.3); RBC Red Blood Cell Count 3.57 M/uL (3.86-4.86)
[2021-08-15 13:02] LABS: Albumin 2.9 g/dL (3.4-5.0); Bilirubin Direct 0.2 mg/dL (0-0.2); Bilirubin Total 0.4 mg/dL (0.2-1.0); Potassium 3.2 mmol/L (3.5-5.1); Protein, Total 6.9 g/dL (6.4-8.2)
--- NOTE | 2021-08-15 14:01 | RAD REPORT ---
EXAM DESCRIPTION: CT - Abdomen Pelvis W Contrast - 08/15/2021 1:36 pm CLINICAL HISTORY: abdominal pain COMPARISON: No comparisons TECHNIQUE: Biphasic, helical CT imaging of the abdomen and pelvis was performed following 100 ml non -ionic IV contrast. No oral contrast administered. All CT scans are performed using dose optimization technique as appropriate and may include automated exposure control or mA/KV adjustment according to patient size. FINDINGS: No suspicious findings in the lung bases. The liver, spleen, and pancreas show no suspicious findings. Gallbladder is absent. Degree of biliary tree dilatation within normal limits for a post cholecystectomy patient. Symmetric renal function is seen with no hydronephrosis or suspicious renal mass. No pyelonephritis o r acute parenchymal process. Urinary bladder is contracted which accentuates the wall thickness. No a drenal abnormalities. Atrophic uterus is seen. Ovaries are not clearly identified presumably atrophic . No dilated bowel loops or bowel wall thickening. Moderate stool volume is present throughout the colo n. No acute GI process seen. No free air, free fluid or inflammatory stranding. No hernia, mass or b ulky lymphadenopathy. No acute bone finding confirmed. Approximately 20% wedge compression of the L1 body is present with p osterior wall height preserved. No acute fracture line seen. This is favored to be chronic but can be correlated with any localizing symptoms to the thoracolumbar junction. Patient has slight anterior s ubluxation of L4 on L5. Advanced degenerative disc disease is present spanning L2-3 through the L5-S1 level. No pelvic or hip fracture identifiable. IMPRESSION: Contrast enhanced CT abdomen and pelvis showing no acute or emergent finding finding. The 20% wedge compression of the L1 body is favored to be chronic but can be correlated with any symp toms localizing to the thoracolumbar junction.
[2021-08-15 15:02] LABS: Urine Blood 1+ (Negative); Urine Glucose Negative (Negative); Urine Protein Trace (Negative)
[2021-08-15] MEDS ORDERED: NA CHLORIDE 0.9% 500 ML ONE (15:13)
--- NOTE | 2021-08-15 16:12 | ER ---
Nurse's Notes [facility] Name: Zonia Spencer Age: 85 yrs Sex: Female : 1935 Arrival Date: 08/15/2021 Time: 11:25 Bed 4 Private MD: CHECO HATCH Diagnosis: Lumbar Spine Fracture;UTI Presentation: 08/15 11:55 Chief complaint: Pt's daughter states "she fell on Tuesday and I couldn't get her up aa5 from the floor so we called an ambulance and they helped her up but she's been complaining of belly pain ever since she fell". Pt's daughter also states "she's been scratching her left side (under left breast) and she has a rash there but that's been there since before the fall". Denies nausea/vomiting. 11:55 Onset of symptoms was July 2021. aa5 11:55 Acuity: YAMILETH 3 aa5 11:55 Coronavirus screen: At this time, the client does not indicate any symptoms associated aa5 with coronavirus-19. Ebola Screen: Patient negative for fever greater than or equal to 101.5 degrees Fahrenheit, and additional compatible Ebola Virus Disease symptoms. Initial Sepsis Screen: Does the patient meet any 2 criteria? No. Patient's initial sepsis screen is negative. Does the patient have a suspected source of infection? No. Patient's initial sepsis screen is negative. Risk Assessment: Do you want to hurt yourself or someone else? Unable to obtain. 11:55 Method Of Arrival: Wheelchair aa5 Historical: - Allergies: 12:00 No Known Allergies; aa5 - PMHx: 12:00 Dementia; High Cholesterol; Hypertension; Osteoporosis; TIA; aa5 - Immunization history:: Client reports receiving the 2nd dose of the Covid vaccine. - Social history:: Smoking status: Patient denies any tobacco usage or history of. Screenin:55 Abuse screen: Denies threats or abuse. Nutritional screening: No deficits noted. ap3 Tuberculosis screening: No symptoms or risk factors identified. Fall Risk No fall in past 12 months (0 pts). Secondary diagnosis (15 points) dementia, IV access (20 points). Ambulatory Aid- None/Bed Rest/Nurse Assist (0 pts). Gait- Normal/Bed Rest/Wheelchair (0 pts) Mental Status- Overestimates/Forgets Limitations (15 pts.). Total Navarrete Fall Scale indicates High Risk Score (45 or more points). Fall prevention measures have been instituted. Side Rails Up X 2 Placed Close to Nursing Station Frequent Obs/Assessments Occuring Family Present and informed to notify staff if the need to leave the bedside As available patient and family educated on Fall Prevention Program and Strategies. Assessment: 12:54 General: Appears in no apparent distress. Behavior is calm, cooperative. Pain: ap3 Complains of pain in abdomen Pain began gradually, 1 day ago. Neuro: Level of Consciousness is awake, alert, obeys commands, Oriented to person, place, time, situation, Speech is normal. Cardiovascular: Capillary refill < 3 seconds Patient's skin is warm and dry. Respiratory: Airway Respiratory effort is even, unlabored. GI: Bowel sounds present X 4 quads. Abd is soft Reports lower abdominal pain, upper abdominal pain, Patient currently denies change in bowel habbits. Vital Signs: 11:55 BP 147 / 66; Pulse 66; Resp 18 S; Temp 97.6(TE); Pulse Ox 96% on R/A; Weight 66.22 kg aa5 (R); Height 5 ft. 3 in. (160.02 cm) (R); 12:55 BP 133 / 81; Pulse 64; Resp 18; Pulse Ox 95% on R/A; ap3 14:58 BP 158 / 67; Pulse 67; Resp 18; Pulse Ox 97% on R/A; ap3 11:55 Body Mass Index 25.86 (66.22 kg, 160.02 cm) aa5 ED Course: 11:25 Patient arrived in ED. as 11:25 CHECO HATCH is Private Physician. as 12:00 Rocael Hurd, MINO is Primary Nurse. jl7 12:00 Arm band placed on. aa5 12:00 Patient placed in an exam room, on a stretcher. aa5 12:02 Valente Murguia PA is PHCP. jmm 12:02 Merritt Gorman MD is Attending Physician. jmm 12:20 Triage completed. aa5 12:55 Patient has correct armband on for positive identification. Bed in low position. Call ap3 light in reach. Side rails up X2. Adult w/ patient. Pulse ox on. NIBP on. Door closed. Noise minimized. Warm blanket given. 13:36 CT Abd/Pelvis - IV Contrast Only In Process Unspecified. EDMS 14:59 Speci-cath kit inserted, using sterile technique, 16 Fr., specimen obtained. returned ap3 clear yellow urine. Patient tolerated well. 15:00 Inserted saline lock: 22 gauge in right antecubital area, using aseptic technique. ap3 Blood collected. 16:31 No provider procedures requiring assistance completed. IV discontinued, intact, ap3 bleeding controlled, No redness/swelling at site. Pressure dressing applied. Administered Medications: 14:59 Drug: NS 0.9% 500 ml Route: IV; Rate: bolus; Site: right antecubital; ap3 16:01 Drug: Rocephin (cefTRIAXone) 1 grams Route: IV; Rate: calculated rate; Site: right jl7 antecubital; Outcome: 16:12 Discharge ordered by MD. jmmarily 16:31 Discharged to home via wheelchair, with family. ap3 16:31 Condition: good 16:31 Discharge instructions given to patient, family, Instructed on discharge instructions, follow up and referral plans. medication usage, Demonstrated understanding of instructions, follow-up care, medications, Prescriptions given X 1. 16:32 Patient left the ED. ap3 Signatures: Dispatcher [employer] EDMS Valente Murguia PA PA jmm Martinez, Amelia as Calderon, Audri, RN RN aa5 Rocael Hurd RN RN jl7 Rabia Daniels RN RN ap3 Corrections: (The following items were deleted from the chart) 12:23 11:55 Chief complaint: Pt's daughter states "she fell on Tuesday and I couldn't get her aa5 up from the floor so we called an ambulance and they helped her up but she's been complaining of belly pain ever since she fell". Pt's daughter also states "she's been scratching her left side (under left breast) and she has a rash there but that's been there since before the fall". aa5
--- NOTE | 2021-08-15 16:12 | EDPHYS ---
Physician Documentation [facility] Name: Zonia Spencer Age: 85 yrs Sex: Female : 1935 Arrival Date: 08/15/2021 Time: 11:25 Bed 4 Private MD: [facility]ATCH ED Physician Merritt Gorman HPI: 08/15 12:00 This 85 yrs old Female presents to ER via Wheelchair with complaints of jmm Abdominal Pain. 12:00 The patient presents with abdominal pain. Onset: The symptoms/episode began/occurred jmm today. The symptoms do not radiate. The symptoms are described as achy. Modifying factors: The symptoms are alleviated by nothing, the symptoms are aggravated by nothing. This is a 85-year-old female with history of dementia, hyperlipidemia, hypertension, osteoporosis, TIA the presents emerged department with complaints of lower abdominal pain and some dysuria beginning over the past day. Daughter states that the patient has had multiple falls over the past week and attributes them to dementia.. Historical: - Allergies: 12:00 No Known Allergies; aa5 - PMHx: 12:00 Dementia; High Cholesterol; Hypertension; Osteoporosis; TIA; aa5 - Immunization history:: Client reports receiving the 2nd dose of the Covid vaccine. - Social history:: Smoking status: Patient denies any tobacco usage or history of. ROS: 12:00 Constitutional: Negative for fever, chills, and weight loss, Cardiovascular: Negative jmm for chest pain, palpitations, and edema, Respiratory: Negative for shortness of breath, cough, wheezing, and pleuritic chest pain. 12:00 Abdomen/GI: Positive for abdominal pain. 12:00 All other systems are negative. Exam: 12:00 Constitutional: This is a well developed, well nourished patient who is awake, alert, jmm and in no acute distress. Head/Face: atraumatic. Eyes: EOMI, no conjunctival erythema appreciated ENT: Moist Mucus Membranes Neck: Trachea midline, Supple Chest/axilla: Normal chest wall appearance and motion. Cardiovascular: Regular rate and rhythm. No edema appreciated Respiratory: Normal respirations, no respiratory distress appreciated Abdomen/GI: Non distended, soft Back: Normal ROM Skin: General appearance color normal MS/ Extremity: Moves all extremities, no obvious deformities appreciated, no edema noted to the lower extremities Neuro: Awake and alert, normal gait Psych: Behavior is normal, Mood is normal, Patient is cooperative and pleasant 12:00 Abdomen/GI: Inspection: Palpation: soft, mild abdominal tenderness, in the suprapubic area. Vital Signs: 11:55 BP 147 / 66; Pulse 66; Resp 18 S; Temp 97.6(TE); Pulse Ox 96% on R/A; Weight 66.22 kg aa5 (R); Height 5 ft. 3 in. (160.02 cm) (R); 12:55 BP 133 / 81; Pulse 64; Resp 18; Pulse Ox 95% on R/A; ap3 14:58 BP 158 / 67; Pulse 67; Resp 18; Pulse Ox 97% on R/A; ap3 11:55 Body Mass Index 25.86 (66.22 kg, 160.02 cm) aa5 MDM: 12:11 Patient medically screened. [facility] 16:11 Data reviewed: vital signs, nurses notes. Counseling: I had a detailed discussion with [facility] the patient and/or guardian regarding: the historical points, exam findings, and any diagnostic results supporting the discharge/admit diagnosis, lab results, radiology results, the need for outpatient follow up, to return to the emergency department if symptoms worsen or persist or if there are any questions or concerns that arise at home. Refusal of service: The patient/guardian displays adequate decision making capability and despite a detailed discussion of alternatives, benefits, risks, and consequences refuses: Admission to the hospital for further work-up and treatment. 08/15 12:21 Order name: Basic Metabolic Panel; Complete Time: 13:08 [facility] 08/15 12:21 Order name: CBC with Diff; Complete Time: 12:55 [facility] 08/15 12:21 Order name: Hepatic Function; Complete Time: 13:08 [facility] 08/15 12:21 Order name: Lipase; Complete Time: 13:08 [facility] 08/15 12:22 Order name: Urine Culture [facility] 08/15 15:01 Order name: Urine Dipstick-Ancillary; Complete Time: 15:29 [facility] 08/15 12:21 Order name: IV Saline Lock; Complete Time: 12:53 [facility] 08/15 12:21 Order name: Labs collected and sent; Complete Time: 12:53 [facility] 08/15 12:21 Order name: Urine Dipstick-Ancillary (obtain specimen); Complete Time: 15:00 [facility] 08/15 13:16 Order name: CT Abd/Pelvis - IV Contrast Only; Complete Time: 14:14 [facility] Administered Medications: 14:59 Drug: NS 0.9% 500 ml Route: IV; Rate: bolus; Site: right antecubital; ap3 16:01 Drug: Rocephin (cefTRIAXone) 1 grams Route: IV; Rate: calculated rate; Site: right jl7 antecubital; Disposition: 08/16 16:18 Co-signature as Attending Physician, Merritt Gorman MD I agree with the assessment and iker plan of care. Disposition Summary: 08/15/21 16:12 Discharge Ordered Location: Home [facility] Condition: Stable [facility] Diagnosis - Lumbar Spine Fracture [facility] - UTI [facility] Followup: [facility] - With: Private Physician - When: 2 - 3 days - Reason: Recheck today's complaints, Continuance of care, Re-evaluation by your physician Discharge Instructions: - Discharge Summary Sheet [facility] - Urinary Tract Infection, Adult [facility] - Lumbar Spine Fracture [facility] Forms: - Medication Reconciliation Form [facility] - Thank You Letter [facility] - Antibiotic Education [facility] - Prescription Opioid Use [facility] Prescriptions: - Cephalexin 500 mg Oral Capsule - take 1 capsule by ORAL route every 8 hours for 10 days; 30 capsule; Refills: 0, [facility] Product Selection Permitted Signatures: Dispatcher [employer] Merritt Garcia MD MD cha Mickail, Joel, PA PA jmm Calderon, Audri RN RN aa5 Rocael Hurd RN RN jl7 Rabia Daniels RN RN ap3 Corrections: (The following items were deleted from the chart) 08/15 14:37 14:[address] [facility]
[2021-08-15] MEDS ORDERED: CEFTRIAXONE 1000 MG/VIAL ONE (16:24)
[2021-08-15 16:46] VITALS: TEMP 97.6
[2021-08-15 16:48] VITALS: BP 158/67; O2SAT 97
== END 2021-08-15 16:32 | disposition home or self-care (01) ==
LOC: ER 11:23
DX: N39.0 Urinary tract infection, site not specified (principal); S32.019A Unspecified fracture of first lumbar vertebra, initial encounter for closed fracture; I10 Essential (primary) hypertension; F03.90 Unspecified dementia, unspecified severity, without behavioral disturbance, psychotic disturbance, mood disturbance, and anxiety; Z86.73 Personal history of transient ischemic attack (TIA), and cerebral infarction without residual deficits
CPT/HCPCS: 87088; 85025; 87086; 80048; 36415; 80076; 87077; 87186; 81003; 83690; 74177; 96374; 99284; Q9967; J7040

== ENCOUNTER 2022-04-01 07:49 | Emergency (ER) | payer OTHER ==
--- OUTSIDE RECORDS SUMMARY | 2022-04-01 07:53 | XMS REPORT | Continuity of Care Document ---
:1935 Author Organization [facility] t Address [address] [place] [address] Care Team Providers Name Role Phone GUANACO HATCH Primary Care Physician Unavailable Ramakrishna Attending Clinician Unavailable Kvng Clemens MD Attending Clinician KVNG CLEMENS Attending Clinician Unavailable KVNG CLEMENS Attending Clinician Unavailable Doctor Unassigned, Name Attending Clinician Unavailable José Gorman DO Attending Clinician Mitul GORMAN Attending Clinician Unavailable Jacinta DAS Attending Clinician Unavailable Jacinta DAS Admitting Clinician Unavailable Payers Payer Name Policy Type Policy Number Effective Date Expiration Date S ource Problems Condition Condition Condition Status Onset Resolution Last Treating Co mments Source Name Details Category Date Date Treatment Clinician Date No known No known Disease Unive rs active active ity of problems problems [facility] Allergies, Adverse Reactions, Alerts Allergy Allergy Status Severity Reaction(s) Onset Inactive Treating Comm ents Source Name Type Date Date Clinician TREE NUT DRUG Active Swelling Univer s INGREDI 05-11 ity of 00:00: [address] Tree Nut Propensi Active Swelling Only with U nivers ty to 05-11 "mixed ity of adverse 00:00: nuts". [place] reaction 00 Medical s Branch Social History Social Habit Start Date Stop Date Quantity Comments Source History of Smoker University of tobacco use [facility] Exposure to Not sure University of SARS-CoV-2 [place] Medical (event) Branch Sex Assigned At [facility] Co llege of Medicine Tobacco use and 2020-10-14 2020-10-14 Never used Universit y of exposure 00:00:00 00:00:00 [facility] Branch Alcohol intake 2020-03-11 2020-03-11 Ex-drinker [facility] Col lege of 00:00:00 00:00:00 (finding) Medicine Tobacco Comment 2016-04-16 2016-04-16 stopped 3 yrs [facility] of 00:00:00 00:00:00 ago Medicine Smoking Status Start Date Stop Date Source Former smoker 2020-03-11 00:00:00 2020-03-11 00:00:00 [facility] ollege of Medicine Medications Ordered Filled Start Stop Current Ordering Indication Dosage Frequency Signature Comments Components Source Medication Medication Date Date Medication? Clinician (SIG) Name Name levETIRAcet Yes [id number] 1000mg Take 1 Univers am 1,000 mg 4-08 tablet by ity of tablet 00:00: mouth 2 (two) Medical times Branch daily. divalproex 2021-0 Yes [id number] 250mg Take 1 Univers ER 250 mg 4-08 tablet by ity o f 24 hr 00:00: mouth [place] tablet 00 every 24 Medical (twenty-fo Branch ur) hours. levETIRAcet 2021-0 Yes [id number] 1000mg Take 1 Univers am 1,000 mg 4-08 tablet by ity of tablet 00:00: mouth 2 [place] 00 (two) Medical times Branch daily. divalproex 2021-0 Yes [id number] 250mg Take 1 Univers ER 250 mg 4-08 tablet by ity o f 24 hr 00:00: mouth [place] tablet 00 every 24 Medical (twenty-fo Branch ur) hours. LEVETIRACET 2021-0 2021- No Take 1 Uni vers AM 1,000 mg 3-08 04-08 tablet by it y of tablet 00:00: 00:00 mouth [place] 00 :00 twice Medical daily Branch DIVALPROEX 2-0 2021- No [id number] TAKE 1 Univers ER 250 mg 3-08 04-08 TABLET BY ity of 24 hr 00:00: 00:00 MOUTH [place] tablet 00 :00 EVERY 24 Medical HOURS Branch LEVETIRACET 2021-0 2021- No Take 1 Uni vers AM 1,000 mg 3-08 04-08 tablet by it y of tablet 00:00: 00:00 mouth [place] 00 :00 twice Medical daily Branch DIVALPROEX 0 2021- No [id number] TAKE 1 Univers ER 250 mg 01-05-08 TABLET BY ity of 24 hr 00:00: 00:00 MOUTH [place] tablet 00 :00 EVERY 24 Medical HOURS Branch aspirin-james 2019-10 Yes 162mg Take 162 U nivers cium 2-15 mg by ity of carbonate 08:26: mouth. [place] 81 mg-300 44 Medical mg Branch calcium(777 mg) Tab foLIC acid 2019-10 Yes 1mg Take 1 mg Un antoinette 1 mg tablet 2-15 by mouth. ity of 08:26: [address] Branch Potassium 2019-10 Yes Take by Univ ers 99 mg Tab 2-15 mouth. ity of 08:26: [address] Branch aspirin-james 2019-10 Yes 162mg Take 162 U nivers cium 2-15 mg by ity of carbonate 08:26: mouth. [place] 81 mg-300 44 Medical mg Branch calcium(777 mg) Tab foLIC acid 2019-10 Yes 1mg Take 1 mg Un antoinette 1 mg tablet 2-15 by mouth. ity of 08:26: [address] Branch Potassium 2019-10 Yes Take by Univ ers 99 mg Tab 2-15 mouth. ity of 08:26: [address] Branch alendronate 2019-10 Yes Univer s 70 mg 2-14 ity of tablet 00:00: [place] [facility] Branch alendronate 2019-10 Yes Univer s 70 mg 2-14 ity of tablet 00:00: Medical Branch rivastigmin 2019-10- No APPLY 1 Un antoinette e 4.6 mg/24 1-25 -08 PATCH ity of hr patch 00:00: 00:00 TOPICALLY [place] as 00 :00 EVERY 24 Medical HOURS Branch rivastigmin 2019-10- No APPLY 1 Un antoinette e 4.6 mg/24 1-25 04-08 PATCH ity of hr patch 00:00: 00:00 TOPICALLY [place] as 00 :00 EVERY 24 Medical HOURS Branch hydroCHLORO 2019-10 Yes 12.5mg Take 12.5 Univers thiazide 1-16 mg by ity of 12.5 mg 00:00: mouth [place] tablet 00 daily. Medical Branch lisinopriL 2020-1 Yes 40mg Take 40 mg U nivers 40 mg 1-16 by mouth ity of tablet 00:00: daily. Medical Branch hydroCHLORO 2020-1 Yes 12.5mg Take 12.5 Univers thiazide 1-16 mg by ity of 12.5 mg 00:00: mouth [place] tablet 00 daily. Medical Branch lisinopriL 2020- Yes 40mg Take 40 mg U nivers 40 mg 1-16 by mouth ity of tablet 00:00: daily. Medical Branch cloNIDine 2020-1 Yes Univers 0.1 mg 1-04 ity of tablet 00:00: [place] [facility] cloNIDine 2020- Yes Univers 0.1 mg 1-04 ity of tablet 00:00: [place] [facility] carvediloL 2020- Yes Univers 6.25 mg 0-02 ity of tablet 00:00: [place] [facility] carvediloL 2019- Yes Univers 6.25 mg 0-02 ity of tablet 00:00: [place] [facility] Branch pravastatin 2020-0 Yes 20mg Take 20 mg Univers 20 mg 9-25 by mouth ity of tablet 00:00: at [place] 00 bedtime. Medical Branch pravastatin 2020-0 Yes 20mg Take 20 mg Univers 20 mg 9-25 by mouth ity of tablet 00:00: at [place] 00 bedtime. Medical Branch Rake-3 2020-0 Yes Take by [facility] Fatty Acids 5-12 mouth. Colleg e (FISH OIL 14:38: of BURP-LESS 15 Medicin OR) e aspirin 81 2020-0 Yes 162mg Take 162 [facility] MG tablet 5-12 mg by College 14:38: mouth of 15 daily. Medicin e folic acid 2020-0 Yes 1mg Take 1 mg [facility] (FOLVITE) 1 5-12 by mouth Inder ege MG tablet 14:38: daily. of 15 Medicin e pravastatin 2020-0 Yes 20mg Take 20 mg [facility] (PRAVACHOL) 5-12 by mouth Inder ege 20 MG 14:38: daily. of tablet 15 Medicin e levETIRAcet 2020-0 Yes 1000mg Take 1,000 [facility] am (KEPPRA) 5-12 mg by College 1000 MG 00:00: mouth of TABS 00 every 12 Medicin hours. e levetiracet 2018-10 2020- No 750mg Take 1 Tab [facility] am (KEPPRA) 2-03 05-12 by mouth Col lege 750 MG 00:00: 00:00 two times of tablet 00 :00 daily. Medicin e lisinopril 2018-10 Yes TAKE 1 [facility] (PRINIVIL, 0-29 TABLET BY Inder guillen ZESTRIDella) 40 00:00: MOUTH ONCE of MG tablet 00 DAILY Medicin e hydrochloro 2018-10 Yes TAKE 1 [facility] thiazide 0-29 TABLET BY Charan jiang 12.5 MG 00:00: MOUTH ONCE of TABS 00 DAILY Medicin e alendronate 2018-10 Yes TAKE 1 [facility] (FOSAMAX) 0-22 TABLET BY Joni sewell 70 MG 00:00: MOUTH ONCE of tablet 00 A WEEK Medicin e carvedilol 2018-10 Yes TAKE 1 [facility] (COREG) 0-18 TABLET BY [place] 6.25 MG 00:00: MOUTH of tablet 00 TWICE Medicin DAILY WITH e FOOD clonidine Yes IF BLOOD [facility] (CATAPRES) 9-18 PRESSURE Colle ge 0.1 MG 00:00: IS HIGHER of tablet 00 THAN 170 Medicin 100 TAKE e ONE TABLET BY MOUTH EVERY 8 HOURS NEEDED (THREE TIMES A DAY) Rake-3 Yes Take by Juice Fatty Acids 8- mouth. Charan jiang (FISH OIL 15:12: of BURP-LESS 05 Medicin OR) e folic acid Yes 1mg Take 1 mg [facility] (FOLVITE) 1 8- by mouth Inder ege MG tablet 15:12: daily. of 05 Medicin e pravastatin Yes 20mg Take 20 mg [facility] (PRAVACHOL) 8-22 by mouth Inder ege 20 MG 15:12: daily. of tablet 05 Medicin e rivastigmin 2019- No 4.5mg Take 4.5 Juice e (EXELON) 8-22 08-22 mg by [place] 4.5 MG 15:12: 00:00 mouth two of capsule 05 :00 times Medicin daily. e aspirin 81 Yes 162mg Take 162 [facility] MG tablet 8-22 mg by [place] 15:11: mouth of 44 daily. Medicin e Cyanocobala 2019- No Take by B aylor min 06-21 08- mouth. College (VITAMIN B 15:11: 00:00 of 12 OR) 32 :00 Medicin e buPROPion 2019- No 100mg Take 100 [facility] (WELLBUTRIN 06-21 08- mg by AMANDA Michelle) 15:11: 00:00 mouth two of 100 MG SR 26 :00 times Medicin tablet daily. e B Complex 2019- No Take by [place] faby Vitamins (B 06-21- mouth. Colle ge COMPLEX 1 15:11: 00:00 of OR) 14 :00 Medicin e levetiracet Yes 500mg Take 1 Tab Juice am (KEPPRA) 06-21 by mouth Inder ege 500 MG 00:00: two times of tablet 00 daily. Medicin e levetiracet 2019- No 250mg Take 250 Juice am (KEPPRA) 30 08- mg by Charan jiang 250 MG 00:00: 00:00 mouth. of tablet 00 :00 Medicin e rivastigmin Yes APPLY 1 [place] faby e 4.6 7-19 PATCH College MG/24HR 00:00: TOPICALLY of PT24 00 EVERY 24 Medicin HOURS e rivastigmin Yes APPLY 1 [place] faby e 4.6 7-19 PATCH College MG/24HR 00:00: TOPICALLY of PT24 00 EVERY 24 Medicin HOURS e diflupredna 2019- No 1[drp] Place 1 [facility] te 706-21 Drop into [place] (DUREZOL) 00:00: 00:00 the left of 0.05 % 00 :00 eye 3 Medicin ophthalmic times e emulsion daily. Immunizations Ordered Filled Immunization Date Status Comments [facility] e Immunization Name Name SARS-COV-2 COVID-19 2020-12-31 Completed Unive rsity of PFIZER VACCINE 00:00:00 [facility] SARS-COV-2 COVID-19 2020-12-31 Completed Unive rsity of PFIZER VACCINE 00:00:00 [facility] SARS-COV-2 COVID-19 2020-12-10 Completed Unive rsity of PFIZER VACCINE 00:00:00 [facility] SARS-COV-2 COVID-19 2020-12-10 Completed Unive rsity of PFIZER VACCINE 00:00:00 [facility] Vital Signs Vital Name Observation Time Observation Value Comments Source Systolic blood 2022-02-05 16:56:00 80 mm[Hg] [facility] [place] pressure [facility] Branch Diastolic blood 2022-02-05 16:56:00 51 mm[Hg] Unive rsity of [place] pressure [facility] Branch Heart rate 2022-02-05 16:54:00 52 /min [facility] Oxygen saturation 2022-02-05 16:54:00 99 /min [facility] Ar[facility] blood Medical Br anch by Pulse oximetry Systolic blood 2020-03-11 14:36:00 128 mm[Hg] [facility] of pressure Medicine Diastolic blood 2020-03-11 14:36:00 70 mm[Hg] [facility] of pressure Medicine Heart rate 2020-03-11 14:36:00 70 /min [facility] ollege of Medicine Body height 2020-03-11 14:36:00 160 cm [facility] ol[facility] of Medicine Body weight 2020-03-11 14:36:00 66.225 kg [facility] ollege of Medicine BMI 2020-03-11 14:36:00 25.86 kg/m2 [facility] ollege of Medicine Systolic blood 2020-03-11 14:36:00 128 mm[Hg] [facility] College of pressure Medicine Diastolic blood 2020-03-11 14:36:00 70 mm[Hg] [facility] of pressure Medicine Heart rate 2020-03-11 14:36:00 70 /min [facility] ollege of Medicine Body height 2020-03-11 14:36:00 160 cm [facility] C ollege of Medicine Body weight 2020-03-11 14:36:00 66.225 kg [facility] ollege of Medicine BMI 2020-03-11 14:36:00 25.86 kg/m2 [facility] ollege of Medicine Systolic blood 2019-06-21 14:59:00 180 mm[Hg] [facility] College of pressure Medicine Diastolic blood 2019-06-21 14:59:00 88 mm[Hg] [facility] of pressure Medicine Heart rate 2019-06-21 14:59:00 68 /min [facility] C ollege of Medicine Body height 2019-06-21 14:59:00 160 cm [facility] ollege [facility] Body weight 2019-06-21 14:59:00 64.411 kg [facility] [place] [place] BMI 2019-06-21 14:59:00 25.15 kg/m2 [facility] Systolic blood 2019-06-21 14:59:00 180 mm[Hg] [facility] pressure Medicine Diastolic blood 2019-06-21 14:59:00 88 mm[Hg] [facility] pressure Medicine Heart rate 2019-06-21 14:59:00 68 /min [facility] ollege [facility] Body height 2019-06-21 14:59:[address] [facility] [place] [place] Body weight 2019-06-21 14:59:00 64.411 kg [facility] BMI 2019-06-21 14:59:00 25.15 kg/m2 [facility] Procedures This patient has no known procedures. Plan of Care Planned Activity Planned Date Details Comments Source Future Scheduled Test MEDICARE AWV [code = [employer] [facility] MEDICARE AWV] Medicine Future Scheduled Test TETANUS SHOT (ADULT) [facility] [code = TETANUS SHOT Medicin e (ADULT)] Future Scheduled Test BMI FOLLOW UP PLAN [facility] [code = BMI FOLLOW UP Medici ne PLAN] Future Scheduled Test FALL SCREEN [code = [facility] of FALL SCREEN] Medicine Future Scheduled Test OSTEOPOROSIS SCREENING [facility] [code = OSTEOPOROSIS Medicin e SCREENING] Future Scheduled Test PNEUMOVAX >=65 (PPSV23) [facility] [code = PNEUMOVAX >=65 Medic ine (PPSV23)] Future Scheduled Test PREVNAR >= 65 (PCV13) [facility] [code = PREVNAR >= 65 Medici ne (PCV13)] Future Scheduled Test FLU VACCINE > 6 MONTHS [facility] [code = FLU VACCINE > 6 Medi cine MONTHS] Future Scheduled Test TETANUS SHOT (ADULT) [facility] [code = TETANUS SHOT Medicin e (ADULT)] Future Scheduled Test BMI FOLLOW UP PLAN [facility] [code = BMI FOLLOW UP Medici ne PLAN] Future Scheduled Test MEDICARE AWV (Initial) [facility] [code = MEDICARE AWV Medicin e (Initial)] Future Scheduled Test FALL SCREEN [code = [facility] of FALL SCREEN] Medicine Future Scheduled Test OSTEOPOROSIS SCREENING [facility] [code = OSTEOPOROSIS Medicin e SCREENING] Future Scheduled Test PNEUMOVAX >=65 (PPSV23) [facility] [code = PNEUMOVAX >=65 Medic ine (PPSV23)] Future Scheduled Test PREVNAR >= 65 (PCV13) [facility] [code = PREVNAR >= 65 Medici ne (PCV13)] Future Scheduled Test FLU VACCINE > 6 MONTHS [facility] [code = FLU VACCINE > 6 Medi cine MONTHS] Encounters Start End Encounter Admission Attending Care Care Encounter Source Date/Time Date/Time Type Type Clinicians Facility Department ID 2021-11-25 Outpatient Ramakrishna, [facility] [id number] Common 14:37:25 Jyoti [facility] 2022-02-23 2022-02-23 amb[facility] [id number] Common 00:00:00 00:00:00 [facility] 2022-02-05 2022-02-05 Office Jayleen [facility] [id number] Univers 11:20:00 12:18:23 Visit Andrew [facility] [id number] [place] [id number] Mitch as DAVID?BLEA [phone] [address] MEDICAL OFFICE BUILDING 2022-02-05 2022-02-05 Outpatient ANDREW [facility] [id number] Univers 11:20:00 12:18:23 ANDREW CLEMENS mayur [facility] 2021-11-18 2021-11-18 ambulatory [facility] [id number] Common 00:00:00 00:00:00 [facility] 2021-02-17 2021-02-17 Refradha Clemens [facility] [id number] 00:00:00 00:00:00 Andrew Diaz [id number] [place] [id number] Professio [phone] [facility] 2021-01-05 2021-01-05 [facility] [id number] 00:00:00 00:00:00 Andrew Diaz [id number] [place] [id number] Professio [id number] [address] 2020-12-01 2020-12-01 Telephone Jayleen HIROLAND [id number] 00:00:00 00:00:00 Andrew Diaz [id number] [place] [id number] Professio [phone] [address] 2020-10-21 2020-10-21 Orders Doctor RADHIKA [id number] 00:00:00 00:00:00 Only Unassigned, NASIR [id number] [place] 4.2.7.2.686 [id number] 2020-10-14 2020-10-14 Office Jayleen HIROLAND [id number] 08:06:43 08:55:39 Visit Andrew Diaz [id number] [place] 4.2.7.2.686 Professio [phone] [address] 2020-03-11 2020-03-11 Office NARGIS Gorman [id number] [facility] 08:58:57 10:06:25 Visit Nicolaas AMBULATOR [id number] [place] Y 0.2.7.2.686 of [id number] [facility] 800 e 2020-03-11 2020-03-11 Office NARGIS Groman [id number] 08:58:57 10:06:25 Visit Nicolaas AMBULATOR [id number] José Y 0.2.7.2.686 [phone] 800 2019-06-21 2019-06-21 Office NARGIS Gorman [id number] [facility] 08:56:22 12:28:39 Visit Nicolaas AMBULATOR [id number] College José Y 0.2.7.2.686 of [phone] [facility] 800 e 2019-06-21 2019-06-21 Office NARGIS Gorman [id number] 08:56:22 12:28:39 Visit Natalya AMBULATOR [id number] José Y 0.2.7.2.686 [id number] Results Test Description Test Time Test Comments Results Result [facility] e Comments CT, CTANGIO BRAIN 2019-11-21 FINAL REPORT PATIENT 07:33:00 ID: [id number] CT, CAROTID, ANGIO, CT, CTANGIO BRAIN HISTORY: [...] measured as a percentage relative to the [place] artery distal to the stenosis (NASCET). CERVICAL [...] Cannon Verified Date/Time: 11/21/2019 07:33:55 Reading Location: [facility] Reading Room [address] [place] [address] , CAROTID, ANGIO 2019-11-21 FINAL REPORT PATIENT 07:33:00 ID: [id number] CT, CAROTID, ANGIO, CT, CTANGIO BRAIN HISTORY: [...] measured as a percentage relative to the [place] artery distal to the stenosis (NASCET). CERVICAL [...] Cannon Verified Date/Time: 11/21/2019 07:33:55 Reading Location: [facility] Reading Room [address] [place] [address] -CREATININE 2019-11-20 10:29:00 Test Item Value Reference Range Interpretation Comme nts POC-CREATININE (BEAKER) (test 1.2 mg/dL 0.6-1.3 TESTED AT [facility] 7200 code = 1859) [facility] [id number] POC-EGFR (BEAKER) (test code = 43 mL/min/1.73M2 1860) EEG AWAKE AND [id number] 14:23:00Reason for exam:->Episode of unresponsiveness.DATE OF REPORT: 05/29/2019NAME: Enoc MixonMRN: [id number] of : 4ACC: [id number]: [id number] time: 12:36 PMStop time: 13:00 PM ICD-10: R56.9 CPT Code: 65251 HISTORY: Enoc Mixon is a 83 y.o. [...] recorded with 32 input channels on a AcEmpire system, reviewed with bipolar and referential montages [...] MDNeurophysiology Fellow Yuliet Arellano MD Attending Neurophysiologist [facility] [place] GLOBIN [id number] 10:12:00 Test Item Value Reference Range Interpretation Comments HEMOGLOBIN A1C (BEAKER) (test code = 4.8 % 4.3-6.1 368) CBC W/PLT COUNT & AUTO [id number] 08:26:00 Test Item Value Reference Range Interpretation [...] PERCENT (BEAKER) (test code = 2801) C-REACTIVE [id number] 06:38:00 Test Item Value Reference Range Interpretation Comments C-REACTIVE PROTEIN (BEAKER) (test 0.11 mg/dL 0.00-0.50 code = 676) BASIC METABOLIC [id number] 06:37:00 Test Item Value Reference Range Interpretation [...] S NOT APPLICABLE FOR DIALYSIS PATIEN TS. HEPATIC FUNCTION [id number] 06:37:00 Test Item Value Reference Range Interpretation [...] (test code = 9 U/L 6-55 347) TSH/FREE T4 IF [id number] 06:34:00 Test Item Value Reference Range Interpretation Comments THYROID STIMULATING HORMONE 1.83 uIU/mL 0.35-4.94 (BEAKER) (test code = 772) VITAMIN B12 AND [id number] 04:46:00 Test Item Value Reference Range Interpretation Comments VITAMIN B12 (BEAKER) (test code = > pg/mL 213-816 H 774) FOLATE (BEAKER) (test code = 362) 19.6 ng/mL >=7.0 MR, MRA, BRAIN, WITHOUT [id number] 02:18:00Reason for exam:->Ischemic Stroke EvaluationFINAL REPORT MRA head and neck without contrast. CLINICAL HISTORY: Ischemic stroke evaluation. COMPARISON: None. TECHNIQUE: Two- and three-dimensional onli-cw-bogmco MRA images of the intra- and extracranial carotid and vertebral arterial circulations were obtained, from which maximal intensity projection 3-D reconstructions were created. FINDINGS: MRA neck: There is no vesselocclusion or NASCET-quantifiable stenosis in the extracranial carotid or vertebral arterial circulations. Flow is antegrade in both vertebral arteries. MRA [place]: There is no vessel occlusion [...] Americo Reece Verified Date/Time: 05/28/2019 02:18:00 MR, MRA, NECK, WITHOUT IV [id number] 02:18:00Reason for exam:->Ischemic Stroke EvaluationFINAL REPORT MRA head and neck without contrast. CLINICAL HISTORY: Ischemic stroke evaluation. COMPARISON: None. TECHNIQUE: Two- and three-dimensional ybrv-lk-zdicrn MRA images of the intra- and extracranial carotid and vertebral arterial circulations were obtained, from which maximal intensity projection 3-D reconstructions were created. FINDINGS: MRA neck: There is no vesselocclusion or NASCET-quantifiable stenosis in the extracranial carotid or vertebral arterial circulations. Flow is antegrade in both vertebral arteries. MRA [place]: There is no vessel occlusion [...] Verified Date/Time: 05/28/2019 02:18:00 MR, BRAIN, WITHOUT [id number] 02:09:00Reason for exam:->Ischemic Stroke EvaluationFINAL REPORT Exam: [...] at 2:07 AM 05/28/2019. Signed: Americo Reece MDReport Verified Date/Time: 05/28/2019 02:09:16 LIPID [id number] 00:06:00 Test Item Value Reference Range Interpretation [...] 160-189 Very High >=190URINALYSIS WITH MICROSCOPIC IF [id number] 00:01:00 Test Item Value Reference Range Interpretation [...] 0.2-1.0 = 463) SOURCE(BEAKER) (test code = 9595) CBC W/PLT COUNT & AUTO [id number] 23:49:00 Test Item Value Reference Range Interpretation [...]
[2022-04-01 08:19] LABS: Absolute Lymphocytes (CBC) 1.6 K/uL (0.7-4.9); Hematocrit 34.6 % (36.0-45.0); Lymphocytes % 29.8 % (15.3-44.8); MPV 9.6 fL (7.6-11.3); RBC Red Blood Cell Count 3.54 M/uL (3.86-4.86)
[2022-04-01 08:24] LABS: Protime INR 1.04
[2022-04-01 08:37] LABS: Potassium 3.5 mmol/L (3.5-5.1)
--- NOTE | 2022-04-01 08:42 | RAD REPORT ---
EXAM DESCRIPTION: CT - CTHCSPWOC - 04/01/2022 8:27 am CLINICAL HISTORY: Trauma, head and neck injury. fall/ head injury COMPARISON: No comparisons TECHNIQUE: Axial 5 mm thick images of the head were obtained. Axial 2 mm thick images of the cervical spine were obtained with sagittal and coronal reconstruction images generated and reviewed. All CT scans are performed using dose optimization technique as appropriate and may include automated exposure control or mA/KV adjustment according to patient size. FINDINGS: CT HEAD WITHOUT CONTRAST: No acute hemorrhage, hydrocephalus or extra-axial collection is identified.No areas of brain edema or midline shift. Moderate chronic small vessel ischemic changes. Cerebral atrophy. Underpneumatized left mastoid.The calvarium is intact. Right sphenoid sinus thickening. Left parietal and occipital scalp contusion, CT CERVICAL SPINE WITHOUT CONTRAST: 3 millimeters of retrolisthesis of C5 on C6. Varying degrees of neural foraminal narrowing noted whic h is most advanced at C5-6 bilaterally. There is also severe on the left at C3-4. There is likely at least mild if not moderate central spinal stenosis at C5-6.No prevertebral soft tissues swelling is i dentified. Thyroid nodules noted. Aberrant right subclavian artery. Carotid artery calcifications. IMPRESSION: No acute intracranial or cervical spine findings.
--- NOTE | 2022-04-01 09:26 | RAD REPORT ---
EXAM DESCRIPTION: RAD - Tib Fib Left - 04/01/2022 9:13 am CLINICAL HISTORY: fall COMPARISON: No comparisons FINDINGS: No acute fracture. No malalignment. No significant focal degenerative changes. IMPRESSION: No acute osseous abnormality involving the tibia and fibula.
--- NOTE | 2022-04-01 09:26 | RAD REPORT ---
EXAM DESCRIPTION: RAD - Chest Single View - 04/01/2022 9:13 am CLINICAL HISTORY: TRAUMA COMPARISON: Chest Single View dated 07/15/2019; Chest Single View dated 05/27/2019; Chest Single View dated 12/29/2017; Chest Single View dated 06/17/2016 FINDINGS: Lines: None. Lungs: No evidence of edema or pneumonia. Pleural: No significant pleural effusions or pneumothorax. Cardiac: The heart size is within normal limits. Bones: No acute fractures. Plate and screw at the right mid humerus. Other: IMPRESSION: No acute cardiopulmonary disease.
--- NOTE | 2022-04-01 09:42 | EDPHYS ---
Physician Documentation [facility] Name: Zonia Spencer Age: 86 yrs Sex: Female : 1935 Arrival Date: 04/01/2022 Time: 07:51 Bed 13 Private MD: CHECO HATCH ED Physician Merritt Gorman HPI: 04/01 08:08 This 86 yrs old Female presents to ER via Wheelchair with complaints of Fall Injury, jh7 Head Injury Without LOC-Adult, Laceration. 08:08 Details of fall: The patient fell from an upright position, while standing. Onset: The jh7 symptoms/episode began/occurred just prior to arrival. Associated injuries: The patient sustained injury to the head, hematoma, laceration, Avulsion, left lower leg. Patient was standing in her room and stated that she suddenly fell. Her daughter immediately walked in the room and said the patient was getting up. Denies any LOC. Denies any pain at this time. Currently complains of laceration to the head and skin avulsion of the left lower leg. Takes a daily aspirin but denies any blood thinners.. Historical: - Allergies: 07:56 No Known Allergies; tw2 - Home Meds: 07:56 Vitamin C Oral [Active]; Iron CR 835 mg Oral cpER [Active]; alendronate 70 mg Oral tab tw2 1 tab once wkly [Active]; aspirin 81 mg Oral TbEC 2 tabs once daily [Active]; bupropion HCl 100 mg Oral TbER 1 tab once daily [Active]; carvedilol 25 mg Oral tab 1 tab 2 times per day [Active]; Exelon 9.5 mg/24 hr transdermal pt24 1 patch once daily [Active]; folic acid 1 mg Oral tab 1 tab once daily [Active]; Fish Oil 1,000 mg Oral cap twice a day [Active]; lisinopril Oral [Active]; multivitamin Oral tab daily [Active]; pravastatin 20 mg Oral tab 1 tab once daily [Active]; Vitamin B-12 1,000 mcg Oral tab daily [Active]; - PMHx: 07:56 Dementia; Osteoporosis; Hypertension; High Cholesterol; TIA; tw2 - Immunization history:: Client reports receiving the 2nd dose of the Covid vaccine, Last tetanus immunization: May 2017. - Social history:: Smoking status: Patient/guardian denies using tobacco, the patient reports quitting approximately 5 years ago. - Immunization history: Last tetanus immunization: May per pts daughter. ROS: 08:08 Constitutional: Negative for fever, chills, and weight loss, Eyes: Negative for injury, jh7 pain, redness, and discharge, ENT: Negative for injury, pain, and discharge, Neck: Negative for injury, pain, and swelling, Cardiovascular: Negative for chest pain, palpitations, and edema, Respiratory: Negative for shortness of breath, cough, wheezing, and pleuritic chest pain, Abdomen/GI: Negative for abdominal pain, nausea, vomiting, diarrhea, and constipation, Back: Negative for injury and pain, MS/Extremity: Negative for injury and deformity, Neuro: Negative for headache, weakness, numbness, tingling, and seizure. 08:08 Skin: Positive for avulsion, hematoma, laceration(s), Negative for cellulitis, erythema. 08:08 All other systems are negative. Exam: 08:12 Constitutional: This is a well developed, well nourished patient who is awake, alert, jh7 and in no acute distress. Eyes: Pupils equal round and reactive to light, extra-ocular motions intact. Lids and lashes normal. Conjunctiva and sclera are non-icteric and not injected. Cornea within normal limits. Periorbital areas with no swelling, redness, or edema. ENT: Nares patent. No nasal discharge, no septal abnormalities noted. Tympanic membranes are normal and external auditory canals are clear. Oropharynx with no redness, swelling, or masses, exudates, or evidence of obstruction, uvula midline. Mucous membranes moist. Neck: Trachea midline, no thyromegaly or masses palpated, and no cervical lymphadenopathy. Supple, full range of motion without nuchal rigidity, or vertebral point tenderness. No Meningismus. Chest/axilla: Normal chest wall appearance and motion. Nontender with no deformity. No lesions are appreciated. Cardiovascular: Regular rate and rhythm with a normal S1 and S2. No gallops, murmurs, or rubs. Normal PMI, no JVD. No pulse deficits. Respiratory: Lungs have equal breath sounds bilaterally, clear to auscultation and percussion. No rales, rhonchi or wheezes noted. No increased work of breathing, no retractions or nasal flaring. Abdomen/GI: Soft, non-tender, with normal bowel sounds. No distension or tympany. No guarding or rebound. No evidence of tenderness throughout. Back: No spinal tenderness. No costovertebral tenderness. Full range of motion. MS/ Extremity: Pulses equal, no cyanosis. Neurovascular intact. Full, normal range of motion. Neuro: Awake and alert, GCS 15, oriented to person, place, time, and situation. Cranial nerves II-XII grossly intact. Motor strength 5/5 in all extremities. Sensory grossly intact. Normal gait. 08:12 Head/face: Exam is negative for raccoon eyes, rash, Noted is hematoma, that is moderate, of the occipital area, a laceration(s), of the occipital area, tenderness, of the occipital area. 08:12 Skin: injury, avulsion(s), A moderate sized of the left leg. 08:26 ECG was reviewed by the Attending Physician. jh7 09:00 Skin: injury, laceration(s), the wound is approximately 5 cm(s), of the scalp, Jagged, jh7 gaping laceration over the occipital area and over a golf ball sized hematoma. The wound is difficult to approximate secondary to swelling.. Vital Signs: 07:55 BP 117 / 92; Pulse 78; Resp 17; Temp 97.5(TE); Pulse Ox 96% on R/A; Weight 58.97 kg (R);tw2 09:15 BP 169 / 91; Pulse 72; Resp 17 S; Pulse Ox 98% ; jg9 09:30 BP 175 / 69; Pulse 61; Pulse Ox 95% on R/A; jg9 [place] Coma Score: 08:02 Eye Response: spontaneous(4). Verbal Response: oriented(5). Motor Response: obeys tw2 commands(6). Total: 15. Trauma Score (Adult): 08:02 Eye Response: spontaneous(1); Verbal Response: oriented(1); Motor Response: obeys tw2 commands(2); Systolic BP: > 89 mm Hg(4); Respiratory Rate: 10 to 29 per min(4); [place] Score: 15; Trauma Score: 12 08:12 Eye Response: spontaneous(1); Verbal Response: oriented(1); Motor Response: obeys [facility] commands(2); Systolic BP: > 89 mm Hg(4); Respiratory Rate: 10 to 29 per min(4); [place] Score: 15; Trauma Score: 12 Laceration: 09:40 Wound Repair of 5cm ( 2.0in ) subcutaneous laceration to occipital area. Distal jh7 neuro/vascular/tendon intact. Wound prep: Moderate cleansing with hibiclenz by nurse by sc, Extensive cleansing, Wound irrigation, Copious irrigation. Skin closed with 7 1-0 Get using staple gun. Dressed with pressure dressing. Patient tolerated well. MDM: 08:00 Patient medically screened. [facility] 09:00 Differential diagnosis: laceration. Data reviewed: vital signs, nurses notes, lab test [facility] result(s), EKG, radiologic studies, CT scan, plain films. Data interpreted: Pulse oximetry: is 98 %. Interpretation: normal. Counseling: I had a detailed discussion with the patient and/or guardian regarding: the historical points, exam findings, and any diagnostic results supporting the discharge/admit diagnosis, to return to the emergency department if symptoms worsen or persist or if there are any questions or concerns that arise at home, Return in 7 to 10 days for staple removal. ED course: The patient's laceration was repaired with get. Her lab work and imaging were unremarkable. These results were reviewed with the patient and family. She was instructed to return within 7 to 10 days for staple removal. Informed them that the get may become loose when the swelling goes down. Advised to keep the pressure dressing on for 24 hours. If they have any new concerns, he may return to the ER for further eval.. 04/01 08:08 Order name: CBC with Diff; Complete Time: 08:20 [facility] 04/01 08:08 Order name: BMP; Complete Time: 08:48 [facility] 04/01 08:08 Order name: CT Head C Spine; Complete Time: 08:48 [facility] 04/01 08:08 Order name: Tib Fib Left XRAY; Complete Time: 09:33 [facility] 04/01 08:08 Order name: PT-INR; Complete Time: 08:37 [facility] 04/01 08:08 Order name: Troponin HS; Complete Time: 08:48 [facility] 04/01 08:08 Order name: EKG; Complete Time: 08:09 [facility] 04/01 08:20 Order name: XRAY Chest (1 view); Complete Time: 09:33 [facility] EC:26 Rate is 71 beats/min. Rhythm is regular. MT interval is normal. QRS interval is normal. [facility] Clinical impression: No evidence of ischemia. Administered Medications: No medications were administered Disposition Summary: 04/01/22 09:42 Discharge Ordered Location: Home [facility] Problem: new [facility] Symptoms: have improved [facility] Condition: Stable [facility] Diagnosis - Scalp Laceration/ Open wound of scalp [facility] - Unspecified injury of head, initial encounter [facility] Followup: [facility] - With: Emergency Department - When: 7 - 10 days - Reason: Staple/Suture removal Discharge Instructions: - Discharge Summary Sheet [facility] - Head Injury, Adult [facility] - Sutures, Get, or Adhesive Wound Closure [facility] Forms: - Medication Reconciliation Form [facility] - Thank You Letter [facility] - Antibiotic Education [facility] Prescriptions: - Cephalexin 500 mg Oral Capsule - take 1 capsule by ORAL route every 12 hours for 7 days; 14 capsule; Refills: 0, [facility] Product Selection Permitted Signatures: Dispatcher [employer] Beit Krishnan RN RN tw2 Yuliet Clarke, LEAD ARCHITECT LEAD ARCHITECT [facility]
--- NOTE | 2022-04-01 09:42 | ER ---
Nurse's Notes [facility] Name: Zonia Spencer Age: 86 yrs Sex: Female : 1935 Arrival Date: 04/01/2022 Time: 07:51 Bed 13 Private MD: CHECO HATCH Diagnosis: Scalp Laceration/ Open wound of scalp;Unspecified injury of head, initial encounter Presentation: 04/01 07:55 Chief complaint: Patient's son or daughter states: i was in a different room and she tw2 was walking through living room. her head hit a chair. the back of her head is bleeding. she does take a low dose aspirin. no LOC. Coronavirus screen: At this time, the client does not indicate any symptoms associated with coronavirus-19. Ebola Screen: Patient denies travel to an Ebola-affected area in the 21 days before illness onset. Initial Sepsis Screen: Does the patient meet any 2 criteria? No. Patient's initial sepsis screen is negative. Does the patient have a suspected source of infection? No. Patient's initial sepsis screen is negative. Risk Assessment: Do you want to hurt yourself or someone else? Patient reports no desire to harm self or others. Onset of symptoms was April 01, 2022. 07:55 Method Of Arrival: Wheelchair tw2 07:55 Acuity: YAMILETH 3 tw2 08:02 Care prior to arrival: None. Mechanism of Injury: Fall from standing position. Trauma tw2 event details: Injury occurred in the [facility]. Triage Assessment: 07:56 General: Appears in no apparent distress. well groomed, Behavior is calm, cooperative, tw2 appropriate for age, quiet. Pain: Complains of pain in occipital area. Neuro: [place] Agitation-Sedation Scale (RASS): 0 - Alert and Calm Level of Consciousness is awake, alert, obeys commands, Oriented to person, place. Respiratory: Airway is patent Respiratory effort is even, unlabored, Respiratory pattern is regular, symmetrical. Trauma Activation: Alert Physician: ED Physician; Name: ; Notified At: ; Arrived At: Physician: General Surgeon; Name: ; Notified At: ; Arrived At: Physician: Radiology; Name: ; Notified At: ; Arrived At: Physician: Respiratory; Name: ; Notified At: ; Arrived At: Physician: Lab; Name: ; Notified At: ; Arrived At: Historical: - Allergies: 07:56 No Known Allergies; tw2 - Home Meds: 07:56 Vitamin C Oral [Active]; Iron CR 835 mg Oral cpER [Active]; alendronate 70 mg Oral tab tw2 1 tab once wkly [Active]; aspirin 81 mg Oral TbEC 2 tabs once daily [Active]; bupropion HCl 100 mg Oral TbER 1 tab once daily [Active]; carvedilol 25 mg Oral tab 1 tab 2 times per day [Active]; Exelon 9.5 mg/24 hr transdermal pt24 1 patch once daily [Active]; folic acid 1 mg Oral tab 1 tab once daily [Active]; Fish Oil 1,000 mg Oral cap twice a day [Active]; lisinopril Oral [Active]; multivitamin Oral tab daily [Active]; pravastatin 20 mg Oral tab 1 tab once daily [Active]; Vitamin B-12 1,000 mcg Oral tab daily [Active]; - PMHx: 07:56 Dementia; Osteoporosis; Hypertension; High Cholesterol; TIA; tw2 - Immunization history:: Client reports receiving the 2nd dose of the Covid vaccine, Last tetanus immunization: May 2017. - Social history:: Smoking status: Patient/guardian denies using tobacco, the patient reports quitting approximately 5 years ago. - Immunization history: Last tetanus immunization: May per pts daughter. Screenin:04 Abuse screen: Denies threats or abuse. Nutritional screening: No deficits noted. tw2 Tuberculosis screening: No symptoms or risk factors identified. Fall Risk Fall in past 12 months (25 points). Secondary diagnosis (15 points) dementia. Primary Survey: 08:02 NO uncontrolled hemorrhage observed. A: The client is awake and alert. The airway is tw2 patent. The client is alert. Breathing/Chest: Respiratory effort: spontaneous, unlabored, Chest inspection: symmetrical rise and fall of the chest. Circulation: No external hemorrhage present. Regular and strong central pulse, skin warm/dry/normal color. Skin color: pink. Disability Client is alert. Exposure/Environment: All clothing and personal items were removed. Forensic evidence collection is not deemed to be indicated at this time. Items placed in patient belonging bag. There is no evidence of uncontrolled external bleeding. Obvious injury(ies) are noted at this time: laceration to back fo scalp and left booth area, bleeding controlled with pressure dressing to back of head A warming method has been applied: A warm blanket has been provided to the patient. 08:22 Reassessment Alertness and Airway: Awake and alert. The airway is patent. Breathing: jg9 Spontaneous respiratory effort, equal unlabored respirations, breath sounds clear bilaterally, regular pattern with symmetrical chest rise and fall. Circulation: No external hemorrhage noted. Regular and strong central pulse, skin warm/dry/normal color. Disability: Alert. Secondary Survey: 09:27 HEENT: Head Other laceration/injury noted to occipital region. Gastrointestinal: No jg9 deficits noted. : No deficits noted. Musculoskeletal: No deficits noted. Injury Description: Head injury sustained to scalp and occipital area hematoma to scalp and occipital area Skin tears sustained to left leg. Assessment: 08:10 General: Appears in no apparent distress. Behavior is calm, cooperative. Pain: Denies jg9 pain. Neuro: Level of Consciousness is awake, alert, confused, Hx dementia, patient is at baseline. Cardiovascular: No deficits noted. Respiratory: non-productive cough noted. GI: No deficits noted. : No deficits noted. EENT: No deficits noted. Derm: Skin has skin tears on left lower booth injury to occipital region-bleeding controlled but making it difficult to see injury Wound noted scalp and left leg and occipital area. 09:24 Reassessment: Patient head cleaned to expose injury-swelling still present making it jg9 difficult, ice pack reapplied to back of head. Derm: Vital Signs: 07:55 BP 117 / 92; Pulse 78; Resp 17; Temp 97.5(TE); Pulse Ox 96% on R/A; Weight 58.97 kg (R);tw2 09:15 BP 169 / 91; Pulse 72; Resp 17 S; Pulse Ox 98% ; jg9 09:30 BP 175 / 69; Pulse 61; Pulse Ox 95% on R/A; jg9 [place] Coma Score: 08:02 Eye Response: spontaneous(4). Verbal Response: oriented(5). Motor Response: obeys tw2 commands(6). Total: 15. Trauma Score (Adult): 08:02 Eye Response: spontaneous(1); Verbal Response: oriented(1); Motor Response: obeys tw2 commands(2); Systolic BP: > 89 mm Hg(4); Respiratory Rate: 10 to 29 per min(4); [place] Score: 15; Trauma Score: 12 08:12 Eye Response: spontaneous(1); Verbal Response: oriented(1); Motor Response: obeys jh7 commands(2); Systolic BP: > 89 mm Hg(4); Respiratory Rate: 10 to 29 per min(4); [place] Score: 15; Trauma Score: 12 ED Course: 07:51 Patient arrived in ED. bp1 07:51 CHECO HATCH is Private Physician. bp1 07:52 [facility] jh7 07:52 Merritt Gorman MD is Attending Physician. jh7 07:54 Merritt Gorman MD is Attending Physician. jh7 07:56 Triage completed. tw2 07:56 Arm band placed on. tw2 07:59 Yuliet Joyce, RN is Primary Nurse. jg9 08:00 Placed in gown. Bed in low position. Call light in reach. Adult w/ patient. Client tw2 placed on continuous cardiac and pulse oximetry monitoring. NIBP monitoring applied. 08:02 Thermoregulation: warm blanket given to patient. tw2 08:04 Patient maintains SpO2 saturation greater than 95% on room air. tw2 08:29 CT Head C Spine In Process Unspecified. EDMS 08:48 Wound care: located on occipital area was cleaned with soap and water, irrigated with jg9 normal saline, dressed with pressure bandage to control bleeding, ice pack applied. Patient tolerated well. 09:14 Tib Fib Left XRAY In Process Unspecified. EDMS 09:14 XRAY Chest (1 view) In Process Unspecified. EDMS 09:24 No apparent distress. Resting quietly. Pt visited by daughter. jg9 09:25 Wound care: to abrasion, located on left leg was cleaned with soap and water, dressed jg9 with Neosporin, 4X4s, acewrap, ice pack applied. Patient tolerated well. 10:00 Assist provider with laceration repair on occipital area using randy. Set up tray. jg9 Performed by Yuliet MACE Dressed with abd pad and kin wrap Patient tolerated well. 10:00 IV discontinued. jg9 Administered Medications: No medications were administered Medication: 08:22 VIS not applicable for this client. jg9 Intake: 10:00 PO: 0ml; IV: 0ml; Tubes: 0ml (); Total: 0ml. jg9 Output: 10:00 Urine: 0ml; Gastric: 0ml; Stool: 0; EBL: 0ml; Drainage: 0ml; Other: 0; Total: 0ml. jg9 Outcome: 09:42 Discharge ordered by . jh7 09:58 Discharged to home via wheelchair. jg9 09:58 Condition: good 09:58 Discharge instructions given to patient, family, Instructed on discharge instructions, follow up and referral plans. Demonstrated understanding of instructions, follow-up care, medications, Prescriptions given X 1. 09:58 Patient's length of stay in the Emergency Department was greater than 2 hours. awaiting results/requiring randy to injured site. Patient's length of stay extended due to 10:01 Patient left the ED. jg9 Signatures: Dispatcher [employer] EDCA Beti Simpson RN RN tw2 Lizzy Leiva [facility] Yuliet Joyce, MINO RN jg9 Yuliet Clarke, [employer] [place] [id number]
[2022-04-01 10:06] VITALS: TEMP 97.5
[2022-04-01 10:14] VITALS: BP 175/69; O2SAT 95
--- NOTE | 2022-04-03 14:35 | EKG ---
Test Date: 2022-04-01 Test Time: 08:26:22 [employer] Supervisor: PHILLIP MEASUREMENT RESULTS: Intervals: Rate: 71 TN: 136 QRSD: 122 QT: 492 QTc: 534 [place]: P: 67 TN: 136 QRS: -69 T: 38 INTERPRETIVE STATEMENTS: Normal sinus rhythm RSR' or QR pattern in V1 suggests right ventricular conduction delay Left anterior fascicular block Cannot rule out Inferior infarct, age undetermined Anterior infarct, age undetermined Abnormal ECG Compared to ECG 07/15/2019 09:23:34 RSR' in V1 or V2 now present Incomplete right bundle-branch block no longer present Myocardial infarct finding still present Electronically Signed On 04-03-22 14:33:36 CDT by Korey Dennis
== END 2022-04-01 10:01 | disposition home or self-care (01) ==
LOC: ER 07:49
PROC: 0JQ00ZZ Repair Scalp Subcutaneous Tissue and Fascia, Open Approach (ICD-10-PCS; principal; 2022-04-01)
DX: S01.01XA Laceration without foreign body of scalp, initial encounter (principal); W19.XXXA Unspecified fall, initial encounter; I10 Essential (primary) hypertension; E78.00 Pure hypercholesterolemia, unspecified; F03.90 Unspecified dementia, unspecified severity, without behavioral disturbance, psychotic disturbance, mood disturbance, and anxiety; Z79.82 Long term (current) use of aspirin
CPT/HCPCS: 36415; 70450; 71045; 72125; 80048; 84484; 85025; 85610; 93005; 99284

== ENCOUNTER 2022-04-09 08:47 | Emergency (ER) | payer OTHER ==
--- OUTSIDE RECORDS SUMMARY | 2022-04-09 08:50 | XMS REPORT | Continuity of Care Document ---
:1935 Author Organization [facility] t Address [address] [place] [address] Care Team Providers Name Role Phone GUANACO [...] rs active active ity of problems problems [facility] Allergies, Adverse Reactions, Alerts Allergy Allergy Status Severity Reaction(s) Onset Inactive Treating Comm ents Source Name Type Date Date Clinician TREE NUT DRUG Active Swelling Univer s INGREDI 05-11 ity of 00:00: [address] Tree Nut Propensi Active Swelling Only with U nivers ty to 05-11 "mixed ity of adverse 00:00: nuts". [place] reaction [address] [place] [address] s Dexter Social History Social Habit Start Date Stop Date Quantity Comments Source Sex Assigned At [facility] History of Smoker University of tobacco use [facility] Exposure to Not sure University of SARS-CoV-2 [place] [facility] (event) Branch Tobacco use and 2020-10-14 2020-10-14 Never used Universit y of exposure 00:00:00 00:00:00 [facility] Branch Alcohol intake 2020-03-11 2020-03-11 Ex-drinker [facility] 00:00:00 00:00:00 (finding) Medicine Tobacco Comment 2016-04-16 2016-04-16 stopped 3 yrs [facility] of 00:00:00 00:00:00 ago Medicine Smoking Status Start Date Stop Date Source Former smoker 2020-03-11 00:00:00 2020-03-11 00:00:00 [facility] of Medicine Medications Ordered Filled Start Stop Current Ordering Indication Dosage Frequency Signature Comments Components Source Medication Medication Date Date Medication? Clinician (SIG) Name Name levETIRAcet Yes [id number] 1000mg Take 1 Univers am 1,000 mg 4-08 tablet by ity of tablet 00:00: mouth 2 (two) Medical times Branch daily. divalproex 0 Yes [id number] 250mg Take 1 Univers ER 250 mg 4-08 tablet by ity o f 24 hr 00:00: mouth [place] tablet 00 every 24 Medical (twenty-fo Branch ur) hours. levETIRAcet 0 Yes [id number] 1000mg Take 1 Univers am 1,000 mg 4-08 tablet by ity of tablet 00:00: mouth 2 (two) Medical times Branch daily. divalproex 2021-0 Yes [id number] 250mg Take 1 Univers ER 250 mg 4-08 tablet by ity o f 24 hr 00:00: mouth [place] tablet 00 every 24 Medical (twenty-fo Branch ur) hours. LEVETIRACET 2021-2021- No Take 1 Uni vers AM 1,000 mg 3-08 04-08 tablet by it y of tablet 00:00: 00:00 mouth [place] 00 :00 twice Medical daily Branch DIVALPROEX 2021-0 2021- No [id number] TAKE 1 Univers ER 250 mg 3-08 04-08 TABLET BY ity of 24 hr 00:00: 00:00 MOUTH [place] tablet 00 :00 EVERY 24 Medical HOURS Branch LEVETIRACET 2021-0 2021- No Take 1 Uni vers AM 1,000 mg 3-08 04-08 tablet by it y of tablet 00:00: 00:00 mouth [place] 00 :00 twice Medical daily Branch DIVALPROEX 0 2021- No [id number] TAKE 1 Univers ER 250 mg 01-05-08 TABLET BY ity of 24 hr 00:00: 00:00 MOUTH [place] tablet 00 :00 EVERY 24 Medical HOURS Branch aspirin-james 2019-10 Yes 162mg Take 162 U nivers cium 2-15 mg by ity of carbonate 08:26: mouth. [place] 81 mg-300 44 Medical mg Branch calcium(777 mg) Tab foLIC acid 2019-10 Yes 1mg Take 1 mg Un antoinette 1 mg tablet 2-15 by mouth. ity of 08:26: [address] Branch Potassium 2019-10 Yes Take by Univ ers 99 mg Tab 2-15 mouth. ity of 08:26: [address] Branch aspirin-james 2019-10 Yes 162mg Take 162 U nivers cium 2-15 mg by ity of carbonate 08:26: mouth. [place] 81 mg-300 44 Medical mg Branch calcium(777 mg) Tab foLIC acid 2019-10 Yes 1mg Take 1 mg Un antoinette 1 mg tablet 2-15 by mouth. ity of 08:26: [address] Branch Potassium 2019-10 Yes Take by Univ ers 99 mg Tab 2-15 mouth. ity of 08:26: [address] Branch alendronate 2019-10 Yes Univer s 70 mg 2-14 ity of tablet 00:00: [place] [facility] alendronate 2019-10 Yes Univer s [...] 0.1 mg 1-04 ity of tablet 00:00: [place] [facility] cloNIDine 2020- Yes Univers 0.1 mg 1-04 ity of tablet 00:00: [place] [facility] carvediloL 2020- Yes Univers 6.25 mg 0-02 ity of tablet 00:00: [place] [facility] carvediloL 2019- Yes Univers 6.25 mg 0-02 ity of tablet 00:00: [place] [facility] pravastatin 2020-0 Yes 20mg Take 20 mg Univers 20 mg 9-25 by mouth ity of tablet 00:00: at [place] [address] bedtime. Medical Branch pravastatin 2020-0 Yes 20mg Take 20 mg Univers 20 mg 9-25 by mouth ity of tablet 00:00: at [place] 00 bedtime. Medical Branch pravastatin 2020-0 Yes 20mg Take 20 mg [facility] (PRAVACHOL) 5-12 by mouth Inder ege 20 MG 14:38: daily. of tablet 15 Medicin e [place]-3 2020-0 Yes Take by [facility] Fatty Acids 5-12 mouth. Colleg e (FISH OIL 14:38: of BURP-LESS 15 Medicin OR) e aspirin 81 2020-0 Yes 162mg Take 162 [facility] MG tablet 5-12 mg by College 14:38: mouth of 15 daily. Medicin e folic acid 2020-0 Yes 1mg Take 1 mg [facility] (FOLVITE) 1 5-12 by mouth Inder ege MG tablet 14:38: daily. of 15 Medicin e levETIRAcet 2020-0 Yes 1000mg Take 1,000 Juice am (KEPPRA) 5-12 mg by College 1000 MG 00:00: mouth of TABS 00 every 12 Medicin hours. e levetiracet 2018-10 2020- No 750mg Take 1 Tab Juice am (KEPPRA) 2-03 05-12 by mouth Col [...] 1 [place] [facility] (COREG) 0-18 TABLET BY [place] 6.25 MG 00:00: MOUTH of tablet 00 TWICE Medicin DAILY WITH e FOOD clonidine Yes IF BLOOD [facility] or (CATAPRES) 9-18 PRESSURE Colle ge 0.1 MG 00:00: IS HIGHER of tablet 00 THAN 170 Medicin 100 TAKE e ONE TABLET BY MOUTH EVERY 8 HOURS NEEDED (THREE TIMES A DAY) [place]-3 Yes Take by Juice Fatty Acids 8- mouth. Charan jiang (FISH OIL 15:12: of BURP-LESS 05 Medicin OR) e folic acid Yes 1mg Take 1 mg [facility] (FOLVITE) 1 8- by mouth Inder ege MG tablet 15:12: daily. of 05 Medicin e pravastatin Yes 20mg Take 20 mg [facility] (PRAVACHOL) 8-22 by mouth Inder ege 20 MG 15:12: daily. of tablet 05 Medicin e rivastigmin 2019- No 4.5mg Take 4.5 Juice e (EXELON) 8-22 08-22 mg by [place] 4.5 MG 15:12: 00:00 mouth two of capsule 05 :00 times Medicin daily. e aspirin 81 Yes 162mg Take 162 Ba [facility]lor MG tablet 8-22 mg by [place] 15:11: mouth of 44 daily. Medicin e [...] e B Complex 2019- No Take by [place] faby Vitamins (B 06-21- mouth. Colle ge COMPLEX 1 15:11: 00:00 of OR) 14 :00 Medicin e levetiracet Yes 500mg Take 1 Tab [facility] am (KEPPRA) 06-21 by mouth Inder ege 500 MG 00:00: two times of tablet 00 daily. Medicin e levetiracet 2019- No 250mg Take 250 Juice am (KEPPRA) 30 08- mg by Charan jiang 250 MG 00:00: 00:00 mouth. of tablet 00 :00 Medicin e rivastigmin Yes APPLY 1 [facility] e 4.6 7-19 PATCH College MG/24HR 00:00: TOPICALLY of PT24 00 EVERY 24 Medicin HOURS e rivastigmin Yes APPLY 1 [place] faby e 4.6 7-19 PATCH College MG/24HR 00:00: TOPICALLY of PT24 00 EVERY 24 Medicin HOURS e diflupredna 2019- No 1[drp] Place 1 [facility] te 706-21 Drop into [place] (DUREZOL) 00:00: 00:00 the left of 0.05 % 00 :00 eye 3 Medicin ophthalmic times e emulsion daily. Immunizations Ordered Filled Immunization Date Status Comments [facility] e Immunization Name Name SARS-COV-2 COVID-19 2020-12-31 Completed Unive rsity of PFIZER VACCINE 00:00:00 [facility] SARS-COV-2 COVID-19 2020-12-31 Completed Unive rsity of PFIZER VACCINE 00:00:00 [facility] SARS-COV-2 COVID-19 2020-12-10 Completed Unive rsity of PFIZER VACCINE 00:00:00 [facility] SARS-COV-2 COVID-19 2020-12-10 Completed Unive rsity of PFIZER VACCINE 00:00:00 [facility] Vital Signs Vital Name Observation Time Observation Value Comments Source Systolic blood 2022-02-05 16:56:00 80 mm[Hg] [facility] [place] pressure [facility] Branch Diastolic blood 2022-02-05 16:56:00 51 mm[Hg] Unive rsity of [place] pressure [facility] Branch Heart rate 2022-02-05 16:54:00 52 /min [facility] Oxygen saturation 2022-02-05 16:54:00 99 /[facility] Medical Br anch by Pulse oximetry Systolic blood 2020-03-11 14:36:00 128 mm[Hg] [facility] of pressure Medicine Diastolic blood 2020-03-11 14:36:00 70 mm[Hg] [facility] of pressure Medicine Heart rate 2020-03-11 14:36:00 70 /min [facility] of Medicine Body height 2020-03-11 14:36:00 160 cm [facility] Body weight 2020-03-11 14:36:00 66.225 kg [facility] BMI 2020-03-11 14:36:00 25.86 kg/m2 [facility] Systolic blood 2020-03-11 14:36:00 128 mm[Hg] [employer] [employer] of pressure Medicine Diastolic blood 2020-03-11 14:36:00 70 mm[Hg] [facility] of pressure Medicine Heart rate 2020-03-11 14:36:00 70 /min [facility] Body height 2020-03-11 14:36:00 160 cm [facility] Body weight 2020-03-11 14:36:00 66.225 kg [facility] BMI 2020-03-11 14:36:00 25.86 kg/m2 [facility] Systolic blood 2019-06-21 14:59:00 180 mm[Hg] [employer] [facility] pressure Medicine Diastolic blood 2019-06-21 14:59:00 88 mm[Hg] [facility] of pressure Medicine Heart rate 2019-06-21 14:59:00 68 /min [facility] Body height 2019-06-21 14:59:00 160 cm [facility] Body weight 2019-06-21 14:59:00 64.411 [facility] BMI 2019-06-21 14:59:00 25.15 kg/m2 [facility] Systolic blood 2019-06-21 14:59:00 180 mm[Hg] [facility] pressure Medicine Diastolic blood 2019-06-21 14:59:00 88 mm[Hg] [facility] pressure Medicine Heart rate 2019-06-21 14:59:00 68 /min [facility]lege [facility] Body height 2019-06-21 14:59:00 160 cm [facility] Body weight 2019-06-21 14:59:00 64.411 kg [facility] BMI 2019-06-21 14:59:00 25.15 kg/m2 [facility] Procedures This patient has no known procedures. Plan of Care Planned Activity Planned Date Details Comments Source Future Scheduled Test MEDICARE AWV [code = [employer] [facility] MEDICARE AWV] Medicine Future Scheduled Test TETANUS SHOT (ADULT) [facility] [code = TETANUS SHOT Medicin e (ADULT)] Future Scheduled Test BMI FOLLOW UP PLAN [facility] [code = BMI FOLLOW UP Medici ne PLAN] Future Scheduled Test FALL SCREEN [code = [facility] of FALL SCREEN] Medicine Future Scheduled Test OSTEOPOROSIS SCREENING [facility] [code = OSTEOPOROSIS Medicin e SCREENING] Future Scheduled Test PNEUMOVAX >=65 (PPSV23) [facility] [code = PNEUMOVAX >=65 Medic ine (PPSV23)] Future Scheduled Test PREVNAR >= 65 (PCV13) [facility] [code = PREVNAR >= 65 Medici ne (PCV13)] Future Scheduled Test FLU VACCINE > 6 MONTHS [facility] [code = FLU VACCINE > 6 Medi cine MONTHS] Future Scheduled Test TETANUS SHOT (ADULT) [facility] [code = TETANUS SHOT Medicin e (ADULT)] Future Scheduled Test BMI FOLLOW UP PLAN [facility] [code = BMI FOLLOW UP Medici ne PLAN] Future Scheduled Test MEDICARE AWV (Initial) [facility] [code = MEDICARE AWV Medicin e (Initial)] Future Scheduled Test FALL SCREEN [code = [facility] of FALL SCREEN] Medicine Future Scheduled Test OSTEOPOROSIS SCREENING [facility] [code = OSTEOPOROSIS Medicin e SCREENING] Future Scheduled Test PNEUMOVAX >=65 (PPSV23) [facility] [code = PNEUMOVAX >=65 Medic ine (PPSV23)] Future Scheduled Test PREVNAR >= 65 (PCV13) [facility] [code = PREVNAR >= 65 Medici ne (PCV13)] Future Scheduled Test FLU VACCINE > 6 MONTHS [facility] [code = FLU VACCINE > 6 Medi cine MONTHS] Encounters Start End Encounter Admission Attending Care Care Encounter Source Date/Time Date/Time Type Type Clinicians Facility Department ID 2021-11-25 Outpatient Ramakrishna[facility] [id number] Common 14:37:25 Jyoti [facility] 2022-02-23 2022-02-23 [id number] Common 00:00:00 00:00:00 [facility] 2022-02-05 2022-02-05 Office Jayleen RUST [id number] Univers 11:20:00 12:18:23 Visit Andrew [facility] [id number] [place] 4.2.7.2.686 Mitch as DAVID?BLEA [phone] [address] MEDICAL OFFICE BUILDING 2022-02-05 2022-02-05 Outpatient ANDREW PIZANO [facility] [id number] Univers 11:20:00 12:18:23 ANDREW CLEMENS [facility] 2021-11-18 2021-11-18 ambulatory [facility] [id number] Common 00:00:00 00:00:00 [facility] 2021-02-17 2021-02-17 Refradha Clemens RUST [id number] 00:00:00 00:00:00 Andrew Diaz [id number] [place] [id number] Professio [phone] [facility] 2021-01-05 2021-01-05 [facility] [id number] 00:00:00 00:00:00 Andrew Diaz [id number] [place] [id number] Professio [phone] [address] 2020-12-01 2020-12-01 Telephone Jayleen COROLAND [id number] 00:00:00 00:00:00 Andrew Diaz [id number] [place] [id number] Professio [phone] [address] 2020-10-21 2020-10-21 Orders Doctor RADHIKA [id number] 00:00:00 00:00:00 Only Unassigned, NASIR [id number] [facility] [id number] [id number] 009 2020-10-14 2020-10-14 Office Jayleen COROLAND [id number] 08:06:43 08:55:39 Visit Andrew Diaz [id number] [place] 4.2.7.2.686 Professio [phone] [address] 2020-03-11 2020-03-11 Office NARGIS Gorman [id number] [facility] 08:58:57 10:06:25 Visit Nicolaas AMBULATOR [id number] College José Y 0.2.7.2.686 of [phone] [facility] 800 e 2020-03-11 2020-03-11 Office NARGIS Gorman [id number] 08:58:57 10:06:25 Visit Nicolaas AMBULATOR [id number] [place] 0.2.7.2.686 [id number] 800 2019-06-21 2019-06-21 Office NRAGIS Gorman [id number] [facility] 08:56:22 12:28:39 Visit Nicolaas AMBULATOR [id number] College José Y 0.2.7.2.686 of [phone] [facility] 800 e 2019-06-21 2019-06-21 Office NARGIS Gorman [id number] 08:56:22 12:28:39 Visit Natalya AMBULATOR [id number] José Y 0.2.7.2.686 [phone] 800 Results Test Description Test Time Test Comments Results Result [facility] e Comments CT, CTANGIO BRAIN 2019-11-21 FINAL REPORT PATIENT 07:33:00 ID: [id number] CT, CAROTID, ANGIO, CT, CTANGIO BRAIN HISTORY: [...] measured as a percentage relative to the iliamna artery distal to the stenosis (NASCET). CERVICAL [...] Cannon Verified Date/Time: 11/21/2019 07:33:55 Reading Location: [facility] Reading Room [address] [place] [address] , CAROTID, ANGIO 2019-11-21 FINAL REPORT PATIENT 07:33:00 ID: [id number] CT, CAROTID, ANGIO, CT, CTANGIO BRAIN HISTORY: [...] measured as a percentage relative to the iliamna artery distal to the stenosis (NASCET). CERVICAL [...] Cannon Verified Date/Time: 11/21/2019 07:33:55 Reading Location: [facility] Reading Room [address] [place] [address] -CREATININE 2019-11-20 10:29:00 Test Item Value Reference Range Interpretation Comme nts POC-CREATININE (BEAKER) (test 1.2 mg/dL 0.6-1.3 TESTED AT [facility] 7200 code = 1859) [facility] [id number] POC-EGFR (BEAKER) (test code = 43 mL/min/1.73M2 1860) EEG AWAKE AND [id number] 14:23:00Reason for exam:->Episode of unresponsiveness.DATE OF REPORT: 05/29/2019NAME: Enoc MixonMRN: [id number] of : 4ACC: [id number]: [id number] time: 12:36 PMStop time: 13:00 PM ICD-10: R56.9 CPT Code: 69831 HISTORY: Enoc Mixon is a 83 y.o. [...] recorded with 32 input channels on a [employer] system, reviewed with bipolar and referential montages [...] MDNeurophysiology Fellow Yuliet Arellano MD Attending Neurophysiologist [facility] [place] GLOBIN [id number] 10:12:00 Test Item Value Reference Range Interpretation Comments HEMOGLOBIN A1C (BEAKER) (test code = 4.8 % 4.3-6.1 368) CBC W/PLT COUNT & AUTO [id number] 08:26:00 Test Item Value Reference Range Interpretation [...] PERCENT (BEAKER) (test code = 2801) C-REACTIVE [id number] 06:38:00 Test Item Value Reference Range Interpretation Comments C-REACTIVE PROTEIN (BEAKER) (test 0.11 mg/dL 0.00-0.50 code = 676) HEPATIC FUNCTION [id number] 06:37:00 Test Item Value Reference Range Interpretation [...] = 9 U/L 6-55 347) BASIC METABOLIC [id number] 06:37:00 Test Item Value Reference Range Interpretation [...] FOR DIALYSIS PATIEN TS. TSH/FREE T4 IF [id number] 06:34:00 Test Item Value Reference Range Interpretation Comments THYROID STIMULATING HORMONE 1.83 uIU/mL 0.35-4.94 (BEAKER) (test code = 772) VITAMIN B12 AND [id number] 04:46:00 Test Item Value Reference Range Interpretation Comments VITAMIN B12 (BEAKER) (test code = > pg/mL 213-816 H 774) FOLATE (BEAKER) (test code = 362) 19.6 ng/mL >=7.0 MR, MRA, BRAIN, WITHOUT [id number] 02:18:00Reason for exam:->Ischemic Stroke EvaluationFINAL REPORT MRA head and neck without contrast. CLINICAL HISTORY: Ischemic stroke evaluation. COMPARISON: None. TECHNIQUE: Two- and three-dimensional [id number]-sl-zkgehb MRA images of the intra- and extracranial carotid and vertebral arterial circulations were obtained, from which maximal intensity projection 3-D reconstructions were created. FINDINGS: MRA neck: There is no vesselocclusion or NASCET-quantifiable stenosis in the extracranial carotid or vertebral arterial circulations. Flow is antegrade in both vertebral arteries. MRA three affiliated of [place]: There is no vessel occlusion [...] 05/28/2019 02:18:00 MR, MRA, NECK, WITHOUT IV [id number] 02:18:00Reason for exam:->Ischemic Stroke EvaluationFINAL REPORT MRA head and neck without contrast. CLINICAL HISTORY: Ischemic stroke evaluation. COMPARISON: None. TECHNIQUE: Two- and three-dimensional lhvg-md-vdzdkr MRA images of the intra- and extracranial carotid and vertebral arterial circulations were obtained, from which maximal intensity projection 3-D reconstructions were created. FINDINGS: MRA neck: There is no vesselocclusion or NASCET-quantifiable stenosis in the extracranial carotid or vertebral arterial circulations. Flow is antegrade in both vertebral arteries. MRA three affiliated of [place]: There is no vessel occlusion [...] Verified Date/Time: 05/28/2019 02:18:00 MR, BRAIN, WITHOUT [id number] 02:09:00Reason for exam:->Ischemic Stroke EvaluationFINAL REPORT Exam: [...] Reece MDReport Verified Date/Time: 05/28/2019 02:09:16 LIPID [id number] 00:06:00 Test Item Value Reference Range Interpretation [...] 160-189 Very High >=190URINALYSIS WITH MICROSCOPIC IF [id number] 00:01:00 Test Item Value Reference Range Interpretation [...] 0.2-1.0 = 463) SOURCE(BEAKER) (test code = 1995) CBC W/PLT COUNT & AUTO [id number] 23:49:00 Test Item Value Reference Range Interpretation [...]
--- NOTE | 2022-04-09 09:30 | ER ---
Nurse's Notes [facility] Name: Zonia Spencer Age: 86 yrs Sex: Female : 1935 Arrival Date: 04/09/2022 Time: 08:48 Bed 11 Private MD: Diagnosis: Encounter for Staple Removal, unspecified Presentation: 04/09 08:52 Chief complaint: Patient's son or daughter states: here to get randy out. its been 8 tw2 days. no complications. no s/s infection. Coronavirus screen: At this time, the client does not indicate any symptoms associated with coronavirus-19. Ebola Screen: Patient denies travel to an Ebola-affected area in the 21 days before illness onset. Initial Sepsis Screen: Does the patient meet any 2 criteria? No. Patient's initial sepsis screen is negative. Does the patient have a suspected source of infection? No. Patient's initial sepsis screen is negative. Risk Assessment: Do you want to hurt yourself or someone else? Patient reports no desire to harm self or others. Onset of symptoms was April 09, 2022. 08:52 Method Of Arrival: Wheelchair tw2 08:52 Acuity: YAMILETH 5 tw2 Triage Assessment: 08:53 General: Appears in no apparent distress. well groomed, Behavior is calm, cooperative, tw2 appropriate for age. Pain: Denies pain. Neuro: Level of Consciousness is awake, alert, obeys commands, Oriented to person, place, time, situation. Historical: - Allergies: 08:53 No Known Allergies; tw2 - Home Meds: 08:58 Iron CR 835 mg Oral cpER [Active]; bupropion HCl 100 mg Oral TbER 1 tab once daily tw2 [Active]; aspirin 81 mg Oral TbEC 2 tabs once daily [Active]; carvedilol 25 mg Oral tab 1 tab 2 times per day [Active]; alendronate 70 mg Oral tab 1 tab once wkly [Active]; multivitamin Oral tab daily [Active]; folic acid 1 mg Oral tab 1 tab once daily [Active]; pravastatin 20 mg Oral tab 1 tab once daily [Active]; Fish Oil 1,000 mg Oral cap twice a day [Active]; Exelon 9.5 mg/24 hr transdermal pt24 1 patch once daily [Active]; lisinopril Oral [Active]; Vitamin B-12 1,000 mcg Oral tab daily [Active]; Vitamin C Oral [Active]; - PMHx: 08:53 Dementia; High Cholesterol; Hypertension; Osteoporosis; TIA; tw2 - Immunization history:: Adult Immunizations. - Social history:: Smoking status: . Screenin:57 Abuse screen: Denies threats or abuse. Nutritional screening: No deficits noted. tw2 Tuberculosis screening: No symptoms or risk factors identified. Fall Risk Secondary diagnosis (15 points) impaired mobility. Assessment: 08:58 Reassessment: suture removal kit handed to provider at this time. tw2 09:37 General: Appears in no apparent distress. Behavior is calm, cooperative. iw Vital Signs: 08:52 BP 120 / 65; Pulse 82; Resp 17; Temp 97.8(TE); Pulse Ox 96% on R/A; tw2 ED Course: 08:48 Patient arrived in ED. as 08:53 Triage completed. tw2 08:54 Arm band placed on. tw2 08:55 Valente Murguia PA is PHCP. [facility] 08:55 Merritt Gorman MD is Attending Physician. [facility] 08:57 Beti Simpson, RN is Primary Nurse. tw2 08:57 Bed in low position. Call light in reach. Adult w/ patient. tw2 08:57 No provider procedures requiring assistance completed. Patient did not have IV access tw2 during this emergency room visit. Administered Medications: No medications were administered Medication: 08:57 VIS not applicable for this client. tw2 Outcome: 09:30 Discharge ordered by . [facility] 09:37 Discharged to home via wheelchair, with family. iw 09:37 Condition: good 09:37 Discharge instructions given to family, Instructed on discharge instructions, follow up and referral plans. Demonstrated understanding of instructions, follow-up care. 09:38 Patient left the ED. iw Signatures: Valente Murguia PA PA jmm Martinez, Amelia as Williams, Irene, RN RN iw Beti Simpson RN RN tw2
--- NOTE | 2022-04-09 09:30 | EDPHYS ---
Physician Documentation [facility] Name: Zonia Spencer Age: 86 yrs Sex: Female : 1935 Arrival Date: 04/09/2022 Time: 08:48 Bed 11 Private MD: DESMOND Physician Merritt Gorman HPI: 04/09 09:26 This 86 yrs old Female presents to ER via Wheelchair with complaints of Staple Removal. jmm 09:26 The patient has randy on the scalp. Sutures/randy progress: The patient has no jmm c/o's. The wound is well-healing with no redness, swelling, discharge, or dehiscence reported. It is unknown whether or not the patient has had similar symptoms in the past. Historical: - Allergies: 08:53 No Known Allergies; tw2 - Home Meds: 08:58 Iron CR 835 mg Oral cpER [Active]; bupropion HCl 100 mg Oral TbER 1 tab once daily tw2 [Active]; aspirin 81 mg Oral TbEC 2 tabs once daily [Active]; carvedilol 25 mg Oral tab 1 tab 2 times per day [Active]; alendronate 70 mg Oral tab 1 tab once wkly [Active]; multivitamin Oral tab daily [Active]; folic acid 1 mg Oral tab 1 tab once daily [Active]; pravastatin 20 mg Oral tab 1 tab once daily [Active]; Fish Oil 1,000 mg Oral cap twice a day [Active]; Exelon 9.5 mg/24 hr transdermal pt24 1 patch once daily [Active]; lisinopril Oral [Active]; Vitamin B-12 1,000 mcg Oral tab daily [Active]; Vitamin C Oral [Active]; - PMHx: 08:53 Dementia; High Cholesterol; Hypertension; Osteoporosis; TIA; tw2 - Immunization history:: Adult Immunizations. - Social history:: Smoking status: . ROS: 09:26 Constitutional: Negative for fever, chills, and weight loss, Cardiovascular: Negative jm for chest pain, palpitations, and edema, Respiratory: Negative for shortness of breath, cough, wheezing, and pleuritic chest pain. 09:26 Skin: Positive for laceration(s). 09:26 All other systems are negative. Exam: 09:26 Constitutional: This is a well developed, well nourished patient who is awake, alert, jmm and in no acute distress. 09:26 Eyes: EOMI, no conjunctival erythema appreciated ENT: Moist Mucus Membranes Neck: Trachea midline, Supple Chest/axilla: Normal chest wall appearance and motion. Cardiovascular: Regular rate and rhythm. No edema appreciated Respiratory: Normal respirations, no respiratory distress appreciated Abdomen/GI: Non distended, soft Back: Normal ROM Skin: General appearance color normal MS/ Extremity: Moves all extremities, no obvious deformities appreciated, no edema noted to the lower extremities Neuro: Awake and alert Psych: Behavior is normal, Mood is normal, Patient is cooperative and pleasant 09:26 Head/face: healing laceration noted to the posterior scalp. Vital Signs: 08:52 BP 120 / 65; Pulse 82; Resp 17; Temp 97.8(TE); Pulse Ox 96% on R/A; tw2 Procedures: 09:27 Suture/Staple removal: Removed 5 randy, from scalp, site appears well healed, Patient jm tolerated well. MDM: 08:59 Patient medically screened. [facility] 09:28 Data reviewed: vital signs, nurses notes. Counseling: I had a detailed discussion with elijah the patient and/or guardian regarding: the historical points, exam findings, and any diagnostic results supporting the discharge/admit diagnosis, the need for outpatient follow up, to return to the emergency department if symptoms worsen or persist or if there are any questions or concerns that arise at home. 04/09 09:17 Order name: Wound Care; Complete Time: 09:26 [facility] Administered Medications: No medications were administered Disposition Summary: 04/09/22 09:30 Discharge Ordered Location: Home [facility] Condition: Stable [facility] Diagnosis - Encounter for Staple Removal, unspecified [facility] Followup: [facility] - With: Private Physician - When: As needed - Reason: Recheck today's complaints, Continuance of care, Re-evaluation by your physician Discharge Instructions: - Discharge Summary Sheet [facility] - Suture Removal, Care After m Forms: - Medication Reconciliation Form [facility] - Thank You Letter [facility] - Antibiotic Education [facility] - Prescription Opioid Use [facility] Signatures: Merritt Gorman MD MD cha Mickail, Joel, PA PA jmm Wise, Tara RN RN tw2
[2022-04-09 09:43] VITALS: BP 120/65; TEMP 97.8; O2SAT 96
== END 2022-04-09 09:38 | disposition home or self-care (01) ==
LOC: ER 08:47
DX: Z48.02 Encounter for removal of sutures (principal)
CPT/HCPCS: 99281